=== PATIENT | male | born 1980 | race Two or more races ===

== ENCOUNTER 2024-03-30 06:08 | Inpatient (IN) | payer SELFPAY ==
[2024-03-30] VITALS (29 sets, daily range): BP systolic 118–182; BP diastolic 60–89; PULSE 63–88; TEMP 36.6–37; O2SAT 91–100; BMI 30.7; BMI 31.6
--- NOTE | 2024-03-30 06:39 | ED.GENADUL1 ---
HPI HPI - General Adult General Chief complaint: Dizziness Stated complaint: DIZZINESS Time Seen by Provider: 03/30/24 06:32 Source: patient Mode of arrival: ambulance Limitations: no limitations History of Present Illness HPI narrative: patient states he was [place] on [address] to [place] to visit his son. He became dizzy and describes spinning. States he pulled over at a [place]. Developed chest pressure and dyspnea . He was advised to call 911. States pressure lasted about 30 minutes. Now only has mild pain . Brought to ED by [facility]. No past history of heart disease. States he was diagnosed with cancer 6-8 years ago. No follow up Related Data Home Medications ?Medication ?Instructions ?Recorded ?Confirmed No Known Home Medications 03/30/24 03/30/24 Allergies Allergy/AdvReac Type Severity Reaction Status Date / Time No Known Drug Allergies Allergy Verified 03/30/24 06:17 Opioid HPI Opioid Management Most Recent Opioid Data: No Data to Display Review of Systems ROS Status of ROS 10 or more systems reviewed and unremarkable except as noted in history and below Exam Constitutional Vital Signs, click to edit/add: Last Vital Signs Temp 98.6 F 03/30/24 06:10 Pulse 81 03/30/24 06:10 Resp 18 03/30/24 06:35 BP 172/78 H 03/30/24 06:10 Pulse Ox 100 03/30/24 06:10 O2 Del Method Room Air 03/30/24 06:10 Common normals: no apparent distress, average body habitus, oriented x3, no limitations, healthy appearing, alert and well nourished [facility] Common normals: normocephalic and head/scalp atraumatic Eye Common normals: PERRL and EOMs intact bilaterally Respiratory Common normals: normal respiratory effort, no retractions, no use of accessory muscles and clear to auscultation bilaterally Cardio Common normals: regular rate, regular rhythm, S1 normal heart sound and S2 normal heart sound GI Common normals: Normal to inspection, nondistended, normoactive bowel sounds present, soft to palpation and non-tender Extremity Common normals: normal to inspection and full ROM Neuro Common normals: oriented x3, CN's II-XII intact bilaterally, moves all extremities and no focal motor deficits Psych Appearance: grossly normal Course Vital Signs Vital signs: Vital Signs Temperature 98.6 F 03/30/24 06:10 Pulse Rate 81 03/30/24 06:10 Respiratory Rate 18 03/30/24 06:10 Blood Pressure 172/78 H 03/30/24 06:10 Pulse Oximetry 100 03/30/24 06:10 Oxygen Delivery Method Room Air 03/30/24 06:10 Temperature 98.6 F 03/30/24 06:10 Pulse Rate 81 03/30/24 06:10 Respiratory Rate 18 03/30/24 06:35 Blood Pressure 172/78 H 03/30/24 06:10 Pulse Oximetry 100 03/30/24 06:10 Oxygen Delivery Method Room Air 03/30/24 06:10 Medical Decision Making MDM Narrative Medical decision making narrative: patient presents with chest pain and dizziness. No past history of the same. care transferred at change of shift to oncoming physician Discharge Plan Discharge Patient Disposition: Still a Patient
--- NOTE | 2024-03-30 06:45 | ECG_ITS ---
The [facility] [place] Test Date: 2024-03-30 Pat Name: KIANNA ESCOBEDO Department: Room: - Gender: Male [employer] Rol[employer] Operator: : 1980 Requested By: [id number] Order Number: [id number] Reading MD: JESSICA FRASER Measurements Intervals [place] Rate: 78 P: 43 MN: 182 QRS: 41 QRSD: 88 T: 19 QT: 378 QTc: 411 Interpretive Statements 1100 Sinus rhythm 9110 normal ECG No previous ECG available for comparison Electronically Signed On 03-30-2024 11:03:41 EDT by JESSICA FRASER
--- NOTE | 2024-03-30 06:45 | XR_ITS ---
The [address] [address] Patient Name: KIANNA ESCOBEDO MRN: [id number] date: 1980 Sex: M Assigned Patient Location: ER Current Patient Location: ED.MAIN Accession/Order Number: [id number] Exam Date: 03/30/2024 05:49 Report Date: 03/30/2024 07:21 At the request of: JAIDA HAHN Procedure: XR chest 1V EXAM: XR chest 1V, 03/30/2024 HISTORY: chest pain COMPARISON: None. TECHNIQUE: Portable AP view upright x-ray of the chest. FINDINGS: Borderline prominent cardiac silhouette. No hilar or mediastinal enlargement. The lungs and costophrenic clear. No acute osseous findings. XR/XR chest 1V IMPRESSION: No acute cardiopulmonary findings. Electronically authenticated by: REGLA CONSTANTINO Date: 03/30/2024 07:21
[2024-03-30 07:14] LABS: Mean Corpuscular HGB Conc 29.1 g/dL (29.9-35.2); Mean Corpuscular Hemoglobin 21.4 pg (25.9-34.0); Mean Corpuscular Volume 73.6 fL (80.0-94.0); Mean Platelet Volume 11.5 fL (9.5-13.5); Platelet Count 174 10^3/uL (150-450); Red Blood Count 3.22 10^6/uL (4.70-6.10); Red Cell Distribution Width 17.4 % (11.0-15.0); White Blood Count 3.4 10^3/uL (4.0-11.0)
[2024-03-30 07:22] LABS: Hematocrit 23.7 % (42.0-54.0); Hemoglobin 6.9 g/dL (14.0-18.0)
[2024-03-30 07:30] LABS: Anion Gap 14.9; BUN Creatinine Ratio 15.2; Calcium 8.9 mg/dL (8.5-10.1); Carbon Dioxide 25.6 mmol/L (21.0-32.0); Chloride 101 mmol/L (98-107); Estimated GFR (African America >60 (>=60); Estimated GFR (Non-African Ame >60 (>=60); Glucose 179 mg/dL (74-106); Potassium 3.5 mmol/L (3.5-5.1); Sodium 138 mmol/L (136-145); Troponin I High Sensitivity 36.4 pg/mL (4.0-76.1)
[2024-03-30 07:41] LABS: D Dimer 0.51 mg/L FEU (<=0.59)
[2024-03-30 07:45] LABS: Anisocytosis 1+; Eosinophils Absolute Manual 0.17 10^3/uL (0.00-0.70); Hypochromasia 1+; Lymphocytes Absolute Manual 0.54 10^3/uL (1.20-3.80); Microcytosis 1+; Ovalocytes 1+; Poikilocytosis 1+; Segmented Neut Absolute Manual 2.48 10^3/uL (1.4-6.5)
[2024-03-30 07:53] LABS: Occult Blood Positive
[2024-03-30] MEDS: PANTOPRAZOLE SODIUM 40 MG VIAL IV ×2 (08:08→22:02)
--- NOTE | 2024-03-30 08:09 | ED_ITS ---
HPI HPI - General Adult General Chief complaint: Dizziness Stated complaint: DIZZINESS Time Seen by Provider: 03/30/24 06:32 Source: patient Mode of arrival: ambulance Limitations: no limitations History of Present Illness HPI narrative: The patient was initially seen by Dr. Yeager and signed out to me after discussing the case with him thoroughly. Please see his full history and physical exam. Related Data Home Medications ?Medication ?Instructions ?Recorded ?Confirmed No Known Home Medications 03/30/24 03/30/24 Allergies Allergy/AdvReac Type Severity Reaction Status Date / Time No Known Drug Allergies Allergy Verified 03/30/24 06:17 Opioid HPI Opioid Management Most Recent Opioid Data: No Data to Display Exam Constitutional Vital Signs, click to edit/add: Last Vital Signs Temp 98.6 F 03/30/24 06:10 Pulse 71 03/30/24 08:00 Resp 24 H 03/30/24 08:00 BP 160/82 H 03/30/24 07:30 Pulse Ox 100 03/30/24 08:00 O2 Del Method Room Air 03/30/24 06:10 Course Vital Signs Vital signs: Vital Signs Temperature 98.6 F 03/30/24 06:10 Pulse Rate 81 03/30/24 06:10 Respiratory Rate 18 03/30/24 06:10 Blood Pressure 172/78 H 03/30/24 06:10 Pulse Oximetry 100 03/30/24 06:10 Oxygen Delivery Method Room Air 03/30/24 06:10 Temperature 98.6 F 03/30/24 06:10 Pulse Rate 71 03/30/24 08:00 Respiratory Rate 24 H 03/30/24 08:00 Blood Pressure 160/82 H 03/30/24 07:30 Pulse Oximetry 100 03/30/24 08:00 Oxygen Delivery Method Room Air 03/30/24 06:10 Medical Decision Making [facility] Narrative Medical decision making narrative: The patient is found to be anemic with a hemoglobin of 6.9 and heme positive stools. He is hemodynamically stable. Blood is ordered and the patient is being admitted. Findings were discussed with the patient. Differential Diagnosis Differential Diagnosis: Upper GI bleed, lower GI bleed, acute kidney injury, dysrhythmia Lab Data Lab results reviewed: Yes I reviewed the patient's lab results Labs: Lab Results 03/30/24 03/30/24 Range/Units 06:00 07:32 WBC 3.4 L (4.0-11.0) 10^3/uL RBC 3.22 L (4.70-6.10) 10^6/uL Hgb 6.9 L* (14.0-18.0) g/dL Hct 23.7 L* (42.0-54.0) % MCV 73.6 L (80.0-94.0) fL MCH 21.4 L (25.9-34.0) pg MCHC 29.1 L (29.9-35.2) g/dL RDW 17.4 H (11.0-15.0) % Plt Count 174 (150-450) 10^3/uL MPV 11.5 (9.5-13.5) fL Seg Neuts % (Manual) 73.0 Lymphocytes % (Manual) 16.0 L (20.5-60.0) % Atypical Lymphs % (Man) 0.0 % Monocytes % (Manual) 6.0 (1.7-12.0) % Eosinophils % (Manual) 5.0 (0.9-7.0) % Basophils % (Manual) 0.0 L (0.2-2.0) % Neutrophils # (Manual) 2.48 (1.4-6.5) 10^3/uL Lymphocytes # (Manual) 0.54 L (1.20-3.80) 10^3/uL Abs Atypical Lymphs Man 0.00 Monocytes # (Manual) 0.20 L (0.30-0.80) 10^3/uL Eosinophils # (Manual) 0.17 (0.00-0.70) 10^3/uL Basophils # (Manual) 0.00 (0.00-0.10) 10^3/uL Hypochromasia 1+ Poikilocytosis 1+ Anisocytosis 1+ Microcytosis 1+ Ovalocytes 1+ D-Dimer 0.51 (<=0.59) mg/L FEU Sodium 138 (136-145) mmol/L Potassium 3.5 (3.5-5.1) mmol/L Chloride 101 (98-107) mmol/L Carbon Dioxide 25.6 (21.0-32.0) mmol/L Anion Gap 14.9 BUN 12.0 (7.0-18.0) mg/dL Creatinine 0.79 (0.70-1.30) mg/dL Est GFR ( Amer) >60 (>=60) Est GFR (Non-Af Amer) >60 (>=60) BUN/Creatinine Ratio 15.2 Glucose 179 H (74-106) mg/dL Calcium 8.9 (8.5-10.1) mg/dL Troponin I High Sens 36.4 (4.0-76.1) pg/mL Stool Occult Blood Positive A Imaging Data Chest x-ray: Radiologist's impression: ITS Impressions Chest X-Ray 03/30/24 06:45 IMPRESSION: No acute cardiopulmonary findings. Electronically authenticated by: REGLA CONSTANTINO Date: 03/30/2024 07:21 ECG Data Attestation: I personally reviewed and interpreted this ECG as follows: (EKG on my interpretation shows sinus rhythm with a rate of 78 and no acute findings.) Discharge Plan Discharge Chief Complaint: Dizziness Clinical Impression: GI bleed, Anemia Patient Disposition: Admitted as Observation Time of Disposition Decision: 08:08 Condition: Good
[2024-03-30 08:53] LABS: Percent Iron Saturation 1.9 %
[2024-03-30] MEDS: AMLODIPINE BESYLATE 5 MG TABLET 10 MG PO (10:41)
--- NOTE | 2024-03-30 12:44 | PM.HP ---
HPI H&P: HPI History of Present Illness Chief complaint: CHEST PAIN, ANEMIA GI BLEED Narrative: 43-year-old male was traveling from [place] to [place] when he started to experience lightheadedness, shortness of breath so he pulled over and called EMS who brought the patient over to Emergency Room for further evaluation. EGD revealed patient to have severe anemia, poorly controlled blood pressure. The stool was positive for occult blood. Patient was admitted for symptomatic anemia and is now receiving one unit of packed red blood cell. Patient denies history of melanotic stool or bright red blood per rectum. He denies alcohol use or chronic NSAID use. Is no prior history of gastrointestinal bleed. Patient reports that a few days ago, he injured himself sustained a laceration on his right leg with significant bleeding. The bleeding was severe enough that he passed out after calling 911 and was brought over to [facility] in [place]. He was admitted for overnight observation.He was told that he has low blood count but did not require blood transfusion. Patient isn't sure of what his blood count was up on discharge. He is not on any prescription medications. He is a poor historian and has poor insight into his medical condition. Opioid HPI Opioid Management Most Recent Opioid Data: Last Pain Assessment 03/30/24 12:00 Last ORT Total Score 1 03/30/24 10:20 Last ORT Risk Category Low Risk 03/30/24 10:20 Review of Systems ROS Status of ROS 10 or more systems reviewed and unremarkable except as noted in history and below [facility] Medical History (Updated 03/30/24 @ 12:54 by Shaikh Sumeet MD) GI bleed ?K92.2 - Gastrointestinal hemorrhage, unspecified (ICD-10) Anemia ?D64.9 - Anemia, unspecified (ICD-10) Social History (Updated 03/30/24 @ 12:49 by Shaikh Sumeet MD) Within the past year, how often did you have a drink containing alcohol: never Score interpretation: A score less than 4 is consistent with normal alcohol consumption. Smoking status: Never smoker Non-prescribed substance use: denies use Highest level of school completed/degree received: 6th grade Do you think of yourself as: straight/heterosexual Gender Identity: male Meds Home Medications and Allergies Home Medications ?Medication ?Instructions ?Recorded ?Confirmed ?Type No Known Home Medications 03/30/24 03/30/24 History Allergies Allergy/AdvReac Type Severity Reaction Status Date / Time No Known Drug Allergies Allergy Verified 03/30/24 06:17 Exam Constitutional Vital Signs, click to edit/add: Last Vital Signs Temp 98.2 F 03/30/24 12:30 Pulse 68 03/30/24 12:30 Resp 18 03/30/24 12:30 BP 163/81 H 03/30/24 12:30 Pulse Ox 95 03/30/24 12:30 O2 Del Method Room Air 03/30/24 12:30 Documenting provider has reviewed patient's vital signs: yes Common normals: no apparent distress and oriented x3 General appearance: cooperative HENMT Common normals: normocephalic and head/scalp atraumatic Head and scalp: normocephalic and atraumatic Eye Common normals: conjunctivae normal and no scleral icterus Conjunctiva: conjunctiva(e) normal Respiratory Common normals: normal respiratory effort and clear to auscultation bilaterally Effort & inspection: able to speak in complete sentences Auscultation: clear to auscultation bilaterally Cardio Common normals: regular rate, S1 normal heart sound and S2 normal heart sound Rate: regular rate Heart sounds: S1 normal and S2 normal GI Common normals: Normal to inspection, nondistended, normoactive bowel sounds present, soft to palpation, non-tender and no hepatosplenomegaly Palpation: soft and no hepatosplenomegaly Extremity Common normals: no clubbing, cyanosis or edema Other: Left leg has stitches placed over a laceration. Wound appears to be new with no signs of infection Neuro Common normals: oriented x3, moves all extremities and no focal motor deficits Psych Common normals: mental status grossly normal, denies hallucinations, denies homicidal ideation and denies suicidal ideation Results Labs Labs: Short CBC 03/30/24 Range/Units 06:00 WBC 3.4 L (4.0-11.0) 10^3/uL Hgb 6.9 L* (14.0-18.0) g/dL Hct 23.7 L* (42.0-54.0) % Plt Count 174 (150-450) 10^3/uL BMP 03/30/24 06:00 Sodium 138 Potassium 3.5 Chloride 101 Carbon Dioxide 25.6 BUN 12.0 Creatinine 0.79 Glucose 179 H Calcium 8.9 Assessment and Plan Assessment and Plan (1) Symptomatic anemia: Assessment and Plan: Presented with hemoglobin of 6.9. He was experiencing shortness of breath, lightheadedness. Patient admitted for symptomatic anemia And is now receiving transfusion. Will check hemoglobin after transfusion. Patient will require close monitoring of his hemoglobin. Her initial clinical impression was that patient has anemia from upper gastrointestinal bleed but upon further inquiry it seems like he significant amount of blood recently from an injury at home for which she was also admitted and required overnight observation. Patient has poor insight and not give us more information and we are awaiting medical records from [facility] where he was admitted (2) Occult blood in stools: Assessment and Plan: Denies bright red blood per rectum or melanotic stools. His stool was positive for blood but it seems very unlikely that his anemia is from gastrointestinal bleed. He is on IV Protonix forty twice a day empirically and we will continue that for now until we have more information from his recent hospital admission at [facility] (3) Anemia due to acute blood loss: Assessment and Plan: Likely from laceration he sustained a few days ago. Awaiting medical records from outside hospital. He received one unit of packed red blood cell. Posttransfusion H and H is pending. Monitor and trend H and H closely. (4) Hypertension: Assessment and Plan: Elevated blood pressure. Likely undiagnosed and chronic. Started patient on amlodipine 10 mg once daily. He will need outpatient follow-up with PCP Qualifiers: Hypertension type: primary hypertension Qualified Code(s): I10 - Essential (primary) hypertension (5) Laceration of right leg excluding thigh: Assessment and Plan: right leg laceration sustained at home a few days that resulted in large amount of bleeding. Bleeding was significant enough that he passed out from it and was observed overnight at [facility]. there is no evidence of active bleeding Currently. Sutures are in place with no evidence of infection. We'll review her records from outside hospital once available. Qualifiers: Encounter type: subsequent encounter Qualified Code(s): S81.811D - Laceration without foreign body, right lower leg, subsequent encounter Plan Patient will require inpatient management of his symptomatic anemia to closely monitor his hemoglobin.
[2024-03-30] MEDS: LACTATED RINGER'S SOLUTION 1,000 ML 100 ML IV (12:50)
[2024-03-30 13:08] LABS: Hematocrit 27.8 % (42.0-54.0); Hemoglobin 8.3 g/dL (14.0-18.0)
--- OUTSIDE RECORDS SUMMARY | 2024-03-30 15:48 | XMS_ITS | CCD ---
Author Organization [facility] Care Team Providers Care Picker And Packer Name Role Phone AXEL ALEXANDER Referring Unavailabl e ANGERMEIER, AXEL Mathews Referring Unavailabl e ANGERMEIER, AXEL Mathews Referring Unavailabl e ANGERMEIER, AXEL Mathews Attending Unavailabl e ANGERMEIER, AXEL Mathews Referring Unavailabl e ANGERMEIER, AXEL Mathews Attending Unavailabl e ANGERMEIER, AXEL Mathews Referring Unavailabl e ANGERMEIER, AXEL Mathews Attending Unavailabl e ANGERMEIER, AXEL Mathews Referring Unavailabl e ANGERMEIER, AXEL Mathews Referring Unavailabl e ANGERMEIER, AXEL Mathews Referring Unavailabl e ANGERMEIER, AXEL Mathews Attending Unavailabl e ANGERMEIER, AXEL Mathews Referring Unavailabl e Unavailable Primary Care Provider Unavailabl e PROVIDER, UNKNOWN Admitting Unavailable PROVIDER, UNKNOWN Attending Unavailable PROVIDER, UNKNOWN Admitting Unavailable COLEEN BUSH Attending Unavailable PROVIDER, UNKNOWN Admitting Unavailable DAGO SIMON Attending Unavailable PROVIDER, UNKNOWN Admitting Unavailable PROVIDER, UNKNOWN Attending Unavailable Medications Current Medications Medication Drug Class(es) Dates Sig (Normalized) Sig (Original) acetaminophen 500 mg oral tablet (2 sources) Start: 03-26-2024 End: 04-25-2024 take 1 tablet by mouth every six hours as needed for pain acetaminophen (TYLENOL) 500 MG tablet Take 1 Tablet by mouth every 6 hours as needed for Pain or Fever. 30 Tablet 0 03/26/2024 04/25/2024 Active amLODIPine 10 mg oral tablet (3 sources) Dihydropyridine Calcium Channel Cain Start: 11-29-2020 take 1 tablet by mouth once daily amLODIPine (NORVASC) 10 MG tablet Indications: Essential hypertension TAKE 1 TABLET BY MOUTH DAILY. 90 Tablet 3 11/29/2020 Active amoxicillin 500 mg oral capsule (3 sources) Penicillin-class Antibacterial take 1 capsule by mouth three times daily amoxicillin (AMOXIL) 500 MG capsule Take 500 mg by mouth 3 times daily. 0 Active ferrous sulfate 325 mg oral tablet (2 sources) Start: 03-26-2024 End: 06-24-2024 take 1 tablet by mouth once daily ferrous sulfate 325 (65 Fe) MG tablet Take 1 Tablet by mouth daily. 30 Tablet 2 03/26/2024 06/24/2024 Active ibuprofen 600 mg oral tablet (2 sources) Nonsteroidal Anti-inflammatory Drug Start: 03-26-2024 End: 04-25-2024 take 1 tablet by mouth every six hours as needed for pain ibuprofen (MOTRIN) 600 MG tablet Take 1 Tablet by mouth every 6 hours as needed for Pain. 30 Tablet 0 03/26/2024 04/25/2024 Active 24 hr metFORMIN hydrochloride 500 mg extended release oral tablet (3 sources) Biguanide Start: 12-10-2020 take 1 tablet by mouth once daily at dinner metformin (GLUCOPHAGE-XR) 500 MG XR tablet TAKE 1 TABLET BY MOUTH DAILY (WITH DINNER). 90 Tablet 3 12/10/2020 Active piperacillin 4000 mg / tazobactam 500 mg injection (1 source) Penicillin-class Antibacterial, beta Lactamase Inhibitor Start: 03-26-2024 Piperacillin-Tazob actam in D5W (ZOSYN) 4-0.5 GM/100ML ivpb 4,500 mg 100 mL Completed/Discontinued Medications Medication Drug Class(es) Dates Sig (Normalized) Sig (Original) ceFAZolin 1000 mg injection (1 source) Cephalosporin Antibacterial Start: 03-26-2024 End: 03-26-2024 CeFAZolin (ANCEF) 1-4 GM-%(50ML) in dextrose 50 mL ivpb iohexol (OMNIPAQUE) 350 MG/ML injection (1 source) Start: 03-26-2024 End: 03-26-2024 iohexol (OMNIPAQUE) 350 MG/ML injection 1 ml morphine sulfate 4 mg/ml cartridge (1 source) Opioid Agonist Start: 03-26-2024 End: 03-26-2024 morphine sulfate 4 MG/ML injection Start: 03-26-2024 End: 03-26-2024 morphine sulfate 4 MG/ML inj ection Problems Active Problems Problem Classification Problem Date Documented Da te Episodic/Chronic Deficiency and other anemia (1 source) Anemia due to blood loss; Translations: [Iron deficiency anemia secondary to blood loss (chronic)] 03-27-2024 Chronic Deficiency and other anemia (1 source) Iron deficiency anemia; Translations: [Iron deficiency anemia, unspecified] 03-26-2024 Episodic Deficiency and other anemia (1 source) Iron deficiency anemia, unspecified; Translations: [Iron deficiency anemia, unspecified] Onset: 03-26-2024 Episodic Essential hypertension (3 sources) Essential hypertension; Translations: [Essential (primary) hypertension] Onset: 11-29-2020 11-29-2020 Chronic Headache; including migraine (1 source) Tension-type headache, unspecified, not intractable; Translations: [Tension headache] Onset: 12-11-2022 Chronic Influenza (1 source) Influenza due to other identified influenza virus with other respiratory manifestations; Translations: [Influenza A H1N1 infection] Onset: 11-05-2022 Episodic Open wounds of extremities (1 source) Stab wound of lower limb; Translations: [Laceration without foreign body, left lower leg, initial encounter] 03-26-2024 Episodic Open wounds of extremities (1 source) Laceration without foreign body, right lower leg, initial encounter; Translations: [Laceration without foreign body, right lower leg, initial encounter] Onset: 03-26-2024 Episodic Other connective tissue disease (1 source) Other muscle spasm; Translations: [Trapezius muscle spasm] Onset: 12-11-2022 Episodic Other connective tissue disease (1 source) Myalgia, unspecified site; Translations: [Myalgia] Onset: 12-11-2022 Episodic Other male genital disorders (1 source) Disorder of penis, unspecified; Translations: [Disorder of penis, unspecified] Onset: 09-04-2018 Chronic Other nutritional; endocrine; and metabolic disorders (1 source) Obesity, unspecified; Translations: [Obesity, unspecified] Onset: 09-04-2018 Chronic Other nutritional; endocrine; and metabolic disorders (3 sources) Obese class I; Translations: [Obesity, unspecified] Onset: 01-29-2017 11-27-2020 Chronic Residual codes; unclassified (2 sources) Transient alteration of awareness; Translations: [Transient alteration of awareness] Onset: 03-26-2024 03-26-2024 Episodic Superficial injury; contusion (1 source) Superficial foreign body, left lower leg, initial encounter; Translations: [Superficial foreign body (splinter) of hip, thigh, leg, and ankle, without major open wound and without mention of infection] 03-26-2024 Episodic Syncope (1 source) Syncope; Translations: [Syncope and collapse] 03-27-2024 Episodic Unclassified (1 source) Penile Cancer Onset: 01-30-2018 Unclassified (1 source) Acute cough; Translations: [Acute cough] Onset: 11-05-2022 Past or Other Problems Problem Classification Problem Date Documented Da te Episodic/Chronic Cancer of other male genital organs (4 sources) Personal history of malignant neoplasm of other male genital organs; Translations: [History of malignant neoplasm of penis] Onset: 10-29-2017 11-27-2020 Episodic Deficiency and other anemia (3 sources) Microcytic hypochromic anemia; Translations: [Iron deficiency anemia, unspecified] Onset: 01-29-2017 11-27-2020 Episodic Headache; including migraine (3 sources) Headache; Translations: [Headache] Onset: 01-02-2007 03-04-2019 Episodic Other screening for suspected conditions (not mental disorders or infectious disease) (1 source) Encounter for screening for other disorder; Translations: [Encounter for screening for other disorder] Onset: 10-29-2017 Episodic Results Test Name Value Interpretation Reference Range Facil ity BASIC METABOLIC PANELon 05-0 Anion gap [Moles/Vol] 15 mmol/L Normal 10-20 [facility] Comment on above: Performed By: #### C H8 #### [facility] [address] [place] [address], Calcium [Mass/Vol] 7.9 mg/dL Low 8.6-10.3 [facility] Comment on above: Performed By: #### C H8 #### [facility] [address] [place] [address], Chloride [Moles/Vol] 105 mmol/L Normal 98-107 [facility] Comment on above: Performed By: #### C H8 #### [facility] [address] [place] [address], CO2 [Moles/Vol] 19 mmol/L Low 21-31 [facility] Comment on above: Performed By: #### C H8 #### [facility] [address] [place] [address], Creatinine [Mass/Vol] 0.80 mg/dL Normal 0.70-1.30 [facility] Comment on above: Performed By: #### C H8 #### [facility] [address] [place] [address], ESTIMATED GFR (CKD-EPI) 112 mL/min/1.73sqm Normal >=60 [facility] Comment on above: Result Comment: 2020 CKD EPI Equation using Creatinine without Race Comment: Estimated glomerular filtration rate (eGFR) is calculated without a race coefficient. Values should be interpreted in the context of the patient's full clinical presentation. Reference: 1. Rodolfo C, Jaky M, Aldair HERNANDEZ, et al.. A Unifying Approach for GFR Estimation: Recommendations of the NKF-ASN Task Force on Reassessing the Inclusion of Race in Diagnosing Kidney Disease. Dutch Journal of Kidney Diseases 2021;79(2):268-88.e1. 2. N Engl J Med 1 Vol. 385 Issue 19 Pages [id number] Performed By: #### C H8 #### [facility] [address] [place] [address], Glucose [Mass/Vol] 235 mg/dL High 74-109 [facility] Comment on above: Performed By: #### C H8 #### [facility] [address] [place] [address], Potassium [Moles/Vol] 3.9 mmol/L Normal 3.5-5.0 [facility] Comment on above: Performed By: #### C H8 #### [facility] [address] [place] [address], Sodium [Moles/Vol] 135 mmol/L Low 136-145 [facility] Comment on above: Performed By: #### C H8 #### [facility] [address] [place] [address], Urea nitrogen [Mass/Vol] 15 mg/dL Normal 7-25 [facility] Comment on above: Performed By: #### C H8 #### [facility] [address] [place] [address], Basic metabolic 2000 panelon 03-27-2024 Anion gap [Moles/Vol] 15 mmol/L 10 - 20 [facility] Calcium [Mass/Vol] 7.9 mg/dL Low 8.6 - 10. 3 mg/dL [facility] Chloride [Moles/Vol] 105 mmol/L 98 - 107 mmol/L [facility] CO2 [Moles/Vol] 19 mmol/L Low 21 - 31 mmol/L [facility] Creatinine [Mass/Vol] 0.80 mg/dL 0.70 - 1.30 mg/dL [facility] GFR/1.73 sq M.predicted CKD-EPI (S/P/Bld) [Vol rate/Area] 112 - PINF [facility] Comment on above: 2020 CKD EPI Equatio n using Creatinine without Race Comment: Estimated glomerular filtration rate (eGFR) is calculated without a race coefficient. Values should be interpreted in the context of the patient's full clinical presentation. Reference: 1. Rodolfo C, Jaky M, Aldair DC, et al.. A Unifying Approach for GFR Estimation: Recommendations of the NKF-ASN Task Force on Reassessing the Inclusion of Race in Diagnosing Kidney Disease. Dutch Journal of Kidney Diseases 202;79(2):268-88.e1. 2. N Engl J Med 1 Vol. 385 Issue 19 Pages [id number] Glucose [Mass/Vol] 235 mg/dL High 74 - 109 mg/dL [facility] Interpretation and review of laboratory results Abnormal [facility] Potassium [Moles/Vol] 3.9 mmol/L 3.5 - 5.0 mmol/L [facility] Sodium [Moles/Vol] 135 mmol/L Low 136 - 145 mmol/L [facility] Urea nitrogen [Mass/Vol] 15 mg/dL 7 - 25 mg/dL [facility] CBC WITH DIFFERENTIALon Basophils (Bld) [#/Vol] 0.06 10*3/uL Normal 0.00-0.20 [facility] Comment on above: Performed By: #### h iv1 hiv2 agab scrn #### [facility] [address] [facility] [address] [facility] [address] [place], [place], Basophils/100 WBC (Bld) 1.0 % Normal <=1.9 [facility] Comment on above: Performed By: #### h iv1 hiv2 agab scrn #### [facility] [address] [place] [address], Eosinophils (Bld) [#/Vol] 0.11 10*3/uL Normal 0.00-0.70 [facility] Comment on above: Performed By: #### h iv1 hiv2 agab scrn #### [facility] [address] [place] [address], Eosinophils/100 WBC (Bld) 2.1 % Normal 0.1-4.0 [facility] Comment on above: Performed By: #### h iv1 hiv2 agab scrn #### [facility] [address] [place] [address], Erythrocyte distribution width (RBC) [Ratio] 18.9 % High 11.5-14.5 [facility] Comment on above: Performed By: #### h iv1 hiv2 agab scrn #### [facility] [address] [place] [address], Hematocrit (Bld) [Volume fraction] 25.3 % Low 41.0-53.0 [facility] Comment on above: Performed By: #### h iv1 hiv2 agab scrn #### [facility] [address] [place] [address], Hemoglobin (Bld) [Mass/Vol] 7.4 g/dL Low 13.9-16.3 [facility] Comment on above: Performed By: #### h iv1 hiv2 agab scrn #### [facility] [address] [place] [address], Lymphocytes (Bld) [#/Vol] 0.90 10*3/uL Low 1.00-4.80 [facility] Comment on above: Performed By: #### h iv1 hiv2 agab scrn #### [facility] [address] [place] [address], Lymphocytes/100 WBC (Bld) 16.6 % Low 24.0-44.0 [facility] Comment on above: Performed By: #### h iv1 hiv2 agab scrn #### [facility] [address] [place] [address], MCH (RBC) [Entitic mass] 20.6 pg Low 26.0-34.0 [facility] Comment on above: Performed By: #### h iv1 hiv2 agab scrn #### [facility] [address] [place] [address], MCHC (RBC) [Mass/Vol] 29.1 g/dL Low 32.0-35.9 [facility] Comment on above: Performed By: #### h iv1 hiv2 agab scrn #### [facility] [address] [place] [address], MCV (RBC) [Entitic vol] 71 fL Low 80-100 [facility] Comment on above: Performed By: #### h iv1 hiv2 agab scrn #### [facility] [address] [place] [address], MONOCYTE DISTRIBUTION WIDTH 16 Normal <=20 [facility] Comment on above: Performed By: #### h iv1 hiv2 agab scrn #### [facility] [address] [place] [address], Monocytes (Bld) [#/Vol] 0.44 10*3/uL Normal 0.20-1.00 [facility] Comment on above: Performed By: #### h iv1 hiv2 agab scrn #### [facility] [address] [place] [address], Monocytes/100 WBC (Bld) 8.1 % Normal 2.0-11.0 [facility] Comment on above: Performed By: #### h iv1 hiv2 agab scrn #### [facility] [address] [place] [address], Neutrophils (Bld) [#/Vol] 3.92 10*3/uL Normal 1.50-8.00 [facility] Comment on above: Performed By: #### h iv1 hiv2 agab scrn #### [facility] [address] [place] [address], Neutrophils/100 WBC (Bld) 72.2 % Normal 31.0-76.0 [facility] Comment on above: Performed By: #### tressa iv1 hiv2 agab scrn #### [facility] [address] [place] [address], Platelet mean volume (Bld) [Entitic vol] 8.9 fL Normal 7.5-11.2 [facility] Comment on above: Performed By: #### h iv1 hiv2 agab scrn #### [facility] [address] [place] [address], Platelets (Bld) [#/Vol] 129 10*3/uL Low 150-400 [facility] Comment on above: Performed By: #### h iv1 hiv2 agab scrn #### [facility] [address] [place] [address], RBC (Bld) [#/Vol] 3.57 10*6/uL Low 4.50-5.90 [facility] Comment on above: Performed By: #### h iv1 hiv2 agab scrn #### [facility] [address] [place] [address], WBC (Bld) [#/Vol] 5.4 10*3/uL Normal 4.5-11.5 [facility] Comment on above: Performed By: #### tressa iv1 hiv2 agab scrn #### [facility] [address] [place] [address], Basophils (Bld) [#/Vol] 0.06 10*3/uL 0.00 - 0.20 K/uL [facility] Basophils/100 WBC (Bld) 1.0 % NINF - 1.9 % [facility] Eosinophils (Bld) [#/Vol] 0.11 10*3/uL 0.00 - 0.70 K/uL [facility] Eosinophils/100 WBC (Bld) 2.1 % 0.1 - 4.0 % [facility] Erythrocyte distribution width (RBC) [Ratio] 18.9 % High 11.5 - 14.5 % [facility] Hematocrit (Bld) [Volume fraction] 25.3 % Low 41.0 - 53.0 % [facility] Hemoglobin (Bld) [Mass/Vol] 7.4 g/dL Low 13.9 - 16.3 g/dL [facility] Interpretation and review of laboratory results Abnormal [facility] Lymphocytes (Bld) [#/Vol] 0.90 10*3/uL Low 1.00 - 4.80 K/uL [facility] Lymphocytes/100 WBC (Bld) 16.6 % Low 24.0 - 44.0 % [facility] MCH (RBC) [Entitic mass] 20.6 pg Low 26.0 - 34.0 pg [facility] MCHC (RBC) [Mass/Vol] 29.1 g/dL Low 32.0 - 35.9 g/dL [facility] MCV (RBC) [Entitic vol] 71 fL Low 80 - 100 fL [facility] Monocyte distribution width Auto (Bld) [Entitic vol] 16 NINF - 20 [facility] Monocytes (Bld) [#/Vol] 0.44 10*3/uL 0.20 - 1.00 K/uL [facility] Monocytes/100 WBC (Bld) 8.1 % 2.0 - 11.0 % [facility] Neutrophils (Bld) [#/Vol] 3.92 10*3/uL 1.50 - 8.00 K/uL [facility] Neutrophils/100 WBC (Bld) 72.2 % 31.0 - 76.0 % [facility] Platelet mean volume (Bld) [Entitic vol] 8.9 fL 7.5 - 11.2 fL [facility] Platelets (Bld) [#/Vol] 129 10*3/uL Low 150 - 400 K/uL [facility] RBC (Bld) [#/Vol] 3.57 10*6/uL Low [facility] WBC (Bld) [#/Vol] 5.4 10*3/uL 4.5 - 11.5 K/uL [facility] CTA LOWER EXTREM RIGHT W/on 03-27-2024 CTA LOWER EXTREM RIGHT W/ EXAMINATION: CTA LOWER EXTREM RIGHT W/ 03/26/2024 06:25 PM CLINICAL HISTORY: RLE puncture wound ASSOCIATED DIAGNOSIS: RLE puncture wound ORDERING PROVIDER: BR[employer]KE [employer] NOTE: COMPARISON: XR FEMUR RIGHT MINIMUM 2 VIEWS 03/26/2024, 6:45 PM TECHNIQUE: CT Angiogram of the right lower extremity with intravenous contrast. Contiguous axial collimated imaging was performed of the right lower extremity following bolus administration of intravenous contrast. Coronal and sagittal multiplanar reconstructions and sagittal and coronal 3D maximum intensity projections were reconstructed from the axial data. Before infusion of intravenous contrast, radiology personnel investigated the possibility of an allergic history and of any history of reaction to iodinated contrast material. Contrast Protocol: Omnipaque 350 [>or =100lb] 100 ml [<100 lb] 1 ml per 1 lb. INTRA-PROCEDURE MEDS: iohexol (OMNIPAQUE) 350 MG/ML injection 100 mL Route: Intravenous Push FINDINGS: CTA PELVIC VESSELS L. Common iliac artery: No significant stenosis. R. Common iliac artery: No significant stenosis. R. External iliac artery: No significant stenosis. R. Internal iliac artery: No significant stenosis. CTA RIGHT LOWER EXTREMITY R. Common femoral artery: No significant stenosis. R. Profunda femoris artery: No significant stenosis. R. SFA: No significant stenosis. R. Popliteal artery: No significant stenosis. R. Anterior tibial artery: No significant stenosis. R. Tibioperoneal trunk: No significant stenosis. R. Posterior tibial artery: No significant stenosis. R. Peroneal artery: No significant stenosis. R. Dorsalis pedis artery: No significant stenosis. R. Plantar artery: No significant stenosis. L. Common femoral artery: No significant stenosis. L. Profunda femoris artery: No significant stenosis. L. SFA: No significant stenosis. L. Popliteal artery: No significant stenosis. L. Anterior tibial artery: Not included in the image L. Tibioperoneal trunk: Not included in the image L. Posterior tibial artery: No significant stenosis. L. Peroneal artery: Not included in the image L. Dorsalis pedis artery: Not included in the image L. Plantar artery: Not included in the image NON-VASCULAR FINDINGS Visible Urinary bladder: No calculi Visible GI tract: No evidence of obstruction. Peritoneum and retroperitoneum: No free fluid or free air is noted. Lymph Nodes: No pelvic lymphadenopathy is evident Prostate and seminal vesicles: Unremarkable Visualized musculoskeletal structures: No acute fracture or destructive osseous lesion is identified IMPRESSION: 1. No acute arterial injury of the right lower extremity. MACRO: None Normal [facility] [employer] ED Provider Noteson 03-27-20 Talent [employer]visor Authentication Interface Message Text EMERGENCY DEPARTMENT - VISIT NOTE HISTORY OF PRESENT ILLNESS ------- Delvin Dubon is a 43 year old male with a history of htn on chart review presenting to the ED for syncope. He reports: Patient recently in the hospital for laceration to his leg with significant blood loss. Was discharged home. Upon arriving home felt lightheaded, vision changes and had a syncopal event. He was out for approximately 5 seconds. Re-presented here to the ED. Denies any chest pain shortness of breath abdominal pain. Denies fever chills. Denies more blood loss after discharge home however does endorse significant pain to his leg. Denies difficulty walking Review of external notes and records: 1 CTA from earlier today shows no active vascular injury Hgb 7.7 PHYSICAL EXAM ----- Patient Vitals for the past 24 hrs: BP Temp Temp src Pulse Resp SpO2 03/27/24 0439 -- -- -- 68 18 100 % 03/27/24 0430 117/56 -- -- 67 19 99 % 03/27/24 0400 119/72 -- -- 73 20 100 % 03/27/24 0217 143/77 98.4 ???F (36.9 ???C) Oral 74 18 98 % Exam: Constitutional: Nursing triage notes reviewed, Vital signs reviewed, Alert, Awake, No acute distress HENT: Normocephalic. Atraumatic. Lungs: Clear to auscultation, No respiratory distress Heart: Regular rate, regular rhythm 2+ radial pulses, well perfused Abdomen: Soft, Nondistended, Nontender, no peritoneal signs Extremities: no deformities, Moves all 4 extremities with appropriate strength. Laceration to right leg hemostatic, wound well-appearing, compartments soft Neuro: Alert. Normal speech. PERRL, moves all 4 extremities. Skin: Warm and Dry MEDICAL DECISION MAKING and ED COURSE -- Evaluated by EM attending Matt Simon Nursing triage and assessment notes reviewed and incorporated. Chart Review: See HPI Course: ED Course as of 03/27/24 0556 Senait March 27, 2024 0301 BP: 143/77 [MS] 0301 Temperature: 98.4 ???F (36.9 ???C) [MS] 0301 Heart Rate: 74 [MS] 0301 Respiratory Rate: 18 [MS] 0301 SpO2: 98 % [MS] 0301 Vitals: Normotensive, afebrile, not tachycardic, not hypoxic on RA Tele reviewed: Sinus rhythm [MS] 0301 BMP without [place] or clinically significant electrolyte abnormalities contributing to patient's presentation [MS] 0301 CBC without leukocytosis, no significant anemia from prior today, normal platelets [MS] 0302 HS Troponin I(!): 19 Mildly elevated will delta [MS] 0441 HS Troponin I(!): 19 stable [MS] ED Course User Index [MS] Thang Garland MD Medical Decision Making: Please see full HPI, Physical exam, and ED course above. Chart reviewed and summary of external notes/encounters in HPI Labs independently interpreted in ED course Imaging interpreted in ED course Telemetry/Vitals interpreted in ED course This is a 43 year old male with pmh per above who presents to the ed for syncope. On arrival in no acute distress he is well-appearing exam grossly unremarkable. Labs obtained interpreted ED course above shows stable hemoglobin. Troponin stable x2 Patient felt improved after observation. In the ED. He was ambulatory around the emergency department without recurrence of presyncopal like symptoms or worsening leg pain. He was appropriate for discharge home IMPRESSION AND DISPOSITION --------- Clinical Impression Diagnosis Comment Syncope, unspecified syncope type [R55] Blood loss anemia [D50.0] Disposition: Home The patient has received a medical screening examination and within reasonable clinical confidence an emergency medical condition has not been identified. Counseling: Spoke with the patient and discussed today's findings, in addition to providing specific details for the plan of care and expected course. They were given the opportunity to ask questions. Discussed return precautions and importance of follow-up. Advised to follow-up with pcp. Advised to return to the ED for changing or worsening symptoms, new symptoms, complaint specific precautions, and precautions listed on the discharge paperwork. Thang Garland MD PGY-3 Emergency Medicine ATTENDING NOTE I saw and evaluated the patient. I personally obtained the anton and critical portions of the history and physical exam. I reviewed the resident's documentation and discussed the patient with the resident. I agree with the resident's medical decision making as documented in the resident's note. Dago Simon MD Normal [employer] Authentication Interface Message Text SHIREEN 43M h/o penile CA, constipation, GIBs, JAQUAN. CAT2 trauma stab to leg. Diaphoretic and pale initially. CTA negative. XR negative. [ ] trauma lac repair [ ] tertiary [ ] dispo ED COURSE: ED Course as of 03/27/24 0036 SunMarch 26, 2024 1850 VSS on presentation in the setting of CAT 2 trauma penetrating wound to distal LLE with ?significant blood loss [BC] 1906 LACTATE, SERUM(!!): Lactate 3.5(!!) Moderately elevated in the setting of trauma and penetrating wound to distal LLE ?significant blood loss c/b syncope, pallor, diaphoretic [BC] 1907 BASIC METABOLIC PANEL(aka BMP) [CH8](!): Glucose 193(!) Sodium 139 Potassium 3.6 Carbon Dioxide 20(!) Chloride 108(!) BUN 18 Creatinine 1.03 Calcium 7.9(!) Anion Gap 15 Estimated GFR 92 Hyperglycemia without significant evidence of AGMA c/w DKA, mild electrolyte derangement in the setting of trauma and unlikely to be contributory to patient condition/symptoms [BC] 1908 PARTIAL THROMBOPLASTIN TIME(!): aPTT <21(!) No coagulopathy in the setting of trauma. [BC] 190 PROTHROMBIN TIME AND INR(!): Protime 12.4 INR 1.11(!) No coagulopathy in the setting of trauma. [BC] 190 ETHANOL, SERUM: Ethanol <10 Undetectable in the setting of trauma [BC] 191 COMPLETE BLOOD COUNT W/DIFF (RAPID RESPONSE LABS)(!): WBC 4.9 RBC 3.63(!) Hemoglobin 7.7(!) Hematocrit 26.0(!) MCV 72(!) MCH 21.1(!) MCHC 29.4(!) Platelet 142(!) RDW-CV% 19.1(!) MPV 8.5 Neutrophils 52.7 Neutrophil # 2.56 Lymphocytes 31.4 Lymph Absolute 1.52 Monocytes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 stable. No Raccoon eyes. No Carrasco's sign. Eyes: PERRL. Pupils are 4 mm to 3 mm bilaterally. EOMI. No conjunctival injection. Ears: No hemotympanum. Nose: No nasal deformity. No septal hematoma. Mouth/Throat: Airway intact. No malocclusion. No dental injury. Neck: Trachea midline. No cervical midline bony tenderness, deformities, or step-offs. Cardiovascular: Normal rate. Regular rhythm. Heart sounds normal. Peripheral pulses are 2+ in all extremities. Pulmonary/Chest: Lungs are clear bilaterally. No decreased breath sounds. No external evidence of trauma to the chest. Chest wall is stable and non-tender. No crepitus. No flail segment. No asymmetric rise. Abdominal: No distension. Soft. No tenderness to palpation. No external evidence of abdominal trauma. Genitourinary: No evidence of genital injury. Back: No midline bony tenderness, deformities, or step-offs of the thoracic or lumbar spine. No abrasions or ecchymosis Rectal: No gross blood. Extremities: Pelvis stable to compression and non tender. RUE: No deformities. Full ROM. There is no bony tenderness. LUE: No deformities. Full ROM. There is no bony tenderness. RLE: No deformities. Full ROM. There is no bony tenderness. 2.5 centimeter laceration to the medial calf. LLE: No deformities. Full ROM. There is no bony tenderness. Neurological: GCS score is 11. Strength is 5/5 in upper and lower extremities bilaterally. Distal sensation grossly intact . Alert normally oriented Psychiatric: Normal affect. ED COURSE IN [place] 6:04 PM: BP 145/91, HR 78, SpO2 100, RR 18 Consultations: Trauma is at bedside and assisted with evaluation and formulation of plan. SCRIBE ATTESTATION 03/27/2024, 1:25 AM. This note is prepared by Jessica Breen, acting as Scribe for Ariel Mccracken. The scribe's above documentation has been prepared under my direction and personally reviewed by me in its entirety. I confirm that the note above accurately reflects al (more content not included)... Normal [facility] ED Triage Noteson 03-26-2024 Talent Advisor Authentication Interface Message Text See EMS runsheet Normal [facility] ETHANOL, SERUMon 03-26-2024 Ethanol [Mass/Vol] mg/dL Normal None Detected [facility] Comment on above: Performed By: #### C H8, ETOH #### [facility] [address] [place] [address], [id number] Ethanol [Mass/Vol] mg/dL None Dete cted mg/dL [facility] Interpretation and review of laboratory results Normal [facility] H AND [place] 03-26-2024 Talent Advisor Authentication Interface Message Text ---- Attestation signed by Narciso Smith MD at 03/27/2024 6:50 PM Teaching Physician Note: I saw and evaluated the patient. I personally obtained the anton and critical portions of the history and physical exam. I reviewed the resident's/CHAPIN's documentation and discussed the patient with the resident/CHAPIN. I agree with the medical decision making as documented in the resident's/CHAPIN's note, with the following addenda/exceptions: LLE puncture wound from metal pole at work Primary intact, pulses equal throughout Secondary w/ proximal/medial L calf 3cm laceration CTH neg CTA RLE neg XR RLE no fx/foreign bodies Wound washout/lac repair Dispo per ED Narciso Smith MD Division of Trauma, Critical Care, Bae, and Emergency General Surgery Department of Surgery [facility] [phone] ---- [facility] Department of Surgery Division of Trauma Surgery, Acute Care Surgery, Critical Care, and Bae TRAUMA SURGERY HISTORY AND PHYSICAL Delvin Dubon [id number] BASIC INJURY INFORMATION: Level of activation: Category 2 Trauma Mode of transport: Ambulance: EMS Mechanism of injury: Metal pole from leg Complicating features: Greenlandic speaking, AMS Protective measures: Not applicable Date of Injury: 03/26/2024 Time of Injury: ~1600 Patient origin: Scene HISTORY OF PRESENT INJURY: Delvin Dubon is a 43 year old male brought in by EMS following a metal pole through his right lower leg on 03/26/2024. Patient was at work when a metal pole went through his right lower leg. Patient went home, took a shower and suddenly dizzy, faint, and diaphoretic. Patient's family member wrapped the wound prior to EMS arrival. EMS found patient on his patio. Loss of consciousness: Unknown Initial interventions: None Hemodynamic status in ED: HDS PRIMARY SURVEY: Airway: Intact Breathing: Normal Breath Sounds: Breath sounds equal bilaterally. Circulation: Pulses: Normal Skin: Pale, Cool, Dry , and Diaphoretic Disability: Pupils: PERRL GCS: Best Eyes: 4 Best Verbal: 5 Best Motor: 6 Total: 15 SECONDARY SURVEY: BP 145/91 Pulse 78 Temp 98.2 ???F (36.8 ???C) Resp 18 SpO2 100% Neurologic: Alert. Movements groggy. HEENT: Head: No lacerations, bone step-offs, or abrasions; midface stable to palpation Eyes: PERRLA, conjunctiva/corneas without lesions. Ears: No hemotympanum Nose: Septum midline, no crepitus with motion. Throat: Oral cavity without trauma. Neck: No midline tenderness, lacerations, or wounds Chest: No crepitus or pain with palpation; no abrasions or contusions; no gross deformities Pulmonary: Breath sounds clear, symmetrical; no wheezes, rales, or consolidation Cardiovascular: Pulses: Bilateral radial, femoral, DP and PT pulses are normal. Abdomen: Non-distended; non-tender to palpation; no scars, lacerations, or contusions Rectal: No gross blood noted. Pelvis/Perineum: Pelvis is stable to palpation Musculoskeletal: Back/Spine: Thoracolumbar spinal column non-tender Extremities: 2.5cm laceration to the anteromedial aspect of the lower RLE. Moves all extremities spontaneously, but movements are slowed and groggy. Additional exam findings: Altered mental status PAST MEDICAL HISTORY: HTN, anemia, Hx of penile ca PAST SURGICAL HISTORY: No past surgical history on file. PRE-ADMISSION MEDICATIONS: (Not in a hospital admission) Anti-platelet use: None per chart review Anti-coagulant use: None per chart review ALLERGIES: No Known Allergies SOCIAL HISTORY: Social History Socioeconomic History Marital status: Single Tobacco Use Smoking status: Former Smokeless tobacco: Never Tobacco comments: rarely Substance and Sexual Activity Alcohol use: Not Currently Comment: rarely Drug use: No Living status: Home Primary language: Greenlandic Functional status: Independent Impairments: Unknown Assistive Devices Used: Unknown FAMILY HISTORY: Family History Problem Relation Age of Onset Coronary Artery Disease Father Hypertension Father REVIEW OF SYSTEMS: Constitutional: +dizzy, fatigued, diaphoretic Eyes: Negative Ears/Nose/Mouth/Thr oat: Negative Respiratory: Negative Cardiovascular: Negative Gastrointestinal: Negative Genitourinary: Negative Musculoskeletal: +R leg puncture wound Neurologic: Negative Psychiatric: Negative Skin/Breast: Negative Endocrine: Negative Rheumatologic: Negative Allergic/Immunologi c: Negative Significant positives: General and MSK BASIC LABS Results for orders placed or performed during the hospital encounter of 06/25/21 COVID/INFLUENZA Result Value Ref Range Influenza A Not Detected Not Detected Influenza B Not Detected Not Detected SARS-CoV-2 Detected (A) Not Detected RADIOLOG (more content not included)... Normal [facility] HIV 1 and 2 Ab and HIV 1 p24 Ag panel IAon 03-26-2024 HIV 1+2 Ab+HIV1 p24 Ag IA Ql Non-Reactive Non-Reactive [facility] Comment on above: No laboratory eviden ce for HIV Infection. Negative result does not rule out acute HIV infection. If acute HIV infection is suspected, recommend ordering an HIV-1 RNA quanitification test. Interpretation and review of laboratory results Normal [facility] HIV Information: [place] Rev. code 3701.243(E): This information has been disclosed to you from confidential records protected from disclosure by state law. You shall make no further disclosure of this information without the specific, written, and informed release of the individual to whom it pertains, or as otherwise permitted by state law. A general authorization for the release of medical or other information is not sufficient for the purpose of the release of HIV test results or diagnoses. [facility] HIV1 HIV2 AGAB SCRNon 2023 HIV AG-AB SCREEN Non-Reactive Normal Non-Reactive [facility] Comment on above: Order Comment: HIV Information: ???[place] Rev. code 3701.243(E): This information has been disclosed to you from confidential records protected from disclosure by state law. ???You shall make no further disclosure of this information without the specific, written, and informed release of the individual to whom it pertains, or as otherwise permitted by state law. ???A general authorization for the release of medical or other information is not sufficient for the purpose of the release of HIV test results or diagnoses. Result Comment: No l aboratory evidence for HIV Infection. Negative result does not rule out acute HIV infection. If acute HIV infection is suspected, recommend ordering an HIV-1 RNA quanitification test. Performed By: #### h iv1 hiv2 agab scrn #### [facility] [address] [place] [address], LACTIC ACIDon 03-26-2024 CR LACT 3.5 mmol/L Critically high 0.5-1.6 [facility] Comment on above: Performed By: #### L ACT #### [facility] [address] [place] [address], LACTIC ACIDOrdered By: Mg Hooper on 03-26-2024 Interpretation and review of laboratory results Abnormal [facility] Lactate [Moles/Vol] 3.5 mmol/L Critically high 0.5 - 1.6 mmol/L [facility] - Blood bankon ABO and Rh group Nom (Bld) Blood group O Rh(D) positive [facility] MANUAL DIFF AND MORPHon CELLS COUNTED TOTAL # IN BLOOD Normal [facility] Comment on above: Performed By: #### C H8, ETOH #### S [facility] [address] [place] [address], HYPOCHROMASIA Marked Normal [facility] Comment on above: Performed By: #### C H8, ETOH #### [facility] [address] [place] [address], MICROCYTOSIS Slight Normal [facility] Comment on above: Performed By: #### C H8, ETOH #### [facility] [address] [place] [address], OVALOCYTES Few Normal [facility] Comment on above: Performed By: #### C H8, ETOH #### [facility] [address] [place] [address], Cells Counted Total (Bld) [#] [facility] Microcytes Ql (Bld) Slight [facility] Ovalocytes LM Ql (Bld) Few [facility] RBC.hypochromic/100 RBC Auto (Bld) Marked [facility] No Panel Informationon 03-26 [facility] Radiology Study observation (narrative) [facility] No Panel InformationOrdered By: Margareth Linder on 03-26-2024 [facility] PARTIAL THROMBOPLASTIN TIMEo n 03-26-2024 aPTT Coag (Bld) [Time] s Low 25-37 Th e [facility] Comment on above: Performed By: #### P T, APTT #### S [facility] [address] [place], [place], aPTT Coag (Bld) [Time] Low [facility] Interpretation and review of laboratory results Abnormal [facility] PROTHROMBIN TIME AND INRon 0 03-26-2024 INR Coag (PPP) [Relative time] 1.11 {INR} High 0.90-1.10 [facility] Comment on above: Performed By: #### P T, APTT #### [facility] [address] [place], [place], PT Coag (PPP) [Time] 12.4 s Normal 9.7-12.9 [facility] Comment on above: Performed By: #### P T, APTT #### [facility] [address] [place], [place], INR Coag (PPP) [Relative time] 1.11 {INR} High 0.90 - 1.10 [facility] Interpretation and review of laboratory results Abnormal [facility] PT Coag (PPP) [Time] 12.4 s [facility] Progress Noteson 03-26-2024 Talent Advisor Authentication Interface Message Text CAT 3 was upgraded to CAT 2, [facility] transported 43 year old male S/P metal pole through leg below the knee. EMS reports Pt was at work when a piece of metal went through his leg. EMS reports that the incident happened around 1pm and Pt called 911 after Pt took a shower several hours later. SW spoke with Pt good friend who was called 911. Pt friend Ene Castro [phone] says that Pt called her to let her known that he had an accident at work and she hurried up over to Pt house to check on him. Pt friend says that when she saw Pt he did not look well and was unable to speak and was complain of a headache. Pt friend says that Pt told her that he was at work when a metal piece his his leg. Pt friends does not know if employer is aware of incident. SW provided support. Plan: D/C unknown at this time Briseida Platt, MATERIAL CONTROL SUPERVISOR, CONTRACT PROCESSOR ED Social Work Normal [facility] TYPE AND SCREENon 03-26-2024 ABO and Rh group Nom (Bld) Blood group O Rh(D) positive [facility] ABO and Rh group Nom (Bld) No Previous Results [facility] Blood group antibody screen Ql Positive [facility] ABO and Rh group Nom (Bld) Blood group O Rh(D) positive Normal [facility] Comment on above: Performed By: #### A JANELLE JASSO AG PAT #### [facility] [address] [place] [address], ABO and Rh group Nom (Bld) No Previous Results Normal [facility] Comment on above: Performed By: #### A JANELLE JASSO AG PAT #### [facility] [address] [place] [address], ABSC INT Positive Normal [facility] Comment on above: Performed By: #### A JANELLE JASSO AG PAT #### [facility] [address] [place] [address], XR ANKLE RIGHT 3 VIEWSon XR ANKLE RIGHT 3 VIEWS EXAMINATION: XR ANKLE RIGHT 3 VIEWSPRO/RT 03/26/2024 06:44 PM CLINICAL HISTORY: fx ASSOCIATED DIAGNOSIS: ORDERING PROVIDER: CARMINA HENDERSON TECHNOLOGISTS NOTE: COMPARISON: None IMPRESSION: Please also refer to separate same day CT. 1. No radiographically apparent acute right ankle fracture/dislocatio n. 2. Ankle mortise/joint spaces relatively well-maintained. 3. No radiopaque foreign body. Right ankle MACRO: None Normal [facility] XR Ankle - right 3 Viewson 0 03-26-2024 EXAMINATION: XR ANKLE RIGHT 3 VIEWSPRO/RT 03/26/2024 06:44 PM CLINICAL HISTORY: fx ASSOCIATED DIAGNOSIS: ORDERING PROVIDER: DAVID NETTLESRA TECHNOLOGISTS NOTE: COMPARISON: None IMPRESSION: Please also refer to separate same day CT. 1. No radiographically apparent acute right ankle fracture/dislocatio n. 2. Ankle mortise/joint spaces relatively well-maintained. 3. No radiopaque foreign body. Right ankle MACRO: None RADIOLOGY Julio Cesar Simpson MD - 03/26/2024 EXAMINATION: XR ANKLE RIGHT 3 VIEWSPRO/RT 03/26/2024 06:44 PM CLINICAL HISTORY: fx ASSOCIATED DIAGNOSIS: ORDERING PROVIDER: DAVID HENDERSON TECHNLAUREN NOTE: COMPARISON: None IMPRESSION: Please also refer to separate same day CT. 1. No radiographically apparent acute right ankle fracture/dislocatio n. 2. Ankle mortise/joint spaces relatively well-maintained. 3. No radiopaque foreign body. Right ankle MACRO: None [facility] XR FEMUR RIGHT MINIMUM 2 VIE WSon 03-26-2024 XR FEMUR RIGHT MINIMUM 2 VIEWS EXAMINATION: XR FEMUR RIGHT MINIMUM 2 VIEWSPRO/RT 03/26/2024 06:44 PM CLINICAL HISTORY: fx ASSOCIATED DIAGNOSIS: ORDERING PROVIDER: CARMINA HENDERSON TECHNLAUREN NOTE: COMPARISON: None IMPRESSION: 1. No radiographically apparent acute right femur fracture/dislocatio n. 2. No abnormal radiopaque foreign body. Please also refer to same day CT Right femur MACRO: None Normal [facility] XR Femur - right 2 Viewson 0 03-26-2024 EXAMINATION: XR FEMUR RIGHT MINIMUM 2 VIEWSPRO/RT 03/26/2024 06:44 PM CLINICAL HISTORY: fx ASSOCIATED DIAGNOSIS: ORDERING PROVIDER: CARMINA HENDERSON TECHNLAUREN NOTE: COMPARISON: None IMPRESSION: 1. No radiographically apparent acute right femur fracture/dislocatio n. 2. No abnormal radiopaque foreign body. Please also refer to same day CT Right femur MACRO: None RADIOLOGY Julio Cesar Simpson MD - 03/26/2024 EXAMINATION: XR FEMUR RIGHT MINIMUM 2 VIEWSPRO/RT 03/26/2024 06:44 PM CLINICAL HISTORY: fx ASSOCIATED DIAGNOSIS: ORDERING PROVIDER: CARMINA HENDERSON TECHNLAUREN NOTE: COMPARISON: None IMPRESSION: 1. No radiographically apparent acute right femur fracture/dislocatio n. 2. No abnormal radiopaque foreign body. Please also refer to same day CT Right femur MACRO: None [facility] XR KNEE RT ANY 4 OR MORE VIE WSon 03-26-2024 XR KNEE RT ANY 4 OR MORE VIEWS EXAMINATION: XR KNEE RT ANY 4 OR MORE VIEWSPRO/RT 03/26/2024 06:44 PM CLINICAL HISTORY: fx ASSOCIATED DIAGNOSIS: ORDERING PROVIDER: CARMINA RIOS NOTE: COMPARISON: None FINDINGS: No acute fracture or dislocation is identified. No joint effusion is seen. The joint spaces are maintained. There is no abnormal radiopaque foreign body. IMPRESSION: No radiographically apparent acute right knee fracture or dislocation. Right knee MACRO: None Normal [facility] XR Knee - right Viewson EXAMINATION: XR KNEE RT ANY 4 OR MORE VIEWSPRO/RT 03/26/2024 06:44 PM CLINICAL HISTORY: fx ASSOCIATED DIAGNOSIS: ORDERING PROVIDER: CARMINA HENDERSON TECHNLAUREN NOTE: COMPARISON: None FINDINGS: No acute fracture or dislocation is identified. No joint effusion is seen. The joint spaces are maintained. There is no abnormal radiopaque foreign body. IMPRESSION: No radiographically apparent acute right knee fracture or dislocation. Right knee MACRO: None RADIOLOGY Julio Cesar Simpson MD - 03/26/2024 EXAMINATION: XR KNEE RT ANY 4 OR MORE VIEWSPRO/RT 03/26/2024 06:44 PM CLINICAL HISTORY: fx ASSOCIATED DIAGNOSIS: ORDERING PROVIDER: CARMINA HENDERSON TECHNLAUREN NOTE: COMPARISON: None FINDINGS: No acute fracture or dislocation is identified. No joint effusion is seen. The joint spaces are maintained. There is no abnormal radiopaque foreign body. IMPRESSION: No radiographically apparent acute right knee fracture or dislocation. Right knee MACRO: None [facility] XR TIBIA RIGHT 2 VIEWSon XR TIBIA RIGHT 2 VIEWS EXAMINATION: XR TIBIA RIGHT 2 VIEWSPRO/RT 03/26/2024 06:44 PM CLINICAL HISTORY: fx ASSOCIATED DIAGNOSIS: ORDERING PROVIDER: CARMINA HENDERSON TECHNLAUREN NOTE: COMPARISON: None IMPRESSION: 1. No radiographically apparent acute right tibia or fibula fracture/dislocatio n. 2. No radiopaque foreign bodies. Please also refer to same day CT Right tibia and fibula MACRO: None Normal [facility] XR Tibia and Fibula - right Viewson 03-26-2024 EXAMINATION: XR TIBIA RIGHT 2 VIEWSPRO/RT 03/26/2024 06:44 PM CLINICAL HISTORY: fx ASSOCIATED DIAGNOSIS: ORDERING PROVIDER: CARMINA RIOS NOTE: COMPARISON: None IMPRESSION: 1. No radiographically apparent acute right tibia or fibula fracture/dislocatio n. 2. No radiopaque foreign bodies. Please also refer to same day CT Right tibia and fibula MACRO: None RADIOLOGY Julio Cesar Simpson MD - 03/26/2024 EXAMINATION: XR TIBIA RIGHT 2 VIEWSPRO/RT 03/26/2024 06:44 PM CLINICAL HISTORY: fx ASSOCIATED DIAGNOSIS: ORDERING PROVIDER: CARMINA RIOS NOTE: COMPARISON: None IMPRESSION: 1. No radiographically apparent acute right tibia or fibula fracture/dislocatio n. 2. No radiopaque foreign bodies. Please also refer to same day CT Right tibia and fibula MACRO: None [employer] XR Tibia and Fibula - right ViewsOrdered By: Julio Cesar Simpson on 03-26-2024 [facility] Work Phone: CBC W Auto Differential pane l (Bld)on 12-11-2022 Basophils (Bld) [#/Vol] 0.06 10*3/uL Normal <0.11 [facility] Comment on above: Order Comment: Speci men Type: BLOOD SPECIMEN Ordering Facility: [facility] Address: [address] [place] [address] Performed By: #### 5 7021-8 #### [facility] CLIA [id number] [address] [place] [address] [place] Basophils/100 WBC (Bld) 1.3 % Normal [facility] Comment on above: Order Comment: Speci men Type: BLOOD SPECIMEN Ordering Facility: [facility] Address: [address] [place] [address] Performed By: #### 5 7021-8 #### [facility] CLIA [id number] [address] [place] [address] [place] Differential cell count method Nom (Bld) Auto Normal [facility] Comment on above: Order Comment: Speci men Type: BLOOD SPECIMEN Ordering Facility: [facility] Address: [address] [address] Performed By: #### 5 7021-8 #### [facility] CLIA [id number] [facility] [place] [address] [place] Eosinophils (Bld) [#/Vol] 0.21 10*3/uL Normal <0.46 [facility] Comment on above: Order Comment: Speci men Type: BLOOD SPECIMEN Ordering Facility: [facility] Address: [address] [address] Performed By: #### 5 7021-8 #### [facility] CLIA [id number] [address] [place] [address] [place] Eosinophils/100 WBC (Bld) 4.5 % Normal [facility] Comment on above: Order Comment: Speci men Type: BLOOD SPECIMEN Ordering Facility: [facility] Address: [address] [address] Performed By: #### 5 7021-8 #### [facility] [place] [id number] [address] [place] [address] [place] Erythrocyte distribution width (RBC) [Ratio] 18.9 % High 11.5-15.0 [facility] Comment on above: Order Comment: Speci men Type: BLOOD SPECIMEN Ordering Facility: [facility] Address: [address] Performed By: #### 5 7021-8 #### [facility] CLIA [id number] [address] [place] [address] [place] Hematocrit (Bld) [Volume fraction] 39.1 % Normal 39.0-51.0 [facility] Comment on above: Order Comment: Speci men Type: BLOOD SPECIMEN Ordering Facility: [facility] Address: [address] Performed By: #### 5 7021-8 #### [facility] CLIA [id number] [address] [place], [place] [address] [place] Hemoglobin (Bld) [Mass/Vol] 11.6 g/dL Low 13.0-17.0 [facility] Comment on above: Order Comment: Speci men Type: BLOOD SPECIMEN Ordering Facility: [facility] Address: [address] [place] [address] Performed By: #### 5 7021-8 #### [facility] CLIA [id number] [address] [place], [place] [address] [place] Immature granulocytes (Bld) [#/Vol] 10*3/uL Normal <0.10 [facility] Comment on above: Order Comment: Speci men Type: BLOOD SPECIMEN Ordering Facility: [facility] Address: [address] [place] [address] Performed By: #### 5 7021-8 #### [facility] IA [id number] [address] [place] [address] [place] Immature granulocytes/100 WBC (Bld) 0.2 % Normal [facility] Comment on above: Order Comment: Speci men Type: BLOOD SPECIMEN Ordering Facility: [facility] Address: [address] [place] [address] Performed By: #### 5 7021-8 #### [facility] IA [id number] [address] [place], [place] [address] [place] Lymphocytes (Bld) [#/Vol] 1.24 10*3/uL Normal 1.00-4.00 [facility] Comment on above: Order Comment: Speci men Type: BLOOD SPECIMEN Ordering Facility: [facility] Address: [address] [place], [place] [address] Performed By: #### 5 7021-8 #### [facility] CLIA [id number] [address] [place], [place] [address] [place] Lymphocytes/100 WBC (Bld) 26.7 % Normal [facility] Comment on above: Order Comment: Speci men Type: BLOOD SPECIMEN Ordering Facility: [facility] Address: [address] [address] Performed By: #### 5 7021-8 #### [facility] CLIA [id number] [address] [place] [address] [place] MCH (RBC) [Entitic mass] 22.3 pg Low 26.0-34.0 [facility] Comment on above: Order Comment: Speci men Type: BLOOD SPECIMEN Ordering Facility: [facility] Address: [address] Performed By: #### 5 7021-8 #### [facility] CLIA [id number] [address] [place] [address] [place] MCHC (RBC) [Mass/Vol] 29.7 g/dL Low 30.5-36.0 [facility] Comment on above: Order Comment: Speci men Type: BLOOD SPECIMEN Ordering Facility: [facility] Address: [address] [address] Performed By: #### 5 7021-8 #### [facility] IA [id number] [address] [place] [address] [place] MCV (RBC) [Entitic vol] 75.0 fL Low 80.0-100.0 [facility] Comment on above: Order Comment: Speci men Type: BLOOD SPECIMEN Ordering Facility: [facility] Address: [address] Performed By: #### 5 7021-8 #### [facility] CLIA [id number] [address] [place] [address] [place] Monocytes (Bld) [#/Vol] 0.47 10*3/uL Normal <0.87 [facility] Comment on above: Order Comment: Speci men Type: BLOOD SPECIMEN Ordering Facility: [facility] Address: [address] [place], [place] [address] Performed By: #### 5 7021-8 #### [facility] CLIA [id number] [address] [place] [address] [place] Monocytes/100 WBC (Bld) 10.1 % Normal [facility] Comment on above: Order Comment: Speci men Type: BLOOD SPECIMEN Ordering Facility: [facility] Address: [address] [place] [address] Performed By: #### 5 7021-8 #### [facility] CLIA [id number] [facility] [place] [address] [place] Neutrophils (Bld) [#/Vol] 2.65 10*3/uL Normal 1.45-7.50 [facility] Comment on above: Order Comment: Speci men Type: BLOOD SPECIMEN Ordering Facility: [facility] Address: [address] [place] [address] Performed By: #### 5 7021-8 #### [facility] IA [id number] [address] [place] [address] [place] Neutrophils/100 WBC (Bld) 57.2 % Normal [facility] Comment on above: Order Comment: Speci men Type: BLOOD SPECIMEN Ordering Facility: [facility] Address: [address] [place], [place] [address] Performed By: #### 5 7021-8 #### [facility] IA [id number] [address] [place], [place] [address] [place] Nucleated RBC (Bld) [#/Vol] 10*3/uL Normal <0.01 [facility] Comment on above: Order Comment: Speci men Type: BLOOD SPECIMEN Ordering Facility: [facility] Address: [address] [place], [place] [address] Performed By: #### 5 7021-8 #### [facility] CLIA [id number] [address] [place], [place] [address] [place] Nucleated RBC/100 WBC (Bld) [Ratio] 0.0 /100 WBC Normal [facility] Comment on above: Order Comment: Speci men Type: BLOOD SPECIMEN Ordering Facility: [facility] Address: [address] [place] [address] Performed By: #### 5 7021-8 #### [facility] CLIA [id number] [address] [place] [address] [place] Platelet mean volume (Bld) [Entitic vol] 10.7 fL Normal 9.0-12.7 [facility] Comment on above: Order Comment: Speci men Type: BLOOD SPECIMEN Ordering Facility: [facility] Address: [address] [place] [address] Performed By: #### 5 7021-8 #### [facility] CLIA [id number] [address] [place] [address] [place] Platelets (Bld) [#/Vol] 135 10*3/uL Low 150-400 [facility] Comment on above: Order Comment: Speci men Type: BLOOD SPECIMEN Ordering Facility: [facility] Address: [address] [place] [address] Result Comment: No c lot detected. Performed By: #### 5 7021-8 #### [facility] CLIA [id number] [address] [place] [address] [place] RBC (Bld) [#/Vol] 5.21 10*6/uL Normal 4.20-6.00 [facility] Comment on above: Order Comment: Speci men Type: BLOOD SPECIMEN Ordering Facility: [facility] Address: [address] [place] [address] Performed By: #### 5 7021-8 #### [facility] CLIA [id number] [address] [place] [address] [place] WBC (Bld) [#/Vol] 4.64 10*3/uL Normal 3.70-11.00 [facility] Comment on above: Order Comment: Speci men Type: BLOOD SPECIMEN Ordering Facility: [facility] Address: [address] [place] [address] Performed By: #### 5 7021-8 #### [facility] CLIA [id number] [address] [place] [address] Comprehensive metabolic 2000 panelon 12-11-2022 Albumin [Mass/Vol] 4.7 g/dL Normal 3.9-4.9 [facility] Comment on above: Order Comment: Speci men Type: BLOOD SPECIMEN Ordering Facility: [facility] Address: [address] [place] [address] Performed By: #### H STNT, 93807-9, #### [facility] CLIA [id number] [address] [place] [address] ALP [Catalytic activity/Vol] 73 U/L Normal 38-113 [facility] Comment on above: Order Comment: Speci men Type: BLOOD SPECIMEN Ordering Facility: [facility] Address: [address] [place] [address] Performed By: #### H STNT, 28147-7, #### [facility] IA [id number] [address] [place] [address] ALT [Catalytic activity/Vol] 16 U/L Normal 10-54 [facility] Comment on above: Order Comment: Speci men Type: BLOOD SPECIMEN Ordering Facility: [facility] Address: [address] [place], [place] [address] Performed By: #### H STNT, 24633-6, 73280-3 #### [facility] CLIA [id number] [address] [place], [place] [address] [facility] Anion gap [Moles/Vol] 8 mmol/L Low 9-18 [facility] Comment on above: Order Comment: Speci men Type: BLOOD SPECIMEN Ordering Facility: [facility] Address: [address] [place] [address] Performed By: #### H STNT, 42882-6, 62165-9 #### [facility] CLIA [id number] [address] [place] [address] [place] AST [Catalytic activity/Vol] 18 U/L Normal 14-40 [facility] Comment on above: Order Comment: Speci men Type: BLOOD SPECIMEN Ordering Facility: [facility] Address: [address] [place] [address] Performed By: #### H STNT, , #### [facility] CLIA [id number] [facility] [place] [address] [place] Bilirubin [Mass/Vol] 0.3 mg/dL Normal 0.2-1.3 [facility] Comment on above: Order Comment: Speci men Type: BLOOD SPECIMEN Ordering Facility: [facility] Address: [address] [place] [address] Performed By: #### H STNT, , #### [facility] CLIA [id number] [address] [place], [place] [address] [place] Calcium [Mass/Vol] 9.0 mg/dL Normal 8.5-10.2 [facility] Comment on above: Order Comment: Speci men Type: BLOOD SPECIMEN Ordering Facility: [facility] Address: [address] [place] [address] Performed By: #### H STNT, , #### [facility] CLIA [id number] [address] [place], [place] [address] [place] Chloride [Moles/Vol] 104 mmol/L Normal 97-105 [facility] Comment on above: Order Comment: Speci men Type: BLOOD SPECIMEN Ordering Facility: [facility] Address: [address] [place] [address] Performed By: #### H STNT, , #### [facility] CLIA [id number] [facility] [place] [address] [place] CO2 [Moles/Vol] 27 mmol/L Normal 22-30 [facility] Comment on above: Order Comment: Speci deanna Type: BLOOD SPECIMEN Ordering Facility: [facility] Address: [address] [id number] Performed By: #### H STNT, , #### [facility] CLIA [id number] [address] [place] [address] [place] Creatinine [Mass/Vol] 0.70 mg/dL Low 0.73-1.22 [facility] Comment on above: Order Comment: Speci men Type: BLOOD SPECIMEN Ordering Facility: [facility] Address: [address] [address] Performed By: #### H STNT, , #### [facility] CLIA [id number] [address] [place] [address] STATES [facility] ESTIMATED GLOMERULAR FILTRATION RATE 117 mL/min/1.73m??? Normal >=60 [facility] Comment on above: Order Comment: Speci men Type: BLOOD SPECIMEN Ordering Facility: [facility] Address: [address] Result Comment: Belen mated Glomerular Filtration Rate (eGFR) is calculated using the 2020 CKD-EPI creatinine equation. This equation utilizes serum creatinine, sex, and age as parameters. The creatinine assay has traceable calibration to isotope dilution-mass spectrometry. Refer to KDIGO guidelines for clinical interpretation. In patients with unstable renal function, e.g. those with acute kidney injury, the eGFR may not accurately reflect actual GFR. Performed By: #### H STNT, , #### [facility] CLIA [id number] [address] [place], [place] [address] [place] Glucose [Mass/Vol] 120 mg/dL High 74-99 [facility] Comment on above: Order Comment: Speci men Type: BLOOD SPECIMEN Ordering Facility: [facility] Address: [address] [id number] Result Comment: The [place] Diabetes Association (ADA) provides guidance for cutoff values for fasting glucose and random glucose. The ADA defines fasting as no caloric intake for at least 8 hours. Fasting plasma glucose results between 100 to 125 mg/dL indicate increased risk for diabetes (prediabetes). Fasting plasma glucose results greater than or equal to 126 mg/dL meet the criteria for diagnosis of diabetes. In the absence of unequivocal hyperglycemia, results should be confirmed by repeat testing. In a patient with classic symptoms of hyperglycemia or hyperglycemic crisis, random plasma glucose results greater than or equal to 200 mg/dL meet the criteria for diagnosis of diabetes. Reference: Standards of Medical Care in Diabetes 2016, [place] Diabetes Association. Diabetes Care. 2016.39(Suppl 1). Performed By: #### H STNT, , #### [facility] CLIA [id number] [address] [place] [address] [place] Potassium [Moles/Vol] 4.3 mmol/L Normal 3.7-5.1 [facility] Comment on above: Order Comment: Speci men Type: BLOOD SPECIMEN Ordering Facility: [facility] Address: [address] [place] [address] Performed By: #### H STNT, , #### [facility] IA [id number] [address] [place] [address] [place] Protein [Mass/Vol] 7.4 g/dL Normal 6.3-8.0 [facility] Comment on above: Order Comment: Speci men Type: BLOOD SPECIMEN Ordering Facility: [facility] Address: [address] [place] [address] Performed By: #### H STNT, , #### [facility] CLIA [id number] [address] [place], [place] [address] [place] Sodium [Moles/Vol] 139 mmol/L Normal 136-144 [facility] Comment on above: Order Comment: Speci men Type: BLOOD SPECIMEN Ordering Facility: [facility] Address: [address] [place] [address] Performed By: #### H STNT, 98290-6, 04823-3 #### [facility] CLIA [id number] [address] [place], [place] [address] [facility] Urea nitrogen [Mass/Vol] 9 mg/dL Normal 9-24 [facility] Comment on above: Order Comment: Speci men Type: BLOOD SPECIMEN Ordering Facility: [facility] Address: [place] [address] Performed By: #### H STNT, 09398-3, 90042-3 #### [facility] CLIA [id number] [facility] ECG COMPLETEon 12-11-2022 ECG COMPLETE Ventricular Rate : 67 BPM Atrial Rate : 66 BPM P-R Interval : 190 ms QRS Duration : 86 ms Q-T Interval : 390 ms QTC Calculation(Bazett) : 412 ms Calculated P Pawling : 30 degrees Calculated R Pawling : 35 degrees Calculated T Pawling : 34 degrees Sinus rhythm Probable left atrial enlargement ST elev, probable normal early repol pattern Borderline ECG No Stemi BILL @ 1138 Confirmed by MD KHAN ANDREW ([id number]), newspaper copy editor BRENT MEADE ([id number]) on 12/13/2022 10:32:30 AM NAME : DELVIN LLOYD PID : [id number] : 1980 Gender : Male Race : ORD : [id number] Procedure Date : Dec 11 2022 11:23:15 Edit Date : Dec 13 2022 10:32:34 Diagnosis: Sinus rhythm Probable left atrial enlargement ST elev, probable normal early repol pattern Borderline ECG No Stemi BILL @ 1138 Confirmed by MD KHAN ANDREW ([id number]), newspaper copy editor BRENT MEADE ([id number]) on 12/13/2022 10:32:30 AM Test Reason : Chest Pain Location : 502 : LUED IT2 Overread By : MD KHAN ANDREW Edited By : BRENT MEADE Referred By : , Acquired by : Layne FIELD [facility] ED NOTEon 12-11-2022 ED NOTE HNO ID: [id number] Author: Francisco Javier Patel RN Service: ? Author Type: Registered Nurse Type: ED Notes Filed: 12/11/2022 11:26 AM Note Text: Pt reports to the ED with co occipital headache that sometimes radiates to eyes and chest pain for past 2 weeks. Endorses periodical sob. Unsure aggravating factors. Has been taking ASA, APAP with min relief. Denies any recent falls, injuries [facility] ED PROV NOTEon 12-11-2022 ED PROV NOTE HNO ID: [id number] Author: Arcdaio Pabon PA-C Service: Emergency Medicine Author Type: Physician Glove Stitcher Type: ED Provider Notes Filed: 12/11/2022 1:35 PM Note Text: ED Provider Note Patient Name: Delvin Mcmanus : 1980 SERVICE DATE: 12/11/22 History Patient presents with: Head Pain CC: Headache, neck pain, shoulder pain The history is provided by the patient through computer video game designer. This is a 42 year old male who presents for evaluation of headache, neck pain, shoulder pain started about 1 to 2 weeks ago and has been waxing and waning since that time. He is unaware of any precipitant event or exposure. That he has been taking aspirin and Tylenol with some improvement in the pain. Exacerbated by position and movement. Denies any injuries Does endorse some intermittent dizziness, Denies any shortness of breath, fevers, chills, PAST MEDICAL HISTORY Diagnosis Date Iron deficiency anemia 2017 Obesity (BMI 30.0-34.9) 01/29/2017 Penile cancer (HCC) 01/10/2017 PAST SURGICAL HISTORY Procedure Laterality Date OTHER 02/01/2017 Partial penectomy w skin graft PAST SURGICAL HISTORY OF 2017 Circumcision FAMILY HISTORY Problem Relation Age of Onset Diabetes Father Social History Tobacco Use Smoking status: Never Smokeless tobacco: Never Vaping Use Vaping Use: Never used Substance and Sexual Activity Alcohol use: No Drug use: No Sexual activity: Not Currently ALLERGIES No Known Allergies Review of Systems Constitutional: Negative for chills, fatigue and fever. Respiratory: Negative for shortness of breath, wheezing and stridor. Cardiovascular: Positive for chest pain. Negative for palpitations and leg swelling. Gastrointestinal: Negative for abdominal pain, diarrhea, nausea and vomiting. Musculoskeletal: Positive for neck pain. Neurological: Positive for dizziness and headaches. Negative for weakness and light-headedness. All other systems reviewed and are negative. Physical Exam Vitals [12/11/22 1122] BP Pulse Temp Temp src Resp SpO2 Weight Height 148/97 78 36.8 ?C (98.3 ?F) Oral 18 98 % 99.8 kg (220 lb) -- Physical Exam Vitals and nursing note reviewed. Constitutional: General: He is not in acute distress. Appearance: He is well-developed. He is not diaphoretic. HENT: Head: Normocephalic and atraumatic. Right Ear: Tympanic membrane, ear canal and external ear normal. No middle ear effusion. No mastoid tenderness. Tympanic membrane is not erythematous. Left Ear: Tympanic membrane, ear canal and external ear normal. No middle ear effusion. No mastoid tenderness. Tympanic membrane is not erythematous. Nose: No congestion or rhinorrhea. Mouth/Throat: Comments: Normal-appearing tongue, no oral lesions noted. Uvula midline nonswollen. Tongue elevates and protrudes in midline. Eyes: General: Right eye: No discharge. Left eye: No discharge. Extraocular Movements: Extraocular movements intact. Right eye: Normal extraocular motion and no nystagmus. Left eye: Normal extraocular motion and no nystagmus. Conjunctiva/sclera: Conjunctivae normal. Pupils: Pupils are equal, round, and reactive to light. Pupils are equal. Comments: Extraocular meds are intact. Neck: Trachea: Trachea normal. No tracheal deviation. Comments: No midline or bony tenderness of the cervical spine. Does have left-sided trapezius tenderness and muscle spasm. No rash, warmth or erythema. Freely moving neck looking around the room. No nuchal rigidity. Cardiovascular: Rate and Rhythm: Normal rate and regular rhythm. Heart sounds: Normal heart sounds. No murmur heard. Pulmonary: Effort: Pulmonary effort is normal. No respiratory distress. Breath sounds: No stridor. No wheezing. Comments: Lungs are clear and equal bilaterally no diminished lung sounds, no wheezing or rales Chest: Comments: There are some tenderness to palpation of the trapezius to the pectoralis musculature. No rash, warmth, erythema Abdominal: Comments: Abdomen soft nontender no grimacing or guarding during exam. No CVA tenderness Musculoskeletal: General: No tenderness. Comments: No midline or bony tenderness of the cervical, thoracic, lumbar spine. There is left-sided trapezius tenderness to palpation. No warmth, erythema, rash or evidence of infection. Pelvis stable. No tense palpation of the hips. Calves are supple and nontender. Skin: Findings: No rash. Comments: No appreciable rash Neurological: Mental Status: He is alert and oriented to person, place, and time. Psychiatric: Behavior: Behavior normal. Thought Content: Thought content normal. Judgment: Judgment normal. Diagnostic Testing ED Labs Ordered and Reviewed CBC + DIFF - Abnormal; Notable for the following components: Result Value Ref Range Hemoglobin 11.6 (*) 13.0 - 17.0 g/dL MCV 75.0 (*) 80.0 - 100.0 fL MCH 22.3 (*) 26.0 - 34.0 pg (more content not included)... Normal [facility] HIGH SENSITIVITY TROPONIN To n 12-11-2022 HIGH SENSITIVITY TR <6 Normal <12 [facility] Comment on above: Order Comment: Dwayne huerta Type: BLOOD SPECIMEN Ordering Facility: [facility] Address: [address] [id number] Result Comment: When assessing risk for acute coronary syndromes: In patients undergoing blood draw greater than or equal to 2 hours from symptom onset, with history of very low to moderate risk and non-ischemic ECG, an initial hs-Troponin T less than 12 ng/L AND a 1 hour delta hs-Troponin T less than 3 ng/L should be considered very low risk for 30 day MACE. Performed By: #### [facility] #### [facility] CLIA [id number] [address] [place] [address] OF [facility] HIGH SENSITIVITY TR <6 Normal <12 [facility] Comment on above: Order Comment: Dwayne huerta Type: BLOOD SPECIMEN Ordering Facility: [facility] Address: [address] [place] [address] Result Comment: When assessing risk for acute coronary syndromes: In patients undergoing blood draw greater than or equal to 2 hours from symptom onset, with history of very low to moderate risk and non-ischemic ECG, an initial hs-Troponin T less than 12 ng/L AND a 1 hour delta hs-Troponin T less than 3 ng/L should be considered very low risk for 30 day MACE. Performed By: #### H STNT, [id number], #### [facility] CLIA [id number] [facility] [place] [id number] [facility] Magnesium SerPl-mCncon 12-11 Magnesium [Mass/Vol] 1.8 mg/dL Normal 1.7-2.3 [facility] Comment on above: Order Comment: Speci men Type: BLOOD SPECIMEN Ordering Facility: [facility] Address: [address] [place] [id number] Performed By: #### H STNT, [id number], #### [facility] CLIA [id number] [address] [place], [place] [id number] [facility] XR CHEST 2V FRONTAL/LATon XR CHEST 2V FRONTAL/LAT * * *Final Report* * * DATE OF EXAM: Dec 11 2022 11:58AM LUX [id number] - XR CHEST 2V FRONTAL/LAT / PROCEDURE REASON: Chest pain, nonspecific * * * * Physician Interpretation * * * * EXAMINATION: CHEST RADIOGRAPH (2 VIEW FRONTAL and LATERAL) CLINICAL HISTORY: Chest pain, nonspecific MQ: XC2_6 EXAM DATE/TIME: 12/11/2022 11:58 AM COMPARISON: No relevant prior studies available. RESULT: Lines, tubes, and devices: None. Lungs and pleura: No consolidation. No lung mass. No pleural effusion. No pneumothorax. Cardiomediastinal silhouette: Normal cardiomediastinal silhouette. Bones and soft tissues: Unremarkable. IMPRESSION: No acute radiographic abnormality. Preparer: PSCB Transcribe Date/Time: Dec 11 2022 12:21P Dictated by : HESHAM CHOU MD This examination was interpreted and the report reviewed and electronically signed by: HESHAM CHOU MD on Dec 11 2022 12:22PM EST [id number] Normal [facility] ED NOTEon 11-05-2022 ED NOTE HNO ID: [id number] Author: Marissa Aguilar RN Service: ? Author Type: Registered Nurse Type: ED Notes Filed: 11/05/2022 8:20 PM Note Text: Pt received written and verbal discharge instructions. Instructed pt to follow up with PCP or follow-up DR. Instructed to come back to Emergency Room if symptoms worsen. Pt verbalized understanding. [facility] ED NOTE HNO ID: [id number] Author: JESUS MANUEL Corrigan Service: ? Author Type: Clinical Children Counselor Type: ED Notes Filed: 11/05/2022 7:27 PM Note Text: Pt presents to ED for flu like symptoms x4days. Pt states he has had a fever for x2days. Pt states he took ibuprofen yesterday and today for the fever. [facility] ED PROV NOTEon 11-05-2022 ED PROV NOTE HNO ID: [id number] Author: Brie Ward PA-C Service: Emergency Medicine Author Type: Physician Glove Stitcher Type: ED Provider Notes Filed: 11/11/2022 9:45 AM Note Text: ED Provider Note Patient Name: Delvin Mcmanus : 1980 SERVICE DATE: 11/05/22 History Patient presents with: Flu Like Symptoms Nausea AND Vomiting Dizziness Sore Throat This is a 42-year-old male with past medical history of penile cancer (remission); presenting to the ED for acute cough, decreased appetite, nausea, sore throat, myalgias that began 4 days ago. Taking ibuprofen. Denies any sick contacts. Denies chest pain, shortness of breath, abdominal pain, vomiting, diarrhea, constipation, urinary symptoms. PAST MEDICAL HISTORY Diagnosis Date - Iron deficiency anemia 2017 - Obesity (BMI 30.0-34.9) 01/29/2017 - Penile cancer (HCC) 01/10/2017 PAST SURGICAL HISTORY Procedure Laterality Date - OTHER 02/01/2017 Partial penectomy w skin graft - PAST SURGICAL HISTORY OF 2017 Circumcision FAMILY HISTORY Problem Relation Age of Onset - Diabetes Father Social History Tobacco Use - Smoking status: Never - Smokeless tobacco: Never Vaping Use - Vaping Use: Never used Substance and Sexual Activity - Alcohol use: No - Drug use: No - Sexual activity: Not Currently ALLERGIES No Known Allergies Review of Systems Constitutional: Negative for fever. HENT: Positive for congestion and sore throat. Respiratory: Positive for cough. Cardiovascular: Negative for chest pain. Gastrointestinal: Positive for nausea. Negative for abdominal pain and vomiting. Genitourinary: Negative. Musculoskeletal: Negative. Skin: Negative. All other systems reviewed and are negative. Physical Exam Vitals [11/05/222] BP Pulse Temp Temp src Resp SpO2 Weight Height 156/91 85 36.6 ?C (97.9 ?F) Oral 18 98 % 99.8 kg (220 lb) 1.676 m (5' 6 ) Physical Exam Vitals and nursing note reviewed. Constitutional: General: He is not in acute distress. Appearance: Normal appearance. He is well-developed. He is not ill-appearing, toxic-appearing or diaphoretic. HENT: Head: Normocephalic and atraumatic. Right Ear: Tympanic membrane, ear canal and external ear normal. Left Ear: Tympanic membrane, ear canal and external ear normal. Nose: Nose normal. Mouth/Throat: Mouth: Mucous membranes are moist. Pharynx: Uvula midline. No pharyngeal swelling, oropharyngeal exudate, posterior oropharyngeal erythema or uvula swelling. Eyes: General: Right eye: No discharge. Left eye: No discharge. Conjunctiva/sclera: Conjunctivae normal. Pupils: Pupils are equal, round, and reactive to light. Cardiovascular: Rate and Rhythm: Normal rate and regular rhythm. Heart sounds: Normal heart sounds. No murmur heard. No gallop. Pulmonary: Effort: Pulmonary effort is normal. No respiratory distress. Breath sounds: Normal breath sounds. No stridor. No wheezing, rhonchi or rales. Abdominal: General: Bowel sounds are normal. There is no distension. Palpations: Abdomen is soft. There is no mass. Tenderness: There is no abdominal tenderness. There is no right CVA tenderness, left CVA tenderness, guarding or rebound. Musculoskeletal: General: No tenderness. Normal range of motion. Cervical back: Normal range of motion and neck supple. Skin: General: Skin is warm. Capillary Refill: Capillary refill takes less than 2 seconds. Neurological: General: No focal deficit present. Mental Status: He is alert and oriented to person, place, and time. Psychiatric: Mood and Affect: Mood normal. Behavior: Behavior normal. Thought Content: Thought content normal. Judgment: Judgment normal. Diagnostic Testing ED Labs Ordered and Reviewed - No data to display Procedures ED Course / Clinical Impression Clinical Impressions as of 11/11/22 0945 Influenza A H1N1 infection Acute cough COVID-19 test performed per [facility] policy for suspected COVID community exposure. MDM / Disposition / Plan Nursing notes have been reviewed. Medical records have been reviewed. The vital signs upon arrival are reviewed. This is a 42-year-old male with past medical history of penile cancer (remission); presenting to the ED for acute cough, decreased appetite, nausea, sore throat, myalgias that began 4 days ago. The patient and/or family -had the results of all tests and diagnosis explained to them -were given both verbal and written discharge instructions -were instructed of the importance of close follow-up -were told that close follow-up is essential for good health and good outcomes MDM The patient was DISCHARGED: Counseled patient regarding lab results AND suspected diagnosis AND need for follow-up. Discharged home with verbal and written instructions. They were instructed to return as needed for persistent or worsening symptoms or any new concerns. Condition at time o (more content not included)... Normal [facility] GROUP A STREPTOCOCCUS BY PCR on 11-05-2022 S. pyogenes DNA SHAHANA+probe Ql (Throat) Negative Normal Negative for Group A Streptococcus by PCR [facility] Comment on above: Order Comment: Speci men Type: SPECIMEN FROM THROAT Ordering Facility: [facility] Address: [address] [place] [address] Performed By: #### S TAPCR #### [facility] CLIA [id number] [address] [place] [address] [place] #### GASPCR #### [facility] CLIA [id number] [address] [place] RAPID GROUP A STREP RFLX TO PCRon 11-05-2022 S. pyogenes Ag Ql (Throat) Negative Normal Negative Group A Strep Screen [facility] Comment on above: Order Comment: Speci men Type: SPECIMEN FROM THROAT Ordering Facility: [facility] Address: [address] [place] [address] Performed By: #### S TAPCR #### [facility] CLIA [id number] [address] [place] [address] [place] #### GASPCR #### [facility] CLIA [id number] [address] [place] [address] [place] [id number] [facility] [place] CNOVon 01-06-2019 CNOV Office Visit (UROLMN) ---- DELVIN LLOYD ([id number]) 1980 [facility] Date Time Provider Department 01/06/19 9:45 AM AXEL ALEXANDER During your visit today, we recorded the following information about you: Temperature Pulse Blood pressure Weight 98.1 degrees 74/minute 142/84 95.3 kg Height 1.676 m Axel Alexander MD 01/06/2019 11:08 AM Signed HPI: 38 year old male with history of urinary retention 2/2 phimosis and 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 Last seen 09/04/18. He returns to clinic today for follow up and CT pelvis He has been doing well since his last visit. He mentions some slight discomfort in the left groin in the past few months. No new lumps/bumps in the groin. No other pain Voiding without difficulty. PAST MEDICAL HISTORY Diagnosis Date - Iron deficiency anemia 2017 - Obesity (BMI 30.0-34.9) 01/29/2017 - Penile cancer (HCC) 01/10/2017 PAST SURGICAL HISTORY Procedure Laterality Date - OTHER 02/01/2017 Partial penectomy w skin graft - PAST SURGICAL HISTORY OF 2017 Circumcision Social History Marital status: Single Spouse name: Years of education: Number of children: Social History Main Topics Smoking status: Never Smoker Smokeless tobacco: Never Used Alcohol use: No Drug use: No Sexual activity: Not Currently Current Outpatient Prescriptions on File Prior to Visit: naproxen (NAPROSYN) 500 mg tablet Take 1 tablet by mouth twice daily as needed (for pain). gabapentin (NEURONTIN) 300 mg capsule Take 300 mg by mouth three times daily. diphenhydrAMINE (ALLERGY) 25 mg tablet Take 25 mg by mouth every 6 hours as needed. IRON,CARB/VIT C/VIT B12/FOLIC (IRON 100 PLUS ORAL) Take 1 tablet by mouth once daily. ACETAMINOPHEN (TYLENOL EXTRA STRENGTH ORAL) Take 1 tablet by mouth as needed. No current facility-administer ed medications on file prior to visit. ROS: Constitutional: negative Gastrointestinal: negative Ce Valencia RN DATA/OR LABS TO BE REVIEWED: (Simple=1 data point; Complex= 2 or more) No results found for: PSA Creatinine (mg/dL) Date Value 02/03/2017 0.87 02/01/2017 0.66 02/01/2017 0.78 01/29/2017 0.77 12/15/2016 0.82 Creatinine (POCT) (mg/dL) Date Value 03/23/2017 0.8 No results found for: TESTOST PHYSICIAN NOTE OF PERSONAL INVOLVEMENT IN CARE: I have interviewed the patient and have confirmed and edited PFSH and ROS obtained by the RN. I have performed the Physical Examination, Assessment and Plan as noted below. 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 He continues to do well, notes minor discomfort left testicle but no other sx. Voiding without difficulty. PHYSICAL EXAM: BP 142/84 (BP Site: Left Arm, BP Position: Sitting, BP Cuff Size: Large Adult) Pulse 74 Temp 36.7 ?C (98.1 ?F) (Tympanic) Ht 167.6 cm (5' 6 ) Wt 95.3 kg (210 lb) BMI 33.89 kg/m? GENERAL: Wnl nutrition, no deformities, healthy appearing ABDOMEN: Soft, nontender, nondistended, no masses. GENITOURINARY: MALE EXAM: No palpable inguinal adenopathy on either side. No evidence of local recurrence, meatus patent. UA: neg PVR: 0 ASSESSMENT/PLAN: 1. History of penile cancer - ICD9: V10.49, ICD10: Z85.49 (primary diagnosis) Doing well, remains ANICETO, will check CT report when available and arrange follow-up. Questions were answered and patient agrees with plan. 2. Obesity (BMI 30.0-34.9) - ICD9: 278.00, ICD10: E66.9 Patient problem(s) are managed medically and do not require further evaluation at present Signature: Axel Alexander MD Referring Provider: AXEL ALEXANDER [[id number]] Allergies As of Date: 01/06/2019 (No Known Allergies) Date Reviewed: 01/06/2019 Reviewed by: Salvatore Mercedes Ma - Fully Assessed Primary Visit Diagnosis:History of penile cancer [Z85.49] Other Visit Diagnoses:Screening for genitourinary condition [Z13.89] Obesity (BMI 30.0-34.9) [E66.9] Order(s):UA CHEMSTRIP ONLY [SQUA] Order #: [id number] FUTURE UA CHEMSTRIP ONLY [SQUA] Order #: [id number]. #:[id number] Prescriptions as of 01/06/2019 Sig: TYLENOL EXTRA STRENGTH ORAL Take 1 tablet by mouth as nee* NAPROXEN 500 MG TABLET Take 1 tablet by mouth twice * GABAPENTIN 300 MG CAPSULE Take 300 mg by mouth three ti* DIPHENHYDRAMINE 25 MG TABLET Take 25 mg by mouth every 6 h* IRON 100 PLUS ORAL Take 1 tablet by mouth once d* Problem List As Of Date 01/06/2019 Noted Resolved Penile mass [N48.9] INVALID FOR*03/23/2017 Penile cancer (HCC) [C60.9] INVALID FOR* Microcytic hypochromic anemia [D50.9] INVALID FOR* Obesity (BMI 30.0-34.9) [E66.9] INVALID FOR* History of penile cancer [Z85.49] INVALID FOR* Obesity, Class II, BMI 35-39.9 [E66.9] INVALID FOR* Encounter Status:Closed by AXEL ALEXANDER MD on 01/06/19 Normal [facility] CT PELVIS W IVCONon 01-06-20 CT PELVIS W IVCON * * *Final Report* * * DATE OF EXAM: Jan 06 2019 9:11AM [facility] [place]EL[place] W IVCON / PROCEDURE REASON: Disorder of penis, unspecified * * * * Physician Interpretation * * * * EXAMINATION: CT PELVIS WITH IV CONTRAST CLINICAL HISTORY: 37 year old male with history of urinary retention 2/2 phimosis and 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 Last seen 05/06/18. TECHNIQUE: CT of the pelvis was performed using standard technique. Contrast: IV: 150 ml of Omnipaque 300 Oral: 900 ml of 50ML Omnipaque [address] Radiation dose: Integrated Dose-length product (DLP) for this visit = 244 mGy*cm. CT Dose Reduction Employed: Automated exposure control (AEC) COMPARISON: 01/30/2018 RESULT: GI tract: No dilation or wall thickening. Colonic diverticulosis without diverticulitis. Lymph nodes: Stable right external iliac lymph node (series 2 image 4) measuring 1.6 x 1.3 cm, previously measuring 1.5 x 1.3 cm. Stable subcentimeter iliac chain nodes. No inguinal adenopathy. Mesentery/Peritoneu m: No ascites or mass. Retroperitoneum: No mass. Vascular: Normal caliber abdominal aorta and iliac arteries. Pelvis: The bladder is incompletely distended. Bones/Soft Tissues: Degenerative changes. Small fat-containing left inguinal hernia. Partial sacralization of the left aspect of L5 vertebral level/transverse process. IMPRESSION: STABLE EXAMINATION SINCE 01/30/2018 WITH UNCHANGED MILDLY ENLARGED RIGHT EXTERNAL ILIAC NODE. NO INGUINAL LYMPHADENOPATHY. Preparer: SABRA Transcribe Date/Time: Jan 06 2019 9:58A Dictated by : CHRISTIANO SCHAEFFER MD This examination was interpreted and the report reviewed and electronically signed by: SOCORRO SCHMIDT MD on Jan 06 2019 11:54AM EST [id number] Normal [facility] PROGRESSon 01-06-2019 Protein mass conc HNO ID: [id number] Author: Axel Alexander Service: (none) Author Type: Physician Type: Progress Notes Filed: 01/06/2019 11:08 AM Note Text: HPI: 38 year old male with history of urinary retention 2/2 phimosis and 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 Last seen 09/04/18. He returns to clinic today for follow up and CT pelvis He has been doing well since his last visit. He mentions some slight discomfort in the left groin in the past few months. No new lumps/bumps in the groin. No other pain Voiding without difficulty. PAST MEDICAL HISTORY Diagnosis Date - Iron deficiency anemia 2017 - Obesity (BMI 30.0-34.9) 01/29/2017 - Penile cancer (HCC) 01/10/2017 PAST SURGICAL HISTORY Procedure Laterality Date - OTHER 02/01/2017 Partial penectomy w skin graft - PAST SURGICAL HISTORY OF 2017 Circumcision Social History Marital status: Single Spouse name: Years of education: Number of children: Social History Main Topics Smoking status: Never Smoker Smokeless tobacco: Never Used Alcohol use: No Drug use: No Sexual activity: Not Currently Current Outpatient Prescriptions on File Prior to Visit: naproxen (NAPROSYN) 500 mg tablet Take 1 tablet by mouth twice daily as needed (for pain). gabapentin (NEURONTIN) 300 mg capsule Take 300 mg by mouth three times daily. diphenhydrAMINE (ALLERGY) 25 mg tablet Take 25 mg by mouth every 6 hours as needed. IRON,CARB/VIT C/VIT B12/FOLIC (IRON 100 PLUS ORAL) Take 1 tablet by mouth once daily. ACETAMINOPHEN (TYLENOL EXTRA STRENGTH ORAL) Take 1 tablet by mouth as needed. No current facility-administer ed medications on file prior to visit. ROS: Constitutional: negative Gastrointestinal: negative Ce Valencia RN DATA/OR LABS TO BE REVIEWED: (Simple=1 data point; Complex= 2 or more) No results found for: PSA Creatinine (mg/dL) Date Value 02/03/2017 0.87 02/01/2017 0.66 02/01/2017 0.78 01/29/2017 0.77 12/15/2016 0.82 Creatinine (POCT) (mg/dL) Date Value 03/23/2017 0.8 No results found for: TESTOST PHYSICIAN NOTE OF PERSONAL INVOLVEMENT IN CARE: I have interviewed the patient and have confirmed and edited PFSH and ROS obtained by the RN. I have performed the Physical Examination, Assessment and Plan as noted below. 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 He continues to do well, notes minor discomfort left testicle but no other sx. Voiding without difficulty. PHYSICAL EXAM: BP 142/84 (BP Site: Left Arm, BP Position: Sitting, BP Cuff Size: Large Adult) Pulse 74 Temp 36.7 ?C (98.1 ?F) (Tympanic) Ht 167.6 cm (5' 6 ) Wt 95.3 kg (210 lb) BMI 33.89 kg/m? GENERAL: Wnl nutrition, no deformities, healthy appearing ABDOMEN: Soft, nontender, nondistended, no masses. GENITOURINARY: MALE EXAM: No palpable inguinal adenopathy on either side. No evidence of local recurrence, meatus patent. UA: neg PVR: 0 ASSESSMENT/PLAN: 1. History of penile cancer - ICD9: V10.49, ICD10: Z85.49 (primary diagnosis) Doing well, remains ANICETO, will check CT report when available and arrange follow-up. Questions were answered and patient agrees with plan. 2. Obesity (BMI 30.0-34.9) - ICD9: 278.00, ICD10: E66.9 Patient problem(s) are managed medically and do not require further evaluation at present Signature: Axel Alexander MD Normal [facility] Protein mass conc HNO ID: [id number] Author: Carlotta Omalley Service: (none) Author Type: (none) Type: Progress Notes Filed: 01/06/2019 9:12 AM Note Text: Radiology Service Progress Note PATIENT NAME: Delvin Mcmanus DATE OF SERVICE: January 06, 2019 TIME: 9:01 AM PATIENT IDENTITY VERIFICATION COMPLETED USING TWO (2) METHODS: Patient confirmed name verbally and ID band matches.. PATIENT GENDER DATA: Male PATIENT RELEVANT IMPLANT DATA REVIEWED: Yes RADIOLOGY DEPARTMENT: CT; Exam(s) Completed: Pelvis PERIPHERAL IV DATA: Site assessment: Clean,Dry and Intact, Site disposition Discontinued SIGNED BY: Carlotta Omalley January 06, 2019 9:01 AM [facility] Protein mass conc HNO ID: [id number] Author: Hesham (Rn) MATTHEW Samuels Service: Radiology Author Type: Registered Nurse Type: Progress Notes Filed: 01/06/2019 8:40 AM Note Text: Radiology Service Progress Note PATIENT NAME: Delvin Mcmanus DATE OF SERVICE: January 06, 2019 TIME: 8:40 AM PATIENT WEIGHT: 210 LBS PATIENT IDENTITY VERIFICATION COMPLETED USING TWO (2) METHODS: Patient confirmed name verbally and ID band matches.. PATIENT GENDER DATA: Male CONTRAST INDUCED NEPHROPATHY RISK FACTORS: Not applicable CREATININE: Creatinine Date Value Ref Range Status 02/03/2017 0.87 0.73 - 1.22 mg/dL Final 02/01/2017 0.66 (L) 0.73 - 1.22 mg/dL Final 02/01/2017 0.78 0.73 - 1.22 mg/dL Final Creatinine (POCT) Date Value Ref Range Status 03/23/2017 0.8 0.7 - 1.4 mg/dL Final Comment: Meter ID: [id number] Location: [facility] [address] [place] [address] Meter ID: [id number] eGFR-All Other Races Date Value Ref Range Status 02/03/2017 >60 . Final Comment: eGFR (Estimated GFR) Units of measure: mL/min/1.73 meters squared eGFR is derived from the reexpressed MDRD Study equation using the following parameters: serum creatinine, age, gender and race. The creatinine assay has been calibrated to be traceable to IDMS. An eGFR <60 mL/min/1.73m2 for >3 months is consistent with chronic kidney disease. Refer to KDOQI guidelines for clinical interpretation. In patients with unstable renal function, e.g. those with acute kidney injury, the eGFR may not accurately reflect actual GFR. eGFR- Date Value Ref Range Status 02/03/2017 >60 Final P.O.C.T. RESULTS: N/A January 06, 2019 TREATMENT: No Hydration needed. ALLERGIES: Reviewed and unchanged CONTRAST ALLERGY: NO. IV SITE: Ambulatory: A peripheral IV was started in the Right antecubital site with a Angio cath: 20 gauge. and A Saline lock was inserted per protocol IV SITE APPEARANCE: Clean,Dry and Intact SIGNED BY: Hesham Samuels RN January 06, 2019 8:40 AM Normal [facility] Urinalysison 01-06-2019 Bilirubin, Urine Negative Normal Negative [facility] Comment on above: Performed By: #### U A ####[address] [phone] Clarity Nom (U) Clear Normal Clear [facility] Comment on above: Performed By: #### U A ####[address] [phone] Color Nom (U) Yellow Normal Yellow [facility] Comment on above: Performed By: #### U A ####[address] [phone] Comments SEE COMMENT Normal [facility] Comment on above: Result Comment: Micr oscopic not warranted Performed By: #### U A ####[address] [phone] Glucose Ql (U) Negative Normal Negative [facility] Comment on above: Performed By: #### U A ####[place] [address] [address] [place] [phone] Hemoglobin/Blood,Ur Negative Normal Negative [facility] Comment on above: Performed By: #### U A ####[place] [address] [place] [place] [phone] Ketones Ql (U) Negative Normal Negative [facility] Comment on above: Performed By: #### U A ####[place] [address] [place] [place] [phone] Leukest Negative Normal Negative [facility] Comment on above: Performed By: #### U A ####[place] [address] [place] [place] [phone] Nitrite Ql (U) Negative Normal Negative [facility] Comment on above: Performed By: #### U A ####[place] [address] [address] [place] [phone] pH (Bld) 7.0 Normal 4.5-8.0 [facility] Comment on above: Performed By: #### U A ####[place] [phone] Protein mass conc (U) Negative Normal Negative [facility] Comment on above: Performed By: #### U A ####[place] [address] [place] [phone] Specific Isabella, Ur 1.035 High 1.005-1.030 [facility] Comment on above: Performed By: #### U A ####[place] [address] [place] [phone] Urine Shravan Comment SEE COMMENT Normal [facility] Comment on above: Result Comment: N/A Performed By: #### U A ####[facility] [place], [place] [phone] Urobilinogen Qn (U) Normal Normal Normal [facility] [place] [facility] Comment on above: Performed By: #### U A ####[facility] [place], [place] [phone] CNOVon 09-04-2018 CNOV Office Visit (UROLMN) ---- DELVIN LLOYD ([id number]) 1980 [facility] Date Time Provider Department 09/04/18 7:45 AM AXEL ALEXANDER During your visit today, we recorded the following information about you: Temperature Pulse Blood pressure Height 96.8 degrees 55/minute 129/77 1.676 m Axel Alexander MD 09/04/2018 9:37 AM Signed HPI: 37 year old male with history of urinary retention 2/2 phimosis and 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 Last seen 05/06/18. He returns to clinic today for follow up. He has been doing well. No pain. Voiding without difficulty. PAST MEDICAL HISTORY Diagnosis Date - Iron deficiency anemia 2017 - Obesity (BMI 30.0-34.9) 01/29/2017 - Penile cancer (HCC) 01/10/2017 PAST SURGICAL HISTORY Procedure Laterality Date - OTHER 02/01/2017 Partial penectomy w skin graft - PAST SURGICAL HISTORY OF 2017 Circumcision Social History Marital status: Single Spouse name: Years of education: Number of children: Social History Main Topics Smoking status: Never Smoker Smokeless tobacco: Never Used Alcohol use: No Drug use: No Sexual activity: Not Currently Current Outpatient Prescriptions on File Prior to Visit: naproxen (NAPROSYN) 500 mg tablet Take 1 tablet by mouth twice daily as needed (for pain). gabapentin (NEURONTIN) 300 mg capsule Take 300 mg by mouth three times daily. diphenhydrAMINE (ALLERGY) 25 mg tablet Take 25 mg by mouth every 6 hours as needed. IRON,CARB/VIT C/VIT B12/FOLIC (IRON 100 PLUS ORAL) Take 1 tablet by mouth once daily. ACETAMINOPHEN (TYLENOL EXTRA STRENGTH ORAL) Take 1 tablet by mouth as needed. No current facility-administer ed medications on file prior to visit. ROS: Constitutional: negative Gastrointestinal: negative Ce Valencia RN DATA/OR LABS TO BE REVIEWED: (Simple=1 data point; Complex= 2 or more) No results found for: PSA Creatinine (mg/dL) Date Value 02/03/2017 0.87 02/01/2017 0.66 02/01/2017 0.78 01/29/2017 0.77 12/15/2016 0.82 Creatinine (POCT) (mg/dL) Date Value 03/23/2017 0.8 No results found for: TESTOST PHYSICIAN NOTE OF PERSONAL INVOLVEMENT IN CARE: I have interviewed the patient and have confirmed and edited PFSH and ROS obtained by the RN. I have performed the Physical Examination, Assessment and Plan as noted below. 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 Last seen 05/06/18. He returns to clinic today for follow up, has been doing well. No pain. Voiding without difficulty. Disease Specificity: Acuity: Chronic Anatomic Site: Penis, Laterality: Not applicable Underlying Condition/Causal Agent: Primary Associated Conditions/Manifest ations: N/A PHYSICAL EXAM: BP 129/77 (BP Site: Left Arm, BP Position: Sitting, BP Cuff Size: Large Adult) Pulse (!) 55 Temp 36 ?C (96.8 ?F) (Tympanic) Ht 167.6 cm (5' 6 ) BMI 35.51 kg/m? GENERAL: Wnl nutrition, no deformities, healthy appearing ABDOMEN: Soft, nontender, nondistended, no palp inguinal adenopathy GENITOURINARY: MALE EXAM: No evidence of local recurrence, patent urethrostomy UA neg ASSESSMENT/PLAN: 1. History of penile cancer - ICD9: V10.49, ICD10: Z85.49 (primary diagnosis) ANICETO, RTC [address] pelvis, and if all ok can then forego further imaging and follow with PE q 6 months. Questions were answered and patient agrees with plan. 3. Obesity (BMI 30.0-34.9) - ICD9: 278.00, ICD10: E66.9 Patient problem(s) are managed medically and do not require further evaluation at present Signature: Axel Alexander MD Referring Provider: AXEL ALEXANDER [[id number]] Allergies As of Date: 09/04/2018 (No Known Allergies) Date Reviewed: 09/04/2018 Reviewed by: Axel Alexander - Fully Assessed Primary Visit Diagnosis:History of penile cancer [Z85.49] Other Visit Diagnoses:Screening for genitourinary condition [Z13.89] Obesity (BMI 30.0-34.9) [E66.9] Obesity, Class II, BMI 35-39.9 [E66.9] Disorder of penis, unspecified [N48.9] Order(s):UA CHEMSTRIP ONLY [SQUA] Order #: [id number] FUTURE UA CHEMSTRIP ONLY [SQUA] Order #: [id number]. #:[id number] CT PELVIS W IVCON [[id number]] Order #: [id number] FUTURE iv contrast (will be provided with radiology test)CT PELVIS W -Inject, intravenously, once for 1 dose.No IV access, insert saline lock prior to the beginning of sedation, infusion, injection of imaging exam. Discontinue saline lock post exam. If Pt. has a central line or IVAD, may access for administration according to line specific nursing protocol. Once exam is complete flush line and de-access according to line specific nursing protocol in the CT contrast administration guidelines link.Disp: 1 EachRfl: 0 enteric contrast (will be provided with radiology test)For CT PELVIS W IVCON order Administer, As Directed One Time Only, via Oral, Rectal, both Oral and Rectal, Enteric Tube, Stoma or Indwelling Catheter, Enteric Contrast as designated per enteric contrast guidelinesDisp: 1 EachRfl: 0 Prescriptions as of 09/04/2018 Sig: DIPHENHYDRAMINE 25 MG TABLET Take 25 mg by mouth every 6 h* TYLENOL EXTRA STRENGTH ORAL Take 1 tablet by mouth as nee* IV CONTRAST (RADIOLOGY PROCED* CT PELVIS W -Inject, intraven* ENTERIC CONTRAST (RADIOLOGY P* For CT PELVIS W IVCON order A* NAPROXEN 500 MG TABLET Take 1 tablet by mouth twice * GABAPENTIN 300 MG CAPSULE Take 300 mg by mouth three ti* IRON 100 PLUS ORAL Take 1 tablet by mouth once d* Problem List As Of Date 09/04/2018 Noted Resolved Penile mass [N48.9] INVALID FOR*03/23/2017 Penile cancer (HCC) [C60.9] INVALID FOR* Microcytic hypochromic anemia [D50.9] INVALID FOR* Obesity (BMI 30.0-34.9) [E66.9] INVALID FOR* History of penile cancer [Z85.49] INVALID FOR* Obesity, Class II, BMI 35-39.9 [E66.9] INVALID FOR* Prescriptions ordered this encounter Disp Refills Start End IV CONTRAST (RADIOLOGY PROCEDURE) 1 Ea* 0 09/04/2018 09/05/2018 Class: In Office Sig: CT PELVIS W -Inject, intravenously, once for 1 dose.No IV access, insert saline lock prior to the beginning of sedation, infusion, injection of imaging exam. Discontinue saline lock post exam. If Pt. has a central line or IVAD, may access for administration according to line specific nursing protocol. Once exam is complete flush line and de-access according to line specific nursing protocol in the CT contrast administration guidelines link. ENTERIC CONTRAST (RADIOLOGY PROCEDUR* 1 Ea* 0 09/04/2018 09/05/2018 Class: In Office Sig: For CT PELVIS W IVCON order Administer, As Directed One Time Only, via Oral, Rectal, both Oral and Rectal, Enteric Tube, Stoma or Indwelling Catheter, Enteric Contrast as designated per enteric contrast guidelines Disposition: Return in 4 months (on 01/05/2019) for Office visit and CT pelvis with contrast. Follow-up and Disposition History Recorded Encounter Status:Closed by AXEL ALEXANDER MD on 09/04/18 Normal [facility] PROGRESSon 09-04-2018 Protein mass conc HNO ID: [id number] Author: Axel Alexander Service: (none) Author Type: Physician Type: Progress Notes Filed: 09/04/2018 9:37 AM Note Text: HPI: 37 year old male with history of urinary retention 2/2 phimosis and 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 Last seen 05/06/18. He returns to clinic today for follow up. He has been doing well. No pain. Voiding without difficulty. PAST MEDICAL HISTORY Diagnosis Date - Iron deficiency anemia 2017 - Obesity (BMI 30.0-34.9) 01/29/2017 - Penile cancer (HCC) 01/10/2017 PAST SURGICAL HISTORY Procedure Laterality Date - OTHER 02/01/2017 Partial penectomy w skin graft - PAST SURGICAL HISTORY OF 2017 Circumcision Social History Marital status: Single Spouse name: Years of education: Number of children: Social History Main Topics Smoking status: Never Smoker Smokeless tobacco: Never Used Alcohol use: No Drug use: No Sexual activity: Not Currently Current Outpatient Prescriptions on File Prior to Visit: naproxen (NAPROSYN) 500 mg tablet Take 1 tablet by mouth twice daily as needed (for pain). gabapentin (NEURONTIN) 300 mg capsule Take 300 mg by mouth three times daily. diphenhydrAMINE (ALLERGY) 25 mg tablet Take 25 mg by mouth every 6 hours as needed. IRON,CARB/VIT C/VIT B12/FOLIC (IRON 100 PLUS ORAL) Take 1 tablet by mouth once daily. ACETAMINOPHEN (TYLENOL EXTRA STRENGTH ORAL) Take 1 tablet by mouth as needed. No current facility-administer ed medications on file prior to visit. ROS: Constitutional: negative Gastrointestinal: negative Ce Valencia RN DATA/OR LABS TO BE REVIEWED: (Simple=1 data point; Complex= 2 or more) No results found for: PSA Creatinine (mg/dL) Date Value 02/03/2017 0.87 02/01/2017 0.66 02/01/2017 0.78 01/29/2017 0.77 12/15/2016 0.82 Creatinine (POCT) (mg/dL) Date Value 03/23/2017 0.8 No results found for: TESTOST PHYSICIAN NOTE OF PERSONAL INVOLVEMENT IN CARE: I have interviewed the patient and have confirmed and edited PFSH and ROS obtained by the RN. I have performed the Physical Examination, Assessment and Plan as noted below. 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 Last seen 05/06/18. He returns to clinic today for follow up, has been doing well. No pain. Voiding without difficulty. Disease Specificity: Acuity: Chronic Anatomic Site: Penis, Laterality: Not applicable Underlying Condition/Causal Agent: Primary Associated Conditions/Manifest ations: N/A PHYSICAL EXAM: BP 129/77 (BP Site: Left Arm, BP Position: Sitting, BP Cuff Size: Large Adult) Pulse (!) 55 Temp 36 ?C (96.8 ?F) (Tympanic) Ht 167.6 cm (5' 6 ) BMI 35.51 kg/m? GENERAL: Wnl nutrition, no deformities, healthy appearing ABDOMEN: Soft, nontender, nondistended, no palp inguinal adenopathy GENITOURINARY: MALE EXAM: No evidence of local recurrence, patent urethrostomy UA neg ASSESSMENT/PLAN: 1. History of penile cancer - ICD9: V10.49, ICD10: Z85.49 (primary diagnosis) ANICETO, RTC [address] pelvis, and if all ok can then forego further imaging and follow with PE q 6 months. Questions were answered and patient agrees with plan. 3. Obesity (BMI 30.0-34.9) - ICD9: 278.00, ICD10: E66.9 Patient problem(s) are managed medically and do not require further evaluation at present Signature: Axel Alexander MD Normal [facility] Urinalysison 09-04-2018 Bilirubin, Urine Negative Normal Negative [facility] Comment on above: Performed By: #### U A ####[place] [address] [place] [address] [phone] Clarity Nom (U) Clear Normal Clear [facility] Comment on above: Performed By: #### U A ####[place] [address] [place] [address] [place] [phone] Color Nom (U) Yellow Normal Yellow [facility] Comment on above: Performed By: #### U A ####[place] [address] [place] [address] [place] [phone] Comments SEE COMMENT Normal [facility] Comment on above: Result Comment: Micr oscopic not warranted Performed By: #### U A ####[place] [address] [place] [address] [place] [phone] Glucose Ql (U) Negative Normal Negative [facility] Comment on above: Performed By: #### U A ####[place] [address] [place] [address] [place] [phone] Hemoglobin/Blood,Ur Negative Normal Negative [facility] [place] [facility] Comment on above: Performed By: #### U A ####[place] [address] [place] [address] [place] [phone] Ketones Ql (U) Negative Normal Negative [facility] Comment on above: Performed By: #### U A ####[facility] [place] [address] [place] [phone] Leukest Negative Normal Negative [facility] Comment on above: Performed By: #### U A ####[facility] [place] [address] [place] [phone] Nitrite Ql (U) Negative Normal Negative [facility] Comment on above: Performed By: #### U A ####[facility] [place], [place] [phone] pH (Bld) 6.0 Normal 4.5-8.0 [facility] Comment on above: Performed By: #### U A ####[address] [phone] Protein mass conc (U) Negative Normal Negative [facility] Comment on above: Performed By: #### U A ####[address] [phone] Specific Isabella, Ur 1.018 Normal 1.005-1.030 [facility] Comment on above: Performed By: #### U A ####[address] [phone] Urine Shravan Comment SEE COMMENT Normal [facility] Comment on above: Result Comment: N/A Performed By: #### U A ####[address] [phone] Urobilinogen Qn (U) Normal Normal Normal [facility] [place] [facility] Comment on above: Performed By: #### U A ####[facility] [place], [place] [phone] Мария 05-06-2018 CNOV Office Visit (UROLMN) ---- DELVIN LLOYD ([id number]) 1980 [facility] Date Time Provider Department 05/06/18 1:15 PM AXEL ALEXANDER URODANIEL During your visit today, we recorded the following information about you: Temperature Pulse Blood pressure 97.5 degrees 62/minute 124/80 Axel Alexander MD 05/06/2018 6:08 PM Signed HPI: 37yo M h/o urinary retention 2/2 phimosis and 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 Last seen 01/2018. Pt w/o complaints currently. Feels well. Denies lymphadenopathy, LUTS, hematuria, weight loss, fevers. PAST MEDICAL HISTORY Diagnosis Date - Iron deficiency anemia 2017 - Obesity (BMI 30.0-34.9) 01/29/2017 - Penile cancer (HCC) 01/10/2017 PAST SURGICAL HISTORY Procedure Laterality Date - OTHER 02/01/2017 Partial penectomy w skin graft - PAST SURGICAL HISTORY OF 2017 Circumcision Social History Marital status: Single Spouse name: Years of education: Number of children: Social History Main Topics Smoking status: Never Smoker Smokeless tobacco: Never Used Alcohol use: No Drug use: No Sexual activity: Not Currently Current Outpatient Prescriptions on File Prior to Visit: diphenhydrAMINE (ALLERGY) 25 mg tablet Take 25 mg by mouth every 6 hours as needed. IRON,CARB/VIT C/VIT B12/FOLIC (IRON 100 PLUS ORAL) Take 1 tablet by mouth once daily. ACETAMINOPHEN (TYLENOL EXTRA STRENGTH ORAL) Take 1 tablet by mouth as needed. gabapentin (NEURONTIN) 300 mg capsule Take 300 mg by mouth three times daily. No current facility-administer ed medications on file prior to visit. ROS: Constitutional: negative Gastrointestinal: negative PHYSICAL EXAM: BP 124/80 (BP Site: Left Arm, BP Position: Sitting, BP Cuff Size: Large Adult) Pulse 62 Temp 36.4 ?C (97.5 ?F) (Tympanic) GENERAL: Wnl nutrition, no deformities, healthy appearing ABDOMEN: Soft, nontender, nondistended, no masses. RLQ scar well healed EXTREMITIES: Extremities normal. No deformities, edema, clubbing or skin discoloration. GENITOURINARY: MALE EXAM: Well healed penis w/o mass or lesion. Testes normal No palpable inguinal adenopathy DATA/OR LABS TO BE REVIEWED: (Simple=1 data point; Complex= 2 or more) No results found for: PSA Creatinine (mg/dL) Date Value 02/03/2017 0.87 02/01/2017 0.66 02/01/2017 0.78 01/29/2017 0.77 12/15/2016 0.82 Creatinine (POCT) (mg/dL) Date Value 03/23/2017 0.8 No results found for: TESTOST A/P: 37yo M w/ [id number] penile cancer s/p partial penectomy 01/2018 w/ ANICETO 15 months post-op. Feeling well. Penis well-healed, no palpable inguinal adenopathy. Last CT 01/2018 stable w/o new findings. - F/u in 3 months Victoriano Gramajo MD Attending Note I evaluated the patient and personally participated in the anton components. I agree with the resident's findings and plan as documented and have discussed the case and management of the patient's care with the resident. Patient doing very well clinically - no voiding complaints UA negative On exam, there is no palpable inguinal adenopathy and no evidence of local recurrence. Urethral opening patent. ASSESSMENT/PLAN: 1. History of penile cancer - ICD9: V10.49, ICD10: Z85.49 (primary diagnosis) Clinically remains ANICETO, RTC 3-4 months for repeat exam. Questions were answered and patient agrees with plan. 2. Obesity (BMI 30.0-34.9) - ICD9: 278.00, ICD10: E66.9 Patient problem(s) are managed medically and do not require further evaluation at present Signature: Axel Alexander MD Date: 05/06/2018 Time: 6:04 PM Axel Alexander MD 05/06/2018 6:08 PM Signed z Referring Provider: AXEL ALEXANDER [[id number]] Allergies As of Date: 05/06/2018 (No Known Allergies) Date Reviewed: 05/06/2018 Reviewed by: Axel Alexander - Fully Assessed Primary Visit Diagnosis:History of penile cancer [Z85.49] Other Visit Diagnoses:Screening for genitourinary condition [Z13.89] Obesity (BMI 30.0-34.9) [E66.9] Order(s):UA CHEMSTRIP ONLY [SQUA] Order #: [id number] FUTURE UA CHEMSTRIP ONLY [SQUA] Order #: [id number]. #:[id number] Prescriptions as of 05/06/2018 Sig: DIPHENHYDRAMINE 25 MG TABLET Take 25 mg by mouth every 6 h* IRON 100 PLUS ORAL Take 1 tablet by mouth once d* TYLENOL EXTRA STRENGTH ORAL Take 1 tablet by mouth as nee* GABAPENTIN 300 MG CAPSULE Take 300 mg by mouth three ti* Problem List As Of Date 05/06/2018 Noted Resolved Penile mass [N48.9] INVALID FOR*03/23/2017 Penile cancer (HCC) [C60.9] INVALID FOR* Microcytic hypochromic anemia [D50.9] INVALID FOR* Obesity (BMI 30.0-34.9) [E66.9] INVALID FOR* History of penile cancer [Z85.49] INVALID FOR* Disposition: Return in 4 months (on 09/05/2018). 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 Last seen 01/2018. Pt w/o complaints currently. Feels well. Denies lymphadenopathy, LUTS, hematuria, weight loss, fevers. PAST MEDICAL HISTORY Diagnosis Date - Iron deficiency anemia 2017 - Obesity (BMI 30.0-34.9) 01/29/2017 - Penile cancer (HCC) 01/10/2017 PAST SURGICAL HISTORY Procedure Laterality Date - OTHER 02/01/2017 Partial penectomy w skin graft - PAST SURGICAL HISTORY OF 2017 Circumcision Social History Marital status: Single Spouse name: Years of education: Number of children: Social History Main Topics Smoking status: Never Smoker Smokeless tobacco: Never Used Alcohol use: No Drug use: No Sexual activity: Not Currently Current Outpatient Prescriptions on File Prior to Visit: diphenhydrAMINE (ALLERGY) 25 mg tablet Take 25 mg by mouth every 6 hours as needed. IRON,CARB/VIT C/VIT B12/FOLIC (IRON 100 PLUS ORAL) Take 1 tablet by mouth once daily. ACETAMINOPHEN (TYLENOL EXTRA STRENGTH ORAL) Take 1 tablet by mouth as needed. gabapentin (NEURONTIN) 300 mg capsule Take 300 mg by mouth three times daily. No current facility-administer ed medications on file prior to visit. ROS: Constitutional: negative Gastrointestinal: negative PHYSICAL EXAM: BP 124/80 (BP Site: Left Arm, BP Position: Sitting, BP Cuff Size: Large Adult) Pulse 62 Temp 36.4 ?C (97.5 ?F) (Tympanic) GENERAL: Wnl nutrition, no deformities, healthy appearing ABDOMEN: Soft, nontender, nondistended, no masses. RLQ scar well healed EXTREMITIES: Extremities normal. No deformities, edema, clubbing or skin discoloration. GENITOURINARY: MALE EXAM: Well healed penis w/o mass or lesion. Testes normal No palpable inguinal adenopathy DATA/OR LABS TO BE REVIEWED: (Simple=1 data point; Complex= 2 or more) No results found for: PSA Creatinine (mg/dL) Date Value 02/03/2017 0.87 02/01/2017 0.66 02/01/2017 0.78 01/29/2017 0.77 12/15/2016 0.82 Creatinine (POCT) (mg/dL) Date Value 03/23/2017 0.8 No results found for: TESTOST A/P: 37yo M w/ [id number] penile cancer s/p partial penectomy 01/2018 w/ ANICETO 15 months post-op. Feeling well. Penis well-healed, no palpable inguinal adenopathy. Last CT 01/2018 stable w/o new findings. - F/u in 3 months Victoriano Gramajo MD Attending Note I evaluated the patient and personally participated in the anton components. I agree with the resident's findings and plan as documented and have discussed the case and management of the patient's care with the resident. Patient doing very well clinically - no voiding complaints UA negative On exam, there is no palpable inguinal adenopathy and no evidence of local recurrence. Urethral opening patent. ASSESSMENT/PLAN: 1. History of penile cancer - ICD9: V10.49, ICD10: Z85.49 (primary diagnosis) Clinically remains ANICETO, RTC 3-4 months for repeat exam. Questions were answered and patient agrees with plan. 2. Obesity (BMI 30.0-34.9) - ICD9: 278.00, ICD10: E66.9 Patient problem(s) are managed medically and do not require further evaluation at present Signature: Axel Alexander MD Date: 05/06/2018 Time: 6:04 PM Normal [facility] Urinalysison 05-06-2018 Bilirubin, Urine Negative Normal [facility] Comment on above: Performed By: #### U A #### [facility] [address] [facility] [address], [place] [address] Clarity Nom (U) Clear Normal Clear [facility] Comment on above: Performed By: #### U A #### [facility] [address] [place], [place] [address] Color Nom (U) Yellow Normal Yellow [facility] Comment on above: Performed By: #### U A #### [facility] [address] [place], [place] [address] Comments SEE COMMENT Normal [facility] Comment on above: Result Comment: Micr oscopic not warranted Performed By: #### U A #### [facility] [address] [place], [place] [address] Glucose Ql (U) Negative Normal Negative [facility] Comment on above: Performed By: #### U A #### [facility] [address] [place], [place] [address] Hemoglobin/Blood,Ur Negative Normal Negative [facility] [place] [facility] Comment on above: Performed By: #### U A #### [place] [id number] [place] [phone] Ketones Ql (U) Negative Normal Negative [facility] Comment on above: Performed By: #### U A #### [place] [id number] [place] [address] Leukest Negative Normal Negative [facility] Comment on above: Performed By: #### U A #### [place] [address] Nitrite Ql (U) Negative Normal Negative [facility] Comment on above: Performed By: #### U A #### [place] [id number] [place] [phone] pH (Bld) 7.5 Normal 4.5-8.0 [facility] Comment on above: Performed By: #### U A #### [place] [id number] [place] [phone] Protein mass conc (U) Negative Normal Negative [facility] Comment on above: Performed By: #### U A #### [place] [id number] [place], [place] [address] Specific Isabella, Ur 1.013 Normal 1.005-1.030 [facility] Comment on above: Performed By: #### U A #### [place] [id number] [place], [place] [address] Urine Shravan Comment SEE COMMENT Normal [facility] Comment on above: Result Comment: N/A Performed By: #### U A #### [facility] [address] [place], [place] [address] Urobilinogen Qn (U) Normal Normal Normal [facility] [place] [facility] Comment on above: Performed By: #### U A #### [facility] [address] [place], [place] [address] CNOVon 01-30-2018 CNOV Office Visit (UROLMN) ---- DELVIN LLOYD ([id number]) 1980 M [place] Date Time Provider Department 01/30/18 10:45 AM AXEL ALEXANDER During your visit today, we recorded the following information about you: Temperature Pulse Blood pressure 97.3 degrees 67/minute 141/88 Axel Alexander MD 01/30/2018 11:14 AM Signed HPI: 37 year old male with history of urinary retention 2/2 phimosis, found to have invasive SCC of the penis. Now s/p partial penectomy in the form of total glansectomy with STSG from the abdomen on 02/01/17. CT pelvis 01/30/18: IMPRESSION: Stable exam compared to 06/13/2017, with a few small, unchanged pelvic lymph nodes. He returns to clinic today for follow up No pain, feeling well. Denies any lymphadenopathy Voiding without difficulty. PAST MEDICAL HISTORY Diagnosis Date - Iron deficiency anemia 2017 - Obesity (BMI 30.0-34.9) 01/29/2017 - Penile cancer (HCC) 01/10/2017 PAST SURGICAL HISTORY Procedure Laterality Date - OTHER 02/01/2017 Partial penectomy w skin graft - PAST SURGICAL HISTORY OF 2017 Circumcision Social History Marital status: Single Spouse name: Years of education: Number of children: Social History Main Topics Smoking status: Never Smoker Smokeless status: Never Used Alcohol use: No Drug use: No Sexual activity: Not Currently Current Outpatient Prescriptions on File Prior to Visit: diphenhydrAMINE (ALLERGY) 25 mg tablet Take 25 mg by mouth every 6 hours as needed. IRON,CARB/VIT C/VIT B12/FOLIC (IRON 100 PLUS ORAL) Take 1 tablet by mouth once daily. ACETAMINOPHEN (TYLENOL EXTRA STRENGTH ORAL) Take 1 tablet by mouth as needed. No current facility-administer ed medications on file prior to visit. ROS: Constitutional: negative Gastrointestinal: negative DATA/OR LABS TO BE REVIEWED: (Simple=1 data point; Complex= 2 or more) No results found for: PSA Creatinine (mg/dL) Date Value 02/03/2017 0.87 02/01/2017 0.66 02/01/2017 0.78 01/29/2017 0.77 12/15/2016 0.82 Creatinine (POCT) (mg/dL) Date Value 03/23/2017 0.8 No results found for: DINESH Valencia RN PHYSICIAN NOTE OF PERSONAL INVOLVEMENT IN CARE: I have interviewed the patient and have confirmed and edited PFSH and ROS obtained by the RN. I have performed the Physical Examination, Assessment and Plan as noted below. HPI: History of urinary retention 2/2 phimosis, found to have invasive SCC of the penis. Underwent partial penectomy in the form of total glansectomy with STSG from the abdomen on 02/01/17. Pathology well diff SCC invasive with pushing borders, cuniculatum variant, margins negative, no LVI or PNI. He has been ANICETO since that time. Returns today for follow-up. CT pelvis 01/30/18: IMPRESSION: Stable exam compared to 06/13/2017, with a few small, unchanged pelvic lymph nodes. No pain, feeling well, good activity level. Denies any lymphadenopathy Voiding without difficulty, no hematuria or dysuria. Disease Specificity: Acuity: Chronic Anatomic Site: Penis, Laterality: Not applicable Underlying Condition/Causal Agent: Primary Associated Conditions/Manifest ations: N/A PHYSICAL EXAM: BP 141/88 (BP Site: Left Arm, BP Position: Sitting, BP Cuff Size: Large Adult) Pulse 67 Temp 36.3 ?C (97.3 ?F) (Tympanic) GENERAL: Wnl nutrition, no deformities, healthy appearing ABDOMEN: Soft, nontender, nondistended, no masses, no palpable inguinal adenopathy GENITOURINARY: MALE EXAM: Penis healed, no evidence of local recurrence. Testicles normal. ASSESSMENT/PLAN: 1. Penile cancer (HCC) - ICD9: 187.4, ICD10: C60.9 (primary diagnosis) Remains ANICETO 1 year postop, RTC 3 months for repeat exam. Questions were answered and patient agrees with plan. Signature: Axel Alexander MD Referring Provider: AXEL ALEXANDER [[id number]] Allergies As of Date: 01/30/2018 (No Known Allergies) Date Reviewed: 01/30/2018 Reviewed by: Axel Alexander - Fully Assessed Primary Visit Diagnosis:Penile cancer (HCC) [C60.9] Other Visit Diagnosis:Screening for genitourinary condition [Z13.89] Order(s):UA CHEMSTRIP ONLY [SQUA] Order #: [id number] FUTURE UA CHEMSTRIP ONLY [SQUA] Order #: [id number]. #:[id number] Prescriptions as of 01/30/2018 Sig: GABAPENTIN 300 MG CAPSULE Take 300 mg by mouth three ti* DIPHENHYDRAMINE 25 MG TABLET Take 25 mg by mouth every 6 h* IRON 100 PLUS ORAL Take 1 tablet by mouth once d* TYLENOL EXTRA STRENGTH ORAL Take 1 tablet by mouth as nee* Medication notes this encounter GABAPENTIN 300 MG CAPSULE >> Salvatore Mercedes Ma 01/30/2018 10:20 AM >> SALVATORE MERCEDES MA SunJan 30, 2018 10:20 AM Received from: External Pharmacy Received Sig: TAKE 1 CAPSULE THREE TIMES DAILY Problem List As Of Date 01/30/2018 Noted Resolved Penile mass [N48.9] INVALID FOR*03/23/2017 Penile cancer (HCC) [C60.9] INVALID FOR* Microcytic hypochromic anemia [D50.9] INVALID FOR* Obesity (BMI 30.0-34.9) [E66.9] INVALID FOR* History of penile cancer [Z85.49] INVALID FOR* Disposition: Return in 3 months (on 05/02/2018). Follow-up and Disposition History Recorded Encounter Status:Closed by AXEL ALEXANDER MD on 01/30/18 Normal [facility] CT PELVIS W IVCONon 01-31-[address] PELVIS W IVCON * * *Final Report* * * DATE OF EXAM: Jan 30 2018 9:31AM [facility] [place] IVCON / PROCEDURE REASON: multiple diagnoses * * * * Physician Interpretation * * * * EXAMINATION: CT PELVIS WITH IV CONTRAST CLINICAL HISTORY: 37-year-old man with a history of urinary retention secondary to phimosis, found to have invasive SCC of the penis. Now status post partial penectomy in the form of total glansectomy with STSG from the abdomen on 02/01/17. TECHNIQUE: CT of the pelvis was performed using standard technique, scanning from just above the iliac crests to the symphysis pubis. Contrast: IV: 100 ml of Omnipaque 300 Oral: 850 ml of 50ML Omnipaque [address] Radiation dose: Integrated Dose-length product (DLP) for this visit = 772 mGy*cm. CT Dose Reduction Employed: Automated exposure control (AEC) COMPARISON: CT pelvis 06/13/2017 RESULT: GI tract: No dilation or wall thickening. Normal appendix. Lymph nodes: There are a few small/borderline enlarged pelvic lymph nodes, not significant changed compared to the prior exam; for example, a right external iliac lymph node measures 1.6 x 1.0 cm (series 3, image 44), previously 1.9 x 1.0 cm. Mesentery/Peritoneu m: No ascites or mass. Vasculature: No abdominal aortic or iliac artery aneurysm. Pelvis: No mass, ascites or fluid collection. The prostate is mildly enlarged. The bladder is incompletely distended. Bones/Soft Tissues: No significant finding. IMPRESSION: Stable exam compared to 06/13/2017, with a few small, unchanged pelvic lymph nodes. Preparer: PSCB Transcribe Date/Time: Jan 30 2018 9:45A Dictated by : LUNA MARQUEZ MD This examination was interpreted and the report reviewed and electronically signed by: LUNA MARQUEZ MD on Jan 30 2018 9:51AM EST [id number] Normal [facility] PROGRESSon 01-30-2018 Protein mass conc HNO ID: [id number] Author: Axel Alexander Service: (none) Author Type: Physician Type: Progress Notes Filed: 01/30/2018 11:14 AM Note Text: HPI: 37 year old male with history of urinary retention 2/2 phimosis, found to have invasive SCC of the penis. Now s/p partial penectomy in the form of total glansectomy with STSG from the abdomen on 02/01/17. CT pelvis 01/30/18: IMPRESSION: Stable exam compared to 06/13/2017, with a few small, unchanged pelvic lymph nodes. He returns to clinic today for follow up No pain, feeling well. Denies any lymphadenopathy Voiding without difficulty. PAST MEDICAL HISTORY Diagnosis Date - Iron deficiency anemia 2017 - Obesity (BMI 30.0-34.9) 01/29/2017 - Penile cancer (HCC) 01/10/2017 PAST SURGICAL HISTORY Procedure Laterality Date - OTHER 02/01/2017 Partial penectomy w skin graft - PAST SURGICAL HISTORY OF 2017 Circumcision Social History Marital status: Single Spouse name: Years of education: Number of children: Social History Main Topics Smoking status: Never Smoker Smokeless status: Never Used Alcohol use: No Drug use: No Sexual activity: Not Currently Current Outpatient Prescriptions on File Prior to Visit: diphenhydrAMINE (ALLERGY) 25 mg tablet Take 25 mg by mouth every 6 hours as needed. IRON,CARB/VIT C/VIT B12/FOLIC (IRON 100 PLUS ORAL) Take 1 tablet by mouth once daily. ACETAMINOPHEN (TYLENOL EXTRA STRENGTH ORAL) Take 1 tablet by mouth as needed. No current facility-administer ed medications on file prior to visit. ROS: Constitutional: negative Gastrointestinal: negative DATA/OR LABS TO BE REVIEWED: (Simple=1 data point; Complex= 2 or more) No results found for: PSA Creatinine (mg/dL) Date Value 02/03/2017 0.87 02/01/2017 0.66 02/01/2017 0.78 01/29/2017 0.77 12/15/2016 0.82 Creatinine (POCT) (mg/dL) Date Value 03/23/2017 0.8 No results found for: DINESH Valencia RN PHYSICIAN NOTE OF PERSONAL INVOLVEMENT IN CARE: I have interviewed the patient and have confirmed and edited PFSH and ROS obtained by the RN. I have performed the Physical Examination, Assessment and Plan as noted below. HPI: History of urinary retention 2/2 phimosis, found to have invasive SCC of the penis. Underwent partial penectomy in the form of total glansectomy with STSG from the abdomen on 02/01/17. Pathology well diff SCC invasive with pushing borders, cuniculatum variant, margins negative, no LVI or PNI. He has been ANICETO since that time. Returns today for follow-up. CT pelvis 01/30/18: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
--- OUTSIDE RECORDS SUMMARY | 2024-03-30 15:50 | XMS_ITS | CCD ---
Author Organization [facility] Care Team Providers Care Drilling Foreman Name Role Phone AXEL ALEXANDER Referring Unavailabl [...] gap [Moles/Vol] 15 mmol/L Normal 10-20 [facility] Comment on above: Performed By: #### C H8 #### [facility] [address] [place] [address], Calcium [Mass/Vol] 7.9 mg/dL Low 8.6-10.3 [facility] Comment on above: Performed By: #### C H8 #### [facility] [address] [place] [address], Chloride [Moles/Vol] 105 mmol/L Normal 98-107 The [facility] Comment on above: Performed By: #### C H8 #### [facility] [address] [place] [address], CO2 [Moles/Vol] 19 mmol/L Low 21-31 [facility] Comment on above: Performed By: #### C H8 #### [facility] [address] [place] [address], Creatinine [Mass/Vol] 0.80 mg/dL Normal 0.70-1.30 The [facility] Comment on above: Performed By: #### C H8 #### [facility] [address] [place] [address], ESTIMATED GFR (CKD-EPI) 112 mL/min/1.73sqm Normal >=60 [...] Inclusion of Race in Diagnosing Kidney Disease. [place] Journal of Kidney Diseases 2021;79(2):268-88.e1. 2. N Engl J Med 1 Vol. 385 Issue 19 Pages 9210-6147 Performed By: #### C H8 #### [facility] [address] [place] [address], Glucose [Mass/Vol] 235 mg/dL High 74-109 [facility] Comment on above: Performed By: #### C H8 #### [facility] [address] [place] [address], Potassium [Moles/Vol] 3.9 mmol/L Normal 3.5-5.0 [facility] Comment on above: Performed By: #### C H8 #### [facility] [address] [place] [address], Sodium [Moles/Vol] 135 mmol/L Low 136-145 The [facility] Comment on above: Performed By: #### C H8 #### [facility] [address] [place] [address], Urea nitrogen [Mass/Vol] 15 mg/dL Normal 7-25 [facility] Comment on above: Performed By: #### C H8 #### [facility] [address] [place] [address], Basic metabolic 2000 panelon 03-27-2024 Anion gap [Moles/Vol] 15 mmol/L 10 - 20 [facility] Calcium [Mass/Vol] 7.9 mg/dL Low 8.6 - 10. 3 mg/dL [facility] Chloride [Moles/Vol] 105 mmol/L 98 - 107 mmol/L [facility] CO2 [Moles/Vol] 19 mmol/L Low 21 - 31 mmol/L [facility] Creatinine [Mass/Vol] 0.80 mg/dL 0.70 - 1.30 mg/dL [facility] GFR/1.73 sq M.predicted CKD-EPI (S/P/Bld) [Vol rate/Area] 112 - PINF [facility] Comment on above: 2020 CKD EPI Equatio [...] Inclusion of Race in Diagnosing Kidney Disease. [place] Journal of Kidney Diseases 202;79(2):268-88.e1. 2. N Engl J Med 1 Vol. 385 Issue 19 Pages 8363-2350 Glucose [Mass/Vol] 235 mg/dL High 74 - 109 mg/dL [facility] Interpretation and review of laboratory results Abnormal [facility] Potassium [Moles/Vol] 3.9 mmol/L 3.5 - 5.0 mmol/L [facility] Sodium [Moles/Vol] 135 mmol/L Low 136 - 145 mmol/L [facility] Urea nitrogen [Mass/Vol] 15 mg/dL 7 - 25 mg/dL [facility] CBC WITH DIFFERENTIALon Basophils (Bld) [#/Vol] 0.06 10*3/uL Normal 0.00-0.20 The [facility] Comment on above: Performed By: #### h iv1 hiv2 agab scrn #### [facility] [address] [facility] [address] [place], [place], Basophils/100 WBC (Bld) 1.0 % Normal <=1.9 [facility] Comment on above: Performed By: #### h iv1 hiv2 agab scrn #### [facility] [address] [place] [address], Eosinophils (Bld) [#/Vol] 0.11 10*3/uL Normal 0.00-0.70 [facility] Comment on above: Performed By: #### h iv1 hiv2 agab scrn #### [facility] [address] [place] [address], Eosinophils/100 WBC (Bld) 2.1 % Normal 0.1-4.0 [facility] Comment on above: Performed By: #### h iv1 hiv2 agab scrn #### [facility] [address] [place] [address], Erythrocyte distribution width (RBC) [Ratio] 18.9 % High 11.5-14.5 [facility] Comment on above: Performed By: #### h iv1 hiv2 agab scrn #### [facility] [address] [place] [address], Hematocrit (Bld) [Volume fraction] 25.3 % Low 41.0-53.0 [facility] Comment on above: Performed By: #### h iv1 hiv2 agab scrn #### [facility] [address] [place] [address], Hemoglobin (Bld) [Mass/Vol] 7.4 g/dL Low 13.9-16.3 The [facility] Comment on above: Performed By: #### h iv1 hiv2 agab scrn #### [facility] [address] [place] [address], Lymphocytes (Bld) [#/Vol] 0.90 10*3/uL Low 1.00-4.80 [facility] Comment on above: Performed By: #### h iv1 hiv2 agab scrn #### [facility] [address] [place] [address], Lymphocytes/100 WBC (Bld) 16.6 % Low 24.0-44.0 [facility] Comment on above: Performed By: #### h iv1 hiv2 agab scrn #### [facility] [address] [place] [address], MCH (RBC) [Entitic mass] 20.6 pg Low 26.0-34.0 [facility] Comment on above: Performed By: #### h iv1 hiv2 agab scrn #### [facility] [address] [place] [address], MCHC (RBC) [Mass/Vol] 29.1 g/dL Low 32.0-35.9 [facility] Comment on above: Performed By: #### h iv1 hiv2 agab scrn #### [facility] [address] [place] [address], MCV (RBC) [Entitic vol] 71 fL Low 80-100 The [facility] Comment on above: Performed By: #### h iv1 hiv2 agab scrn #### [facility] [address] [place] [address], MONOCYTE DISTRIBUTION WIDTH 16 Normal <=20 The [facility] Comment on above: Performed By: #### h iv1 hiv2 agab scrn #### [facility] [address] [place] [address], Monocytes (Bld) [#/Vol] 0.44 10*3/uL Normal 0.20-1.00 The [facility] Comment on above: Performed By: #### h iv1 hiv2 agab scrn #### [facility] [address] [place] [address], Monocytes/100 WBC (Bld) 8.1 % Normal 2.0-11.0 The [facility] Comment on above: Performed By: #### h iv1 hiv2 agab scrn #### [facility] [address] [place] [address], Neutrophils (Bld) [#/Vol] 3.92 10*3/uL Normal 1.50-8.00 The [facility] Comment on above: Performed By: #### h iv1 hiv2 agab scrn #### [facility] [address] [place] [address], Neutrophils/100 WBC (Bld) 72.2 % Normal 31.0-76.0 [facility] Comment on above: Performed By: #### tressa iv1 hiv2 agab scrn #### [facility] [address] [place] [address], Platelet mean volume (Bld) [Entitic vol] 8.9 fL Normal 7.5-11.2 [facility] Comment on above: Performed By: #### h iv1 hiv2 agab scrn #### [facility] [address] [place] [address], Platelets (Bld) [#/Vol] 129 10*3/uL Low 150-400 [facility] Comment on above: Performed By: #### h iv1 hiv2 agab scrn #### [facility] [address] [place] [address], RBC (Bld) [#/Vol] 3.57 10*6/uL Low 4.50-5.90 [facility] Comment on above: Performed By: #### h iv1 hiv2 agab scrn #### [facility] [address] [place] [address], WBC (Bld) [#/Vol] 5.4 10*3/uL Normal 4.5-11.5 [facility] Comment on above: Performed By: #### tressa iv1 hiv2 agab scrn #### [facility] [address] [place] [address], Basophils (Bld) [#/Vol] 0.06 10*3/uL 0.00 - [...] right lower extremity. MACRO: None Normal [email or web address] ED Provider Noteson 03-27-20 Charge Poster Authentication Interface Message Text EMERGENCY DEPARTMENT - [...] [MS] ED Course User Index [MS] Thang Garlnad MD Medical Decision Making: Please see full [...] and precautions listed on the discharge paperwork. Thnag Garland MD PGY-3 Emergency Medicine ATTENDING NOTE I saw and evaluated the patient. I personally obtained the anton and critical portions of the history and physical exam. I reviewed the resident's documentation and discussed the patient with the resident. I agree with the resident's medical decision making as documented in the resident's note. Dago Simon MD Normal [email or web address] Charge Poster Authentication Interface Message Text SHIREEN 43M h/o [...] visit summary. Aj Aviles MD Normal [facility] HIGH SENSITIVITY TROPONIN Io n 03-27-2024 HS TROPONIN I 19 ng/L High <=15 [facility] Comment on above: Order Comment: High Sensitivity Cardiac Troponin I (hsTnI) assay has replaced the conventional troponin assay at [facility]. All results are reported in whole numbers representing ng/L. Repeat test times for ruling out acute coronary syndrome (ACS) are every 2 hours instead of every 6-8 hours. Dmrpt-xk-uecr conventional troponin (I-stat) will remain available in the [facility] [place] [facility] ??? results obtained by different labs [...] points). Performed By: #### H STRP #### [facility] [address] [place] [address], Troponin I.cardiac DL <= 0.01 ng/mL [Mass/Vol] 19 ng/L High NINF - 15 ng/L [facility] HS TROPONIN I 19 ng/L High <=15 [facility] Comment on above: Order Comment: HIV Information: ???[place] Rev. code 3701.243(E): This information has been [...] hiv2 agab scrn #### [facility] [address] [place] [address], Troponin I.cardiac DL <= 0.01 ng/mL [Mass/Vol] 19 ng/L High NINF - 15 ng/L [facility] Troponin I.cardiac DL <= 0.0 1 ng/mL [Mass/Vol]on 03-27-2024 Interpretation and review of laboratory results Abnormal [facility] High Sensitivity Cardiac Troponin I (hsTnI) assay has replaced the conventional troponin assay at [facility]. All results are reported in whole numbers representing ng/L. Repeat test times for ruling out acute coronary syndrome (ACS) are every 2 hours instead of every 6-8 hours. Vuznp-xc-wado conventional troponin (I-stat) will remain available in the [facility] [place] [facility] results obtained by different labs or [...] >45 ng/L = 2 points). [facility] Interpretation and review of laboratory results Abnormal [facility] High Sensitivity Cardiac Troponin I (hsTnI) assay has replaced the conventional troponin assay at [facility]. All results are reported in whole numbers representing ng/L. Repeat test times for ruling out acute coronary syndrome (ACS) are every 2 hours instead of every 6-8 hours. Pynzx-ky-kpdi conventional troponin (I-stat) will remain available in the [facility] ED results obtained by different labs or [...] >45 ng/L = 2 points). [facility] ABO RH TYPEon 03-26-2024 [facility] ABO and Rh group Nom (Bld) Blood group O Rh(D) positive Normal [facility] Comment on above: Performed By: #### h iv1 hiv2 agab scrn #### [facility] [address] [place] [address], [id number] ANTIBODY ID - LAB USE ONLYon 03-26-2024 Antibody Identification Anti-M [facility] Comment on above: In Gel. RUDY is nega tive. ABID Anti-M Normal The [facility] Comment on above: Result Comment: In G el. RUDY is negative. Performed By: #### A BID, TS, AG PAT #### [facility] [address] [place] [address], ANTIGEN TYPING PATIENTon M Ag Ql (RBC) Negative [facility] Patient Antigen Interp Completed [facility] M ANTIGEN (MONOCLONAL) Negative Normal e [facility] Comment on above: Performed By: #### h iv1 hiv2 agab scrn #### [facility] [address] [place] [address], PATIENT ANTIGEN INTERP Completed Normal e [facility] Comment on above: Performed By: #### h iv1 hiv2 agab scrn #### [facility] [address] [place] [address], BASIC METABOLIC PANELon Anion gap [Moles/Vol] 15 mmol/L Normal 10-20 The [facility] Comment on above: Performed By: #### C H8, ETOH #### [facility] [address] [place] [address], Calcium [Mass/Vol] 7.9 mg/dL Low 8.6-10.3 The [facility] Comment on above: Performed By: #### C H8, ETOH #### [facility] [address] [place] [address], Chloride [Moles/Vol] 108 mmol/L High 98-107 [facility] Comment on above: Performed By: #### C H8, ETOH #### [facility] [address] [place] [address], CO2 [Moles/Vol] 20 mmol/L Low 21-31 The [facility] Comment on above: Performed By: #### C H8, ETOH #### S [facility] [address] [place] [address], Creatinine [Mass/Vol] 1.03 mg/dL Normal 0.70-1.30 The [facility] Comment on above: Performed By: #### C H8, ETOH #### [facility] [address] [place] [address], ESTIMATED GFR (CKD-EPI) 92 mL/min/1.73sqm Normal >=60 [facility] Comment on above: Result Comment: 2020 [...] Inclusion of Race in Diagnosing Kidney Disease. [place] Journal of Kidney Diseases 2021;79(2):268-88.e1. 2. N Engl J Med 2020 Vol. 385 Issue 19 Pages 4923-0341 Performed By: #### C H8, ETOH #### [facility] [address] [place] [address], Glucose [Mass/Vol] 193 mg/dL High 74-109 [facility] Comment on above: Performed By: #### C H8, ETOH #### [facility] [address] [place] [address], Potassium [Moles/Vol] 3.6 mmol/L Normal 3.5-5.0 [facility] Comment on above: Performed By: #### C H8, ETOH #### [facility] [address] [place] [address], Sodium [Moles/Vol] 139 mmol/L Normal 136-145 [facility] Comment on above: Performed By: #### C H8, ETOH #### [facility] [address] [place] [address], Urea nitrogen [Mass/Vol] 18 mg/dL Normal 7-25 [facility] Comment on above: Performed By: #### C H8, ETOH #### [facility] [address] [place] [address], Basic metabolic 2000 panelon 03-26-2024 Anion gap [Moles/Vol] 15 mmol/L 10 - 20 [facility] Calcium [Mass/Vol] 7.9 mg/dL Low 8.6 - 10. 3 mg/dL [facility] Chloride [Moles/Vol] 108 mmol/L High 98 - 107 mmol/L [facility] CO2 [Moles/Vol] 20 mmol/L Low 21 - 31 mmol/L [facility] Creatinine [Mass/Vol] 1.03 mg/dL 0.70 - 1.30 mg/dL [facility] GFR/1.73 sq M.predicted CKD-EPI (S/P/Bld) [Vol rate/Area] 92 - PINF [facility] Comment on above: 2020 CKD EPI Equatio [...] Inclusion of Race in Diagnosing Kidney Disease. [place] Journal of Kidney Diseases 2021;79(2):268-88.e1. 2. N Engl J Med 2020 Vol. 385 Issue 19 Pages 9693-4002 Glucose [Mass/Vol] 193 mg/dL High 74 - 109 mg/dL [facility] Interpretation and review of laboratory results Abnormal [facility] Potassium [Moles/Vol] 3.6 mmol/L 3.5 - 5.0 mmol/L [facility] Sodium [Moles/Vol] 139 mmol/L 136 - 145 mmol/L [facility] Urea nitrogen [Mass/Vol] 18 mg/dL 7 - 25 mg/dL [facility] CBC WITH DIFFERENTIALon 05-0 Basophils (Bld) [#/Vol] 0.07 10*3/uL Normal 0.00-0.20 [facility] Comment on above: Performed By: #### C H8, ETOH #### S [facility] [address] [place] [address], Basophils/100 WBC (Bld) 1.4 % Normal <=1.9 [facility] Comment on above: Performed By: #### C H8, ETOH #### [facility] [address] [place] [address], Eosinophils (Bld) [#/Vol] 0.23 10*3/uL Normal 0.00-0.70 [facility] Comment on above: Performed By: #### C H8, ETOH #### [facility] [address] [place], [place], Eosinophils/100 WBC (Bld) 4.8 % High 0.1-4.0 [facility] Comment on above: Performed By: #### C H8, ETOH #### [facility] [address] [place] [address], Erythrocyte distribution width (RBC) [Ratio] 19.1 % High 11.5-14.5 [facility] Comment on above: Performed By: #### C H8, ETOH #### [facility] [address] [place] [address], Hematocrit (Bld) [Volume fraction] 26.0 % Low 41.0-53.0 [facility] Comment on above: Performed By: #### Pierre H8, ETOH #### [facility] [address] [place] [address], Hemoglobin (Bld) [Mass/Vol] 7.7 g/dL Low 13.9-16.3 [facility] Comment on above: Performed By: #### Pierre H8, ETOH #### [facility] [address] [place] [address], Lymphocytes (Bld) [#/Vol] 1.52 10*3/uL Normal 1.00-4.80 [facility] Comment on above: Performed By: #### C H8, ETOH #### [facility] [address] [place], [place], Lymphocytes/100 WBC (Bld) 31.4 % Normal 24.0-44.0 [facility] Comment on above: Performed By: #### C H8, ETOH #### [facility] [address] [place] [address], MCH (RBC) [Entitic mass] 21.1 pg Low 26.0-34.0 [facility] Comment on above: Performed By: #### C H8, ETOH #### [facility] [address] [place] [address], MCHC (RBC) [Mass/Vol] 29.4 g/dL Low 32.0-35.9 [facility] Comment on above: Performed By: #### C H8, ETOH #### S [facility] [address] [place], [place], MCV (RBC) [Entitic vol] 72 fL Low 80-100 [facility] Comment on above: Performed By: #### C H8, ETOH #### [facility] [address] [place], [place], MONOCYTE DISTRIBUTION WIDTH 15 Normal <=20 [facility] Comment on above: Performed By: #### C H8, ETOH #### [facility] [address] [place], [place], Monocytes (Bld) [#/Vol] 0.47 10*3/uL Normal 0.20-1.00 [facility] Comment on above: Performed By: #### C H8, ETOH #### [facility] [address] [place], [place], Monocytes/100 WBC (Bld) 9.7 % Normal 2.0-11.0 [facility] Comment on above: Performed By: #### C H8, ETOH #### [facility] [address] [place], [place], Neutrophils (Bld) [#/Vol] 2.56 10*3/uL Normal 1.50-8.00 [facility] Comment on above: Performed By: #### C H8, ETOH #### [facility] [address] [place], [place], Neutrophils/100 WBC (Bld) 52.7 % Normal 31.0-76.0 [facility] Comment on above: Performed By: #### C H8, ETOH #### [facility] [address] [place], [place], Platelet mean volume (Bld) [Entitic vol] 8.5 fL Normal 7.5-11.2 [facility] Comment on above: Performed By: #### C H8, ETOH #### [facility] [address] [place], [place], Platelets (Bld) [#/Vol] 142 10*3/uL Low 150-400 [facility] Comment on above: Performed By: #### C H8, ETOH #### S [facility] [address] [place], [place], RBC (Bld) [#/Vol] 3.63 10*6/uL Low 4.50-5.90 [facility] Comment on above: Performed By: #### C H8, ETOH #### S [facility] [address] [place], [place], WBC (Bld) [#/Vol] 4.9 10*3/uL Normal 4.5-11.5 [facility] Comment on above: Performed By: #### C H8, ETOH #### [facility] [address] [place], [place], CBC WITH DIFFERENTIALOrdered By: Margareth Linder [...] acute intracranial abnormality. MACRO: None Normal [facility] CT Head WO contrastOrdered B y: Rashad Godfrey on 03-26-2024 CT DLP 1325.7 (mGy.cm) [facility] Work Phone: CT Series Head [facility] Work Phone: CTDI VOL 67.5 (mGy) [facility] Work Phone: PHANTOM TYPE IEC Head Dosimetry Phantom [facility] Work Phone: [facility] Work Phone: CT Head WO contraston 2023 [...] IMPRESSION: No acute intracranial abnormality. MACRO: None [facility] Radiology Study observation (narrative) [facility] ED Noteson 03-26-2024 Charge Poster Authentication Interface Message Text Dr. BUSH notified of critical LACTATE value of 3.5. Hard copy of results given to Dr. BUSH. Normal [facility] Provider Noteson 03-26-20 Charge Poster Authentication Interface Message Text HISTORY OF PRESENT [...] at the ED. Interpretive services were used, instructor flying #[id number]. REVIEW OF SYSTEMS Review of Systems Constitutional: [...] al (more content not included)... Normal [facility] ED Triage Noteson 03-26-2024 Charge Poster Authentication Interface Message Text See EMS runsheet Normal [facility] ETHANOL, SERUMon 03-26-2024 Ethanol [Mass/Vol] mg/dL Normal None Detected [facility] Comment on above: Performed By: #### C H8, ETOH #### [facility] [address] [place] [address], [phone] Ethanol [Mass/Vol] mg/dL None Dete cted mg/dL [facility] Interpretation and review of laboratory results Normal [facility] H AND [place] 03-26-2024 Charge Poster Authentication Interface Message Text ---- Attestation signed [...] and Emergency General Surgery Department of Surgery [facility] [phone] ---- [facility] Department of Surgery Division of Trauma Surgery, Acute Care Surgery, Critical Care, and Bae TRAUMA SURGERY HISTORY AND PHYSICAL Delvin Dubon [phone] BASIC INJURY INFORMATION: Level of activation: Category 2 Trauma Mode of transport: Ambulance: EMS Mechanism of injury: Metal pole from leg Complicating features: [place] speaking, AMS Protective measures: Not applicable Date [...] use: No Living status: Home Primary language: Nicaraguan Functional status: Independent Impairments: Unknown Assistive Devices [...] RADIOLOG (more content not included)... Normal [facility] HIV 1 and 2 Ab and HIV 1 p24 Ag panel IAon 03-26-2024 HIV 1+2 Ab+HIV1 p24 Ag IA Ql Non-Reactive Non-Reactive [facility] Comment on above: No laboratory eviden ce for HIV Infection. Negative result does not rule out acute HIV infection. If acute HIV infection is suspected, recommend ordering an HIV-1 RNA quanitification test. Interpretation and review of laboratory results Normal [facility] HIV Information: [place] Rev. code 3701.243(E): This information has been [...] release of HIV test results or diagnoses. [facility] HIV1 HIV2 AGAB SCRNon 2023 HIV AG-AB SCREEN Non-Reactive Normal Non-Reactive [facility] Comment on above: Order Comment: HIV Information: ???[place] Rev. code 3701.243(E): This information has been [...] #### h iv1 hiv2 agab scrn #### [facility]ORY [address] [place] [address], LACTIC ACIDon 03-26-2024 CR LACT 3.5 mmol/L Critically high 0.5-1.6 [facility] Comment on above: Performed By: #### L ACT #### [facility] [address] [place] [address], LACTIC ACIDOrdered By: Mg Hooper on 03-26-2024 Interpretation and review of laboratory results Abnormal [facility] Lactate [Moles/Vol] 3.5 mmol/L Critically high 0.5 - 1.6 mmol/L [facility] Laboratory - Blood bankon ABO and Rh group Nom (Bld) Blood group O Rh(D) positive [facility] MANUAL DIFF AND MORPHon CELLS COUNTED TOTAL # IN BLOOD Normal [facility] Comment on above: Performed By: #### C H8, ETOH #### S PATHOLOGY LABORATORY [address] [place] [address], HYPOCHROMASIA Marked Normal [facility] Comment on above: Performed By: #### C H8, ETOH #### S PATHOLOGY LABORATORY [address] [place] [address], MICROCYTOSIS Slight Normal [facility] Comment on above: Performed By: #### C H8, ETOH #### S PATHOLOGY LABORATORY [address] [place] [address], OVALOCYTES Few Normal [facility] Comment on above: Performed By: #### C H8, ETOH #### S PATHOLOGY LABORATORY [address] [place] [address], Cells Counted Total (Bld) [#] [facility] Microcytes Ql (Bld) Slight [facility] Ovalocytes LM Ql (Bld) Few [facility] RBC.hypochromic/100 RBC Auto (Bld) Marked [facility] No Panel Informationon 03-26 [facility] Radiology Study observation (narrative) [facility] No Panel InformationOrdered By: Margareth Linder on 03-26-2024 [facility] PARTIAL THROMBOPLASTIN TIMEo n 03-26-2024 aPTT Coag (Bld) [Time] s Low 25-37 Th e [facility] Comment on above: Performed By: #### P T, APTT #### S PATHOLOGY LABORATORY [address] [place], [place], aPTT Coag (Bld) [Time] Low [facility] Interpretation and review of laboratory results Abnormal [facility] PROTHROMBIN TIME AND INRon 0 03-26-2024 INR Coag (PPP) [Relative time] 1.11 {INR} High 0.90-1.10 [facility] Comment on above: Performed By: #### P T, APTT #### [facility] [address] [place], [place], PT Coag (PPP) [Time] 12.4 s Normal 9.7-12.9 [facility] Comment on above: Performed By: #### P T, APTT #### [facility] [address] [place], [place], INR Coag (PPP) [Relative time] 1.11 {INR} High 0.90 - 1.10 [facility] Interpretation and review of laboratory results Abnormal [facility] PT Coag (PPP) [Time] 12.4 s [facility] Progress Noteson 03-26-2024 Charge Poster Authentication Interface Message Text CAT 3 was [...] was called 911. Pt friend Ene Castro [phone] says that Pt called her to let [...] D/C unknown at this time Briseida Platt, CRUISE STAFF MEMBER, BARREL LATHE OPERATOR ED Social Work Normal [facility] TYPE AND SCREENon 03-26-2024 ABO and Rh group Nom (Bld) Blood group O Rh(D) positive [facility] ABO and Rh group Nom (Bld) No Previous Results [facility] Blood group antibody screen Ql Positive [facility] ABO and Rh group Nom (Bld) Blood group O Rh(D) positive Normal [facility] Comment on above: Performed By: #### A JANELLE JASSO AG PAT #### [facility] [address] [place] [address], ABO and Rh group Nom (Bld) No Previous Results Normal [facility] Comment on above: Performed By: #### A JANELLE JASSO AG PAT #### [facility] [address] [place] [address], ABSC INT Positive Normal [facility] Comment on above: Performed By: #### A JANELLE JASSO AG PAT #### [facility] [address] [place] [address], XR ANKLE RIGHT 3 VIEWSon XR ANKLE [...] body. Right ankle MACRO: None Normal [facility] XR Ankle - right 3 Viewson [...] radiopaque foreign body. Right ankle MACRO: None [facility] XR FEMUR RIGHT MINIMUM 2 VIE WSon [...] CT Right femur MACRO: None Normal [facility] XR Femur - right 2 Viewson [...] dislocation. Right knee MACRO: None Normal [facility] XR Knee - right Viewson EXAMINATION: [...] tibia and fibula MACRO: None Normal [facility] XR Tibia and Fibula - right [...] CT Right tibia and fibula MACRO: None [facility] XR Tibia and Fibula - right ViewsOrdered By: Julio Cesar Simpson on 03-26-2024 [facility] Work Phone: CBC W Auto Differential pane l (Bld)on 12-11-2022 Basophils (Bld) [#/Vol] 0.06 10*3/uL Normal <0.[address] [facility] Comment on above: Order Comment: Speci men Type: BLOOD SPECIMEN Ordering Facility: [facility] Address: [address] [place] [address] Performed By: #### 5 7021-8 #### [facility] CLIA [id number] [address] [place] [address] [place] Basophils/100 WBC (Bld) 1.3 % Normal [facility] Comment on above: Order Comment: Speci men Type: BLOOD SPECIMEN Ordering Facility: [facility] Address: [address] [place] [address] Performed By: #### 5 7021-8 #### [facility] CLIA [id number] [address] [place] [address] [place] Differential cell count method Nom (Bld) Auto Normal [facility] Comment on above: Order Comment: Speci men Type: BLOOD SPECIMEN Ordering Facility: [facility] Address: [address] [address] Performed By: #### 5 7021-8 #### [facility] CLIA [id number] [facility] [place] [address] [place] Eosinophils (Bld) [#/Vol] 0.21 10*3/uL Normal <0.[address] [facility] Comment on above: Order Comment: Speci men Type: BLOOD SPECIMEN Ordering Facility: [facility] Address: [address] [address] Performed By: #### 5 7021-8 #### [facility] CLIA [id number] [address] [place] [address] [place] Eosinophils/100 WBC (Bld) 4.5 % Normal [facility] Comment on above: Order Comment: Speci men Type: BLOOD SPECIMEN Ordering Facility: [facility] Address: [address] [address] Performed By: #### 5 7021-8 #### [facility] IA [id number] [address] [place] [address] [place] Erythrocyte distribution width (RBC) [Ratio] 18.9 % High 11.5-15.[address] [facility] Comment on above: Order Comment: Speci men Type: BLOOD SPECIMEN Ordering Facility: [facility] Address: [address] Performed By: #### 5 7021-8 #### [facility] CLIA [id number] [address] [place] [address] [place] Hematocrit (Bld) [Volume fraction] 39.1 % Normal 39.0-51.[address] [facility] Comment on above: Order Comment: Speci men Type: BLOOD SPECIMEN Ordering Facility: [facility] Address: [address] Performed By: #### 5 7021-8 #### [facility] CLIA [id number] [address] [place], [place] [address] [place] Hemoglobin (Bld) [Mass/Vol] 11.6 g/dL Low 13.0-17.[address] [facility] Comment on above: Order Comment: Speci men Type: BLOOD SPECIMEN Ordering Facility: [facility] Address: [address] [place] [address] Performed By: #### 5 7021-8 #### [facility] CLIA [id number] [address] [place], [place] [address] [place] Immature granulocytes (Bld) [#/Vol] 10*3/uL Normal <0.[address] [facility] Comment on above: Order Comment: Speci men Type: BLOOD SPECIMEN Ordering Facility: [facility] Address: [address] [place] [address] Performed By: #### 5 7021-8 #### [facility] IA [id number] [address] [place] [address] [place] Immature granulocytes/100 WBC (Bld) 0.2 % Normal [facility] Comment on above: Order Comment: Speci men Type: BLOOD SPECIMEN Ordering Facility: [facility] Address: [address] [place] [address] Performed By: #### 5 7021-8 #### [facility] IA [id number] [address] [place], [place] [address] [place] Lymphocytes (Bld) [#/Vol] 1.24 10*3/uL Normal 1.00-4.[address] [facility] Comment on above: Order Comment: Speci men Type: BLOOD SPECIMEN Ordering Facility: [facility] Address: [address] [place], [place] [address] Performed By: #### 5 7021-8 #### [facility] CLIA [id number] [address] [place], [place] [address] [place] Lymphocytes/100 WBC (Bld) 26.7 % Normal [facility] Comment on above: Order Comment: Speci men Type: BLOOD SPECIMEN Ordering Facility: [facility] Address: [address] [address] Performed By: #### 5 7021-8 #### [facility] CLIA [id number] [address] [place] [address] [place] MCH (RBC) [Entitic mass] 22.3 pg Low 26.0-34.[address] [facility] Comment on above: Order Comment: Speci men Type: BLOOD SPECIMEN Ordering Facility: [facility] Address: [address] Performed By: #### 5 7021-8 #### [facility] CLIA [id number] [address] [place] [address] [place] MCHC (RBC) [Mass/Vol] 29.7 g/dL Low 30.5-36.0 [facility] Comment on above: Order Comment: Speci men Type: BLOOD SPECIMEN Ordering Facility: [facility] Address: [address] [address] Performed By: #### 5 7021-8 #### [facility] IA [id number] [address] [place] [address] [place] MCV (RBC) [Entitic vol] 75.0 fL Low 80.0-100.[address] [facility] Comment on above: Order Comment: Speci men Type: BLOOD SPECIMEN Ordering Facility: [facility] Address: [address] Performed By: #### 5 7021-8 #### [facility] CLIA [id number] [address] [place] [address] [place] Monocytes (Bld) [#/Vol] 0.47 10*3/uL Normal <0.[address] [facility] Comment on above: Order Comment: Speci men Type: BLOOD SPECIMEN Ordering Facility: [facility] Address: [address] [place], [place] [address] Performed By: #### 5 7021-8 #### [facility] CLIA [id number] [address] [place] [address] [place] Monocytes/100 WBC (Bld) 10.1 % Normal [facility] Comment on above: Order Comment: Speci men Type: BLOOD SPECIMEN Ordering Facility: [facility] Address: [address] [place] [address] Performed By: #### 5 7021-8 #### [facility] CLIA [id number] [facility] [place] [address] [place] Neutrophils (Bld) [#/Vol] 2.65 10*3/uL Normal 1.45-7.[address] [facility] Comment on above: Order Comment: Speci men Type: BLOOD SPECIMEN Ordering Facility: [facility] Address: [address] [place] [address] Performed By: #### 5 7021-8 #### [facility] IA [id number] [address] [place] [address] [place] Neutrophils/100 WBC (Bld) 57.2 % Normal [facility] Comment on above: Order Comment: Speci men Type: BLOOD SPECIMEN Ordering Facility: [facility] Address: [address] [place], [place] [address] Performed By: #### 5 7021-8 #### [facility] IA [id number] [address] [place], [place] [address] [place] Nucleated RBC (Bld) [#/Vol] 10*3/uL Normal <0.[address] [facility] Comment on above: Order Comment: Speci men Type: BLOOD SPECIMEN Ordering Facility: [facility] Address: [address] [place], [place] [address] Performed By: #### 5 7021-8 #### [facility] CLIA [id number] [address] [place], [place] [address] [place] Nucleated RBC/100 WBC (Bld) [Ratio] 0.0 /[address] [facility] Comment on above: Order Comment: Speci men Type: BLOOD SPECIMEN Ordering Facility: [facility] Address: [address] [place] [address] Performed By: #### 5 7021-8 #### [facility] CLIA [id number] [address] [place] [address] [place] Platelet mean volume (Bld) [Entitic vol] 10.7 fL Normal 9.0-12.[address] [facility] Comment on above: Order Comment: Speci men Type: BLOOD SPECIMEN Ordering Facility: [facility] Address: [address] [place] [address] Performed By: #### 5 7021-8 #### [facility] CLIA [id number] [address] [place] [address] [place] Platelets (Bld) [#/Vol] 135 10*3/uL Low 150-[address] [facility] Comment on above: Order Comment: Speci men Type: BLOOD SPECIMEN Ordering Facility: [facility] Address: [address] [place] [address] Result Comment: No c lot detected. Performed By: #### 5 7021-8 #### [facility] CLIA [id number] [address] [place] [address] [place] RBC (Bld) [#/Vol] 5.21 10*6/uL Normal 4.20-6.00 [facility] Comment on above: Order Comment: Speci men Type: BLOOD SPECIMEN Ordering Facility: [facility] Address: [address] [place] [address] Performed By: #### 5 7021-8 #### [facility] CLIA [id number] [address] [place] [address] [place] WBC (Bld) [#/Vol] 4.64 10*3/uL Normal 3.70-11.00 [facility] Comment on above: Order Comment: Speci men Type: BLOOD SPECIMEN Ordering Facility: [facility] Address: [address] [place] [address] Performed By: #### 5 7021-8 #### [facility] CLIA [id number] [address] [place] [address] Comprehensive metabolic 2000 panelon 12-11-2022 Albumin [Mass/Vol] 4.7 g/dL Normal 3.9-4.9 [facility] Comment on above: Order Comment: Speci men Type: BLOOD SPECIMEN Ordering Facility: [facility] Address: [address] [place] [address] Performed By: #### H STNT, 38559-9, #### [facility] CLIA [id number] [address] [place] [address] ALP [Catalytic activity/Vol] 73 U/L Normal 38-[address] [facility] Comment on above: Order Comment: Speci men Type: BLOOD SPECIMEN Ordering Facility: [facility] Address: [address] [place] [address] Performed By: #### H STNT, 69719-9, #### [facility] IA [id number] [address] [place] [address] ALT [Catalytic activity/Vol] 16 U/L Normal 10-[address] [facility] Comment on above: Order Comment: Speci men Type: BLOOD SPECIMEN Ordering Facility: [facility] Address: [address] [place], [place] [address] Performed By: #### H STNT, 13773-4, 85041-6 #### [facility] CLIA [id number] [address] [place], [place] [address] [facility] Anion gap [Moles/Vol] 8 mmol/L Low 9-18 [facility] Comment on above: Order Comment: Speci men Type: BLOOD SPECIMEN Ordering Facility: [facility] Address: [address] [place] [address] Performed By: #### H STNT, 62599-9, 06220-3 #### [facility] CLIA [id number] [address] [place] [address] [place] AST [Catalytic activity/Vol] 18 U/L Normal 14-[address] [facility] Comment on above: Order Comment: Speci men Type: BLOOD SPECIMEN Ordering Facility: [facility] Address: [address] [place] [address] Performed By: #### H STNT, , #### [facility] CLIA [id number] [facility] [place] [address] [place] Bilirubin [Mass/Vol] 0.3 mg/dL Normal 0.2-1.3 [facility] Comment on above: Order Comment: Speci men Type: BLOOD SPECIMEN Ordering Facility: [facility] Address: [address] [place] [address] Performed By: #### H STNT, , #### [facility] CLIA [id number] [address] [place], [place] [address] [place] Calcium [Mass/Vol] 9.0 mg/dL Normal 8.5-10.2 [facility] Comment on above: Order Comment: Speci men Type: BLOOD SPECIMEN Ordering Facility: [facility] Address: [address] [place] [address] Performed By: #### H STNT, , #### [facility] CLIA [id number] [address] [place], [place] [address] [place] Chloride [Moles/Vol] 104 mmol/L Normal 97-105 [facility] Comment on above: Order Comment: Speci men Type: BLOOD SPECIMEN Order[facility] Facility[facility] Address: [address] [place] [address] Performed By: #### H STNT, , #### [facility] CLIA [id number] [facility] [place] [id number] [place] CO2 [Moles/Vol] 27 mmol/L Normal 22-[address] [facility] Comment on above: Order Comment: Speci deanna Type: BLOOD SPECIMEN Ordering Facility: [facility] Address: [address] [id number] Performed By: #### H STNT, , #### [facility] CLIA [id number] [address] [place] [address] [place] Creatinine [Mass/Vol] 0.70 mg/dL Low 0.73-1.22 [facility] Comment on above: Order Comment: Speci men Type: BLOOD SPECIMEN Ordering Facility: [facility] Address: [address] [address] Performed By: #### H STNT, , #### [facility] CLIA [id number] [address] [place] [address] [facility] ESTIMATED GLOMERULAR FILTRATION RATE 117 mL/min/1.73m??? Normal >=[address] [facility] Comment on above: Order Comment: Speci men Type: BLOOD SPECIMEN Ordering Facility: [facility] Address: [address] Result Comment: Belen mated Glomerular Filtration [...] Performed By: #### H STNT, , #### [facility] CLIA [id number] [address] [place], [place] [address] [place] Glucose [Mass/Vol] 120 mg/dL High 74-99 [facility] Comment on above: Order Comment: Speci men Type: BLOOD SPECIMEN Order[facility] Facility[facility] Address: [address] [phone] Result Comment: The [place] [employer] (ADA) provides guidance for cutoff [...] Standards of Medical Care in Diabetes 2016, [place] [employer]. Diabetes Care. 2016.39(Suppl 1). Performed By: #### H STNT, , #### [facility] CLIA [id number] [address] [place] [address] [place] Potassium [Moles/Vol] 4.3 mmol/L Normal 3.7-5.1 [facility] Comment on above: Order Comment: Speci men Type: BLOOD SPECIMEN Ordering Facility: [facility] Address: [address] [place] [address] Performed By: #### H STNT, , #### [facility] IA [id number] [address] [place] [address] [place] Protein [Mass/Vol] 7.4 g/dL Normal 6.3-8.0 [facility] Comment on above: Order Comment: Speci men Type: BLOOD SPECIMEN Ordering Facility: [facility] Address: [address] [place] [address] Performed By: #### H STNT, , #### [facility] CLIA [id number] [address] [place], [place] [address] [place] Sodium [Moles/Vol] 139 mmol/L Normal 136-144 [facility] Comment on above: Order Comment: Speci men Type: BLOOD SPECIMEN Order[facility] Facility: [facility] Address: [address] [place] [address] Performed By: #### H STNT, 40057-8, 50658-1 #### [facility] CLIA [id number] [address] [place], [place] [address] [facility] Urea nitrogen [Mass/Vol] 9 mg/dL Normal 9-[address] [facility] Comment on above: Order Comment: Speci men Type: BLOOD SPECIMEN Order[facility] Facility[facility] Address: [place] [address] Performed By: #### H STNT, 12755-3, 03734-0 #### [facility] CLIA [id number] [facility] [address] ECG COMPLETEon 12-11-2022 ECG COMPLETE Ventricular Rate : 67 BPM Atrial Rate : 66 BPM P-R Interval : 190 ms QRS Duration : 86 ms Q-T Interval : 390 ms QTC Calculation(Bazett) : 412 ms Calculated P [place] : 30 degrees Calculated R [place] : 35 degrees Calculated T [place] : 34 degrees Sinus rhythm Probable left atrial enlargement ST elev, probable normal early repol pattern Borderline ECG No Stemi BILL @ 1138 Confirmed by MD KHAN ANDREW ([id number]), staff editor BRENT MEADE ([id number]) on 12/13/2022 10:32:30 AM NAME : DELVIN LLOYD PID : [id number] : 1980 Gender : Male Race : ORD : [id number] Procedure Date : Dec 11 2022 11:23:15 Edit Date : Dec 13 2022 10:32:34 Diagnosis: Sinus rhythm Probable left atrial enlargement ST elev, probable normal early repol pattern Borderline ECG No Stemi BILL @ 1138 Confirmed by MD KHAN ANDREW ([id number]), staff editor BRENT MEADE ([id number]) on 12/13/2022 10:32:30 AM Test Reason : Chest Pain Location : 502 : LUED IT2 Overread By : MD KHAN ANDREW Edited By : BRENT MEADE Referred By : , Acquired by : Layne FIELD [facility] ED NOTEon 12-11-2022 ED NOTE HNO ID: [id number] Author: Francisco Javier Patel RN Service: ? Author Type: Registered Nurse Type: ED Notes Filed: 12/11/2022 11:26 AM Note Text: Pt reports to the ED with co occipital headache that sometimes radiates to eyes and chest pain for past 2 weeks. Endorses periodical sob. Unsure aggravating factors. Has been taking ASA, APAP with min relief. Denies any recent falls, injuries [facility] ED PROV NOTEon 12-11-2022 ED PROV NOTE HNO ID: [id number] Author: Arcadio Pabon PA-C Service: Emergency Medicine Author Type: Physician Data Entry Assistant Type: ED Provider Notes Filed: 12/11/2022 1:35 PM Note Text: ED Provider Note Patient Name: Delvin Mcmanus : 1980 SERVICE DATE: 12/11/22 History Patient presents with: Head Pain CC: Headache, neck pain, shoulder pain The history is provided by the patient through straight ruling machine operator. This is a 42 year old male [...] 34.0 pg (more content not included)... Normal [facility] HIGH SENSITIVITY TROPONIN To n 12-11-2022 HIGH SENSITIVITY TR <6 Normal <12 [facility] Comment on above: Order Comment: Dwayne huerta Type: BLOOD SPECIMEN [facility] Address: [address] [id number] Result Comment: When assessing risk for acute [...] 30 day MACE. Performed By: #### [facility] #### [facility] CLIA [id number] [address] [place] [address] OF [facility] HIGH SENSITIVITY TR <6 Normal <12 [facility] Comment on above: Order Comment: Dwayne huerta Type: BLOOD SPECIMEN Order[facility] Facility[facility] Address: [address] [place] [address] Result Comment: When assessing risk for acute [...] day MACE. Performed By: #### H STNT, 405[address]-1, #### [facility] CLIA [id number] [facility] [place] [id number] [facility] Magnesium SerPl-mCncon 12-11 Magnesium [Mass/Vol] 1.8 mg/dL Normal 1.7-2.3 [facility] Comment on above: Order Comment: Speci men Type: BLOOD SPECIMEN Ordering Facility: [facility] Address: [address] [place] [phone] Performed By: #### H STNT, 72622-1, #### [facility] CLIA [id number] [address] [place], [place] [id number] [facility] XR CHEST 2V FRONTAL/LATon XR CHEST 2V [...] tissues: Unremarkable. IMPRESSION: No acute radiographic abnormality. Video Player Mechanic: PSCB Transcribe Date/Time: Dec 11 2022 12:21P Dictated by : HESHAM CHOU MD This examination was interpreted and the report reviewed and electronically signed by: HESHAM CHOU MD on Dec 11 2022 12:22PM EST [id number] Normal [facility] ED NOTEon 11-05-2022 ED NOTE HNO ID: [id number] Author: Marissa Aguilar RN Service: ? Author Type: Registered Nurse Type: ED Notes Filed: 11/05/2022 8:20 PM Note Text: Pt received written and verbal discharge instructions. Instructed pt to follow up with PCP or follow-up DR. Instructed to come back to Emergency Room if symptoms worsen. Pt verbalized understanding. [facility] ED NOTE HNO ID: [id number] Author: JESUS MANUEL Corrigan Service: ? Author Type: Clinical Air Dispatcher Type: ED Notes Filed: 11/05/2022 7:27 PM Note Text: Pt presents to ED for flu like symptoms x4days. Pt states he has had a fever for x2days. Pt states he took ibuprofen yesterday and today for the fever. [facility] ED PROV NOTEon 11-05-2022 ED PROV NOTE HNO ID: [id number] Author: Brie Ward PA-C Service: Emergency Medicine Author Type: Physician Data Entry Assistant Type: ED Provider Notes Filed: 11/11/2022 9:45 [...] infection Acute cough COVID-19 test performed per [facility] [place] policy for suspected COVID community exposure. MDM [...] time o (more content not included)... Normal [facility] GROUP A STREPTOCOCCUS BY PCR on 11-05-2022 S. pyogenes DNA SHAHANA+probe Ql (Throat) Negative Normal Negative for Group A Streptococcus by PCR [facility] Comment on above: Order Comment: Speci men Type: SPECIMEN FROM THROAT Ordering Facility: [facility] Address: [address] [address] Performed By: #### S TAPCR #### [facility] CLIA [id number] [address] [place] [address] [place] #### GASPCR #### [facility] CLIA [id number] [address] [place] RAPID GROUP A STREP RFLX TO PCRon 11-05-2022 S. pyogenes Ag Ql (Throat) Negative Normal Negative Group A Strep Screen [facility] Comment on above: Order Comment: Speci men Type: SPECIMEN FROM THROAT Ordering Facility: [facility] Address: [address] [address] Performed By: #### S TAPCR #### [facility] CLIA [id number] [address] [place] [address] [place] #### GASPCR #### [facility] CLIA [id number] [address] [place] [address] [place] [id number] [facility] [place] CNOVon 01-06-2019 CNOV Office Visit (UROLMN) ---- DELVIN LLOYD ([id number]) 1980 M [facility] Date Time Provider Department 01/06/19 9:45 [...] Axel Alexander MD Referring Provider: AXEL ALEXANDER [[id number]] Allergies As of Date: 01/06/2019 (No Known Allergies) Date Reviewed: 01/06/2019 Reviewed by: Salvatore Mercedes Ma - Fully Assessed 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 #:[id number] Prescriptions as of 01/06/2019 Sig: TYLENOL EXTRA [...] by AXEL ALEXANDER MD on 01/06/[address] [facility] CT PELVIS W IVCONon 01-06-20 CT PELVIS W IVCON * * *Final Report* * * DATE OF EXAM: Jan 06 2019 9:11AM [facility] [place] PELVIS W IVCON / [...] RIGHT EXTERNAL ILIAC NODE. NO INGUINAL LYMPHADENOPATHY. Video Player Mechanic: SABRA Transcribe Date/Time: Jan 06 2019 9:58A Dictated by : CHRISTIANO SCHAEFFER MD This examination was interpreted and the report reviewed and electronically signed by: SOCORRO SCHMIDT MD on Jan 06 2019 11:54AM EST [id number] Normal [facility] PROGRESSon 01-06-2019 Protein mass conc HNO ID: [id number] Author: Axel Alexander Service: (none) Author Type: [...] at present Signature: Axel Alexander MD Normal [facility] Protein mass conc HNO ID: [id number] Author: Carlotta Omalley Service: (none) Author Type: [...] Carlotta Omalley January 06, 2019 9:01 AM [facility] Protein mass conc HNO ID: [id number] Author: Hesham (Rn) MATTHEW Samuels Service: Radiology [...] - 1.4 mg/dL Final Comment: Meter ID: [id number] Location: [facility] Radiology [address] [place] [address] Meter ID: [id number] eGFR-All Other Races Date Value Ref Range [...] RN January 06, 2019 8:40 AM Normal [facility] Urinalysison 01-06-2019 Bilirubin, Urine Negative Normal [facility] Comment on above: Performed By: #### U A ####[address] [phone] Clarity Nom (U) Clear Normal Clear [facility] Comment on above: Performed By: #### U A ####[address] [phone] Color Nom (U) Yellow Normal Yellow [facility] Comment on above: Performed By: #### U A ####[address] [phone] Comments SEE COMMENT Normal [facility] Comment on above: Result Comment: Micr oscopic not warranted Performed By: #### U A ####[address] [phone] Glucose Ql (U) Negative Normal Negative [facility] Comment on above: Performed By: #### U A ####[place] [address] [place] [address] [place] [phone] Hemoglobin/Blood,Ur Negative Normal Negative [facility] Comment on above: Performed By: #### U A ####[place] [address] [place] [phone] Ketones Ql (U) Negative Normal Negative [facility] Comment on above: Performed By: #### U A ####[place] [address] [place] [phone] Leukest Negative Normal Negative [facility] Comment on above: Performed By: #### U A ####[place] [address] [place] [phone] Nitrite Ql (U) Negative Normal Negative [facility] Comment on above: Performed By: #### U A ####[place] [address] [place] [phone] pH (Bld) 7.0 Normal 4.5-8.[address] [facility] Comment on above: Performed By: #### U A ####[place] [phone] Protein mass conc (U) Negative Normal Negative [facility] Comment on above: Performed By: #### U A ####[place] [address] [place] [phone] Specific [place], Ur 1.035 High 1.005-1.030 [facility] Comment on above: Performed By: #### U A ####[place] [address] [place] [phone] Urine Shravan Comment SEE COMMENT Normal [facility] Comment on above: Result Comment: N/A Performed By: #### U A ####[facility] [place], [place] [phone] Urobilinogen Qn (U) Normal Normal Normal [facility] Comment on above: Performed By: #### U A ####[facility] [place], [place] [phone] CNOVon 09-04-2018 CNOV Office Visit (UROLMN) ---- DELVIN LLOYD ([id number]) 1980 M [facility] Date Time Provider Department 09/04/18 7:45 [...] Axel Alexander MD Referring Provider: AXEL ALEXANDER [[id number]] Allergies As of Date: 09/04/2018 (No Known Allergies) Date Reviewed: 09/04/2018 Reviewed by: Axel Alexander - Fully Assessed 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 #:[id number] CT PELVIS W IVCON [[id number]] Order #: [id number] FUTURE iv contrast (will be provided with [...] by AXEL ALEXANDER MD on 09/04/[address] [facility] PROGRESSon 09-04-2018 Protein mass conc HNO ID: [id number] Author: Axel Alexander Service: (none) Author Type: [...] at present Signature: Axel Alexander MD Normal [facility] Urinalysison 09-04-2018 Bilirubin, Urine Negative Normal Negative [facility] Comment on above: Performed By: #### U A ####[place] [address] [place] [address] [place] [phone] Clarity Nom (U) Clear Normal Clear [facility] Comment on above: Performed By: #### U A ####[place] [address] [place] [address] [phone] Color Nom (U) Yellow Normal Yellow [facility] Comment on above: Performed By: #### U A ####[place] [address] [place] [address] [phone] Comments SEE COMMENT Normal [facility] Comment on above: Result Comment: Micr oscopic not warranted Performed By: #### U A ####[place] [address] [place] [address] [phone] Glucose Ql (U) Negative Normal Negative [facility] Comment on above: Performed By: #### U A ####[place] [address] [place] [address] [phone] Hemoglobin/Blood,Ur Negative Normal Negative [facility] Comment on above: Performed By: #### U A ####[place] [address] [place] [address] [phone] Ketones Ql (U) Negative Normal Negative [facility] Comment on above: Performed By: #### U A ####[facility] [place] [address] [phone] Leukest Negative Normal Negative [facility] Comment on above: Performed By: #### U A ####[facility] [place] [address] [phone] Nitrite Ql (U) Negative Normal Negative [facility] Comment on above: Performed By: #### U A ####[facility] [place], [place] [phone] pH (Bld) 6.0 Normal 4.5-8.[address] [facility] Comment on above: Performed By: #### U A ####[address] [phone] Protein mass conc (U) Negative Normal Negative [facility] Comment on above: Performed By: #### U A ####[address] [phone] Specific [place], Ur 1.018 Normal 1.005-1.030 [facility] Comment on above: Performed By: #### U A ####[address] [phone] Urine Shravan Comment SEE COMMENT Normal [facility] Comment on above: Result Comment: N/A Performed By: #### U A ####[address] [phone] Urobilinogen Qn (U) Normal Normal Normal [facility] Comment on above: Performed By: #### U A ####[facility] [place], [place] [phone] Мария 05-06-2018 CNOV Office Visit (UROLMN) ---- DELVIN LLOYD ([id number]) 1980 M [facility] Date Time Provider Department 05/06/18 1:15 [...] found for: TESTOST A/P: 37yo M w/ [id number] penile cancer s/p partial penectomy 01/2018 w/ [...] PM Signed z Referring Provider: AXEL ALEXANDER [[id number]] Allergies As of Date: 05/06/2018 (No Known Allergies) Date Reviewed: 05/06/2018 Reviewed by: Axel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
[2024-03-30] MEDS: ACETAMINOPHEN 325 MG TABLET 650 MG PO (18:41)
[2024-03-30 20:35] LABS: Hemoglobin 8.3 g/dL (14.0-18.0)
[2024-03-31] VITALS (7 sets, daily range): BP systolic 125–126; BP diastolic 69–74; PULSE 58–70; TEMP 36.7–36.8; O2SAT 97
[2024-03-31 05:10] LABS: Basophils Absolute Auto 0.1 10^3/uL (0.0-0.1); Basophils Percent Auto 1.1 % (0.2-2.0); Eosinophils Absolute Auto 0.4 10^3/uL (0.0-0.7); Eosinophils Percent Auto 8.7 % (0.9-7.0); Hematocrit 29.6 % (42.0-54.0); Immature Granulocytes Abs Auto 0.01 10^3/uL (0.00-0.03); Immature Granulocytes Pct Auto 0.2 % (0.0-0.5); Lymphocytes Absolute Auto 1.2 10^3/uL (1.2-3.8); Lymphocytes Percent Auto 27.8 % (20.5-60.0); Mean Corpuscular HGB Conc 30.4 g/dL (29.9-35.2); Mean Corpuscular Hemoglobin 22.4 pg (25.9-34.0); Mean Corpuscular Volume 73.8 fL (80.0-94.0); Mean Platelet Volume 10.4 fL (9.5-13.5); Monocytes Absolute Auto 0.5 10^3/uL (0.3-0.8); Monocytes Percent Auto 12.3 % (1.7-12.0); Neutrophils Absolute Auto 2.2 10^3/uL (1.4-6.5); Neutrophils Percent Auto 49.9 % (43.0-75.0); Platelet Count 192 10^3/uL (150-450); Red Blood Count 4.01 10^6/uL (4.70-6.10); Red Cell Distribution Width 17.3 % (11.0-15.0); White Blood Count 4.4 10^3/uL (4.0-11.0)
[2024-03-31 05:36] LABS: Alanine Aminotransferase 24 U/L (16-63); Albumin Globulin Ratio 0.9; Albumin Level 3.4 g/dL (3.4-5.0); Alkaline Phosphatase 75 U/L (46-116); Anion Gap 13.8; Aspartate Amino Transferase 14 U/L (15-37); BUN Creatinine Ratio 12.5; Bilirubin Total 0.6 mg/dL (0.2-1.0); Calcium 8.9 mg/dL (8.5-10.1); Carbon Dioxide 25.3 mmol/L (21.0-32.0); Chloride 104 mmol/L (98-107); Estimated GFR (African America >60 (>=60); Estimated GFR (Non-African Ame >60 (>=60); Globulin 3.6 g/dL; Glucose 123 mg/dL (74-106); Potassium 4.1 mmol/L (3.5-5.1); Sodium 139 mmol/L (136-145)
[2024-03-31] MEDS: AMLODIPINE BESYLATE 5 MG TABLET 10 MG PO (08:35)
[2024-03-31] MEDS: PANTOPRAZOLE SODIUM 40 MG VIAL IV (08:35)
--- NOTE | 2024-03-31 08:36 | P.DS_ITS ---
DS: Providers Provider Date of admission: 03/30/24 15:40 Primary care physician: Non-Staff Physician, Discharging clinician: Angle Escobedo DS: Diagnosis Discharge Diagnosis (1) Symptomatic anemia: (2) Occult blood in stools: (3) Anemia due to acute blood loss: (4) Hypertension: Qualifiers: Hypertension type: primary hypertension Qualified Code(s): I10 - Essential (primary) hypertension (5) Laceration of right leg excluding thigh: Qualifiers: Encounter type: subsequent encounter Qualified Code(s): S81.811D - Laceration without foreign body, right lower leg, subsequent encounter DS: Summary Hospital Course Hospital Course: The patient was admitted with acute, symptomatic blood loss anemia from a recent RLE injury that bled copiously. His FOB was positive for blood, but there was no evidence of active GI bleeding, no melena or hematochezia. He was transfused with 1 un PRBCs and his hgb has stabilized at 9. The pt reports feeling much better than on admission. Labs also revealed iron deficiency anemia at baseline. The pt is being discharged home in stable condition with a prescription for iron supplementation. He needs to establish with a PCP as soon as possible and follow up regarding iron deficiency anemia. He was noted to be hypertensive on admission that improved after he was started on amlodipine and will need to follow up with PCP for it. He will also need outpatient colonoscopy for occult blood in stool to r/o colon cancer. Time Spent with Patient Time attestation: Total time spent providing and/or coordinating discharge services: Time spent: greater than 30 minutes Specific discharge activities: Physical exam, discussion of discharge plan, questions answered. Exam Constitutional Vital Signs, click to edit/add: Last Vital Signs Temp 98.2 F 03/31/24 07:45 Pulse 70 03/31/24 08:00 Resp 16 03/31/24 08:00 BP 125/69 03/31/24 07:45 Pulse Ox 97 03/31/24 07:45 O2 Del Method Room Air 03/31/24 07:45 Common normals: no apparent distress, oriented x3 and alert General appearance: cooperative Orientation/consciousness: Yes awake HENMT Common normals: normocephalic and head/scalp atraumatic Eye Common normals: PERRL, EOMs intact bilaterally, conjunctivae normal and no scleral icterus Neck & C-Spine Common normals: no JVD Respiratory Common normals: normal respiratory effort, no use of accessory muscles and clear to auscultation bilaterally Effort & inspection: able to speak in complete sentences and symmetric chest movement Cardio Common normals: no JVD, regular rate, regular rhythm, S1 normal heart sound, S2 normal heart sound, no murmurs and peripheral pulses 2+ throughout GI Common normals: Normal to inspection, nondistended, normoactive bowel sounds present, soft to palpation and non-tender Palpation: soft Bladder/kidney exam: bladder normal to palpation Extremity Common normals: normal to inspection, full ROM, normal capillary refill and no pedal edema General: no clubbing and no cyanosis Right lower extremity: lower leg (Medial calf lac, 4 sutures, D&I, no erythema/calor/drng) Neuro Common normals: moves all extremities, no focal motor deficits and no sensory deficits noted Speech: speech normal Psych Common normals: mental status grossly normal and activity/motor behavior normal DS: Data Data Completed and Pending Labs on day of discharge: Labs from last 24 hours 03/31/24 03/30/24 03/30/24 04:54 20:04 13:03 WBC 4.4 RBC 4.01 L Hgb 9.0 L 8.3 L 8.3 L Hct 29.6 L 28.0 L 27.8 L MCV 73.8 L MCH 22.4 L MCHC 30.4 RDW 17.3 H Plt Count 192 MPV 10.4 Neut % (Auto) 49.9 Lymph % (Auto) 27.8 [place] % (Auto) 12.3 H Eos % (Auto) 8.7 H Baso % (Auto) 1.1 Neut # (Auto) 2.2 Lymph # (Auto) 1.2 [place] # (Auto) 0.5 Eos # (Auto) 0.4 Baso # (Auto) 0.1 Abs Immat Gran (auto) 0.01 Imm/Tot Granulo (auto) 0.2 Sodium 139 Potassium 4.1 Chloride 104 Carbon Dioxide 25.3 Anion Gap 13.8 BUN 9.0 Creatinine 0.72 Est GFR ( Amer) >60 Est GFR (Non-Af Amer) >60 BUN/Creatinine Ratio 12.5 Glucose 123 H Calcium 8.9 Iron TIBC % Saturation Ferritin Total Bilirubin 0.6 AST 14 L ALT 24 Alkaline Phosphatase 75 Total Protein 7.0 Albumin 3.4 Globulin 3.6 Albumin/Globulin Ratio 0.9 Blood Type Antibody Screen Crossmatch 03/30/24 03/30/24 07:48 06:00 WBC RBC Hgb Hct MCV MCH MCHC RDW Plt Count MPV Neut % (Auto) Lymph % (Auto) [place] % (Auto) Eos % (Auto) Baso % (Auto) Neut # (Auto) Lymph # (Auto) [place] # (Auto) Eos # (Auto) Baso # (Auto) Abs Immat Gran (auto) Imm/Tot Granulo (auto) Sodium Potassium Chloride Carbon Dioxide Anion Gap BUN Creatinine Est GFR ( Amer) Est GFR (Non-Af Amer) BUN/Creatinine Ratio Glucose Calcium Iron 7.0 L TIBC 368.0 % Saturation 1.9 Ferritin 8.0 L Total Bilirubin AST ALT Alkaline Phosphatase Total Protein Albumin Globulin Albumin/Globulin Ratio Blood Type O Positive Antibody Screen Negative Crossmatch See Detail Discharge Plan Discharge Disposition: Home, Self-Care Condition: Good Discharge Medications: New ferrous sulfate [Iron (ferrous sulfate)] 325 mg (65 mg iron) tablet 325 mg PO BID Qty: 60 0RF amlodipine 5 mg tablet 5 mg PO DAILY Qty: 30 0RF Activity: increase activity as tolerated Diet: advance to your usual diet Print Language: Icelandic Patient Instructions: Iron Supplements (By mouth) (Duofer, Fe-20, Bifera, Eliel- Iron), Iron Rich Diet (ED), Chronic Hypertension (ED), Chronic Hypertension (DC), Anemia (ED) Activity Restrictions/Additional Instructions: - Take OTC stool softeners as needed for constipation caused by iron supplement Forms: Portal Instructions Follow Up Appointments: Patient wants to find a new PCP in [place]. Will make a follow up appointment today Discharge Date/Time: 03/31/24 09:47
--- NOTE | 2024-03-31 08:43 | CM.NOTE ---
Verified with pt about self-pay status. Pt voices he does not have insurance at this time. Called financial counselor to machine operator hop picker HCAP form that pt has completed.
--- NOTE | 2024-03-31 10:13 | CM.NOTE ---
Rounds made with Dr. Fay, pt will discharge to home today. No discharge needs identified.
--- OUTSIDE RECORDS SUMMARY | 2024-04-01 11:47 | XMS_ITS | CCD ---
Author Organization [facility] Care Team Providers Care Policy Manager Name Role Phone AXEL ALEXANDER Referring Unavailabl [...] gap [Moles/Vol] 15 mmol/L Normal 10-20 [facility] Comment on above: Performed By: #### C H8 #### [facility] [address] [place] [address], Calcium [Mass/Vol] 7.9 mg/dL Low 8.6-10.3 [facility] Comment on above: Performed By: #### C H8 #### [facility] [address] [place] [address], Chloride [Moles/Vol] 105 mmol/L Normal 98-107 [facility] Comment on above: Performed By: #### C H8 #### [facility] [address] [place] [address], CO2 [Moles/Vol] 19 mmol/L Low 21-31 [facility] Comment on above: Performed By: #### C H8 #### [facility] [address] [place] [address], Creatinine [Mass/Vol] 0.80 mg/dL Normal 0.70-1.30 [facility] Comment on above: Performed By: #### C H8 #### [facility] [address] [place] [address], ESTIMATED GFR (CKD-EPI) 112 mL/min/1.73sqm Normal >=60 [...] Inclusion of Race in Diagnosing Kidney Disease. Egyptian Journal of Kidney Diseases 2021;79(2):268-88.e1. 2. N Engl J Med 1 Vol. 385 Issue 19 Pages [phone] Performed By: #### C H8 #### [facility] [address] [place] [address], Glucose [Mass/Vol] 235 mg/dL High 74-109 [facility] Comment on above: Performed By: #### C H8 #### [facility] [address] [place] [address], Potassium [Moles/Vol] 3.9 mmol/L Normal 3.5-5.0 [facility] Comment on above: Performed By: #### C H8 #### [facility] [address] [place] [address], Sodium [Moles/Vol] 135 mmol/L Low 136-145 [facility] Comment on above: Performed By: #### C H8 #### [facility] [address] [place] [address], Urea nitrogen [Mass/Vol] 15 mg/dL Normal 7-25 [facility] Comment on above: Performed By: #### C H8 #### [facility] [address] [place] [address], Basic metabolic 2000 panelon 03-27-2024 Anion gap [Moles/Vol] 15 mmol/L 10 - 20 Met [facility] Calcium [Mass/Vol] 7.9 mg/dL Low 8.6 - 10. 3 mg/dL [facility] Chloride [Moles/Vol] 105 mmol/L 98 - 107 mmol/L [facility] CO2 [Moles/Vol] 19 mmol/L Low 21 - 31 mmol/L [facility] Creatinine [Mass/Vol] 0.80 mg/dL 0.70 - 1.30 mg/dL [facility] GFR/1.73 sq M.predicted CKD-EPI (S/P/Bld) [Vol rate/Area] 112 - PINF [facility] Comment on above: 2020 CKD EPI [...] Inclusion of Race in Diagnosing Kidney Disease. Egyptian Journal of Kidney Diseases 202;79(2):268-88.e1. 2. N Engl J Med 1 Vol. 385 Issue 19 Pages [phone] Glucose [Mass/Vol] 235 mg/dL High 74 - 109 mg/dL [facility] Interpretation and review of laboratory results Abnormal [facility] Potassium [Moles/Vol] 3.9 mmol/L 3.5 - 5.0 mmol/L [facility] Sodium [Moles/Vol] 135 mmol/L Low 136 - 145 mmol/L [facility] Urea nitrogen [Mass/Vol] 15 mg/dL 7 - 25 mg/dL [facility] CBC WITH DIFFERENTIALon Basophils (Bld) [#/Vol] 0.06 10*3/uL Normal 0.00-0.20 [facility] Comment on above: Performed By: #### h iv1 hiv2 agab scrn #### [facility] [address] [place], [place], Basophils/100 WBC (Bld) 1.0 % Normal <=1.9 [facility] Comment on above: Performed By: #### h iv1 hiv2 agab scrn #### [facility] [address] [place] [address], Eosinophils (Bld) [#/Vol] 0.11 10*3/uL Normal 0.00-0.70 [facility] Comment on above: Performed By: #### h iv1 hiv2 agab scrn #### [facility] [address] [place] [address], Eosinophils/100 WBC (Bld) 2.1 % Normal 0.1-4.0 [facility] Comment on above: Performed By: #### h iv1 hiv2 agab scrn #### [facility] [address] [place] [address], Erythrocyte distribution width (RBC) [Ratio] 18.9 % High 11.5-14.5 [facility] Comment on above: Performed By: #### h iv1 hiv2 agab scrn #### [facility] [address] [place] [address], Hematocrit (Bld) [Volume fraction] 25.3 % Low 41.0-53.0 [facility] Comment on above: Performed By: #### h iv1 hiv2 agab scrn #### [facility] [address] [place] [address], Hemoglobin (Bld) [Mass/Vol] 7.4 g/dL Low 13.9-16.3 [facility] Comment on above: Performed By: #### h iv1 hiv2 agab scrn #### [facility] [address] [place] [address], Lymphocytes (Bld) [#/Vol] 0.90 10*3/uL Low 1.00-4.80 [facility] Comment on above: Performed By: #### h iv1 hiv2 agab scrn #### [facility] [address] [place] [address], Lymphocytes/100 WBC (Bld) 16.6 % Low 24.0-44.0 [facility] Comment on above: Performed By: #### h iv1 hiv2 agab scrn #### [facility] [address] [place] [address], MCH (RBC) [Entitic mass] 20.6 pg Low 26.0-34.0 [facility] Comment on above: Performed By: #### h iv1 hiv2 agab scrn #### [facility] [address] [place] [address], MCHC (RBC) [Mass/Vol] 29.1 g/dL Low 32.0-35.9 [facility] Comment on above: Performed By: #### h iv1 hiv2 agab scrn #### [facility] [address] [place] [address], MCV (RBC) [Entitic vol] 71 fL Low 80-100 [facility] Comment on above: Performed By: #### h iv1 hiv2 agab scrn #### [facility] [address] [place] [address], MONOCYTE DISTRIBUTION WIDTH 16 Normal <=20 [facility] Comment on above: Performed By: #### h iv1 hiv2 agab scrn #### [facility] [address] [place] [address], Monocytes (Bld) [#/Vol] 0.44 10*3/uL Normal 0.20-1.00 [facility] Comment on above: Performed By: #### h iv1 hiv2 agab scrn #### [facility] [address] [place] [address], Monocytes/100 WBC (Bld) 8.1 % Normal 2.0-11.0 [facility] Comment on above: Performed By: #### h iv1 hiv2 agab scrn #### [facility] [address] [place] [address], Neutrophils (Bld) [#/Vol] 3.92 10*3/uL Normal 1.50-8.00 [facility] Comment on above: Performed By: #### h iv1 hiv2 agab scrn #### [facility] [address] [place] [address], Neutrophils/100 WBC (Bld) 72.2 % Normal 31.0-76.0 [facility] Comment on above: Performed By: #### tressa iv1 hiv2 agab scrn #### [facility] [address] [place] [address], Platelet mean volume (Bld) [Entitic vol] 8.9 fL Normal 7.5-11.2 [facility] Comment on above: Performed By: #### h iv1 hiv2 agab scrn #### [facility] [address] [place] [address], Platelets (Bld) [#/Vol] 129 10*3/uL Low 150-400 [facility] Comment on above: Performed By: #### h iv1 hiv2 agab scrn #### [facility] [address] [place] [address], RBC (Bld) [#/Vol] 3.57 10*6/uL Low 4.50-5.90 [facility] Comment on above: Performed By: #### h iv1 hiv2 agab scrn #### [facility] [address] [place] [address], WBC (Bld) [#/Vol] 5.4 10*3/uL Normal 4.5-11.5 [facility] Comment on above: Performed By: #### tressa iv1 hiv2 agab scrn #### [facility] [address] [place] [address], Basophils (Bld) [#/Vol] 0.06 10*3/uL 0.00 - [...] right lower extremity. MACRO: None Normal [facility] Provider Noteson 03-27-20 [employer] Authentication Interface Message Text EMERGENCY DEPARTMENT - [...] reviewed: Sinus rhythm [MS] 0301 BMP without mariteta or clinically significant electrolyte abnormalities contributing to [...] resident's note. Dago Simon MD Normal [facility] [employer] Authentication Interface Message Text SHIREEN 43M h/o [...] visit summary. Aj Aviles MD Normal [facility] HIGH SENSITIVITY TROPONIN Io n 03-27-2024 HS TROPONIN I 19 ng/L High <=15 [facility] Comment on above: Order Comment: High Sensitivity Cardiac Troponin I (hsTnI) assay has replaced the conventional troponin assay at [facility]. All results are reported in whole numbers representing ng/L. Repeat test times for ruling out acute coronary syndrome (ACS) are every 2 hours instead of every 6-8 hours. Txban-ar-hibd conventional troponin (I-stat) will remain available in the [facility] ??? results obtained by different labs [...] points). Performed By: #### H STRP #### [facility] [address] [place] [address], Troponin I.cardiac DL <= 0.01 ng/mL [Mass/Vol] 19 ng/L High NINF - 15 ng/L [facility] HS TROPONIN I 19 ng/L High <=15 [facility] Comment on above: Order Comment: HIV Information: ???[place] Rev. code 3701.243(E): This information has been [...] hiv2 agab scrn #### [facility] [address] [place] [address], Troponin I.cardiac DL <= 0.01 ng/mL [Mass/Vol] 19 ng/L High NINF - 15 ng/L [facility] Trop[facility] I.cardiac DL <= 0.0 1 ng/mL [Mass/Vol]on 03-27-2024 Interpretation and review of laboratory results Abnormal [facility] High Sensitivity Cardiac Troponin I (hsTnI) assay has replaced the conventional troponin assay at [facility]. All results are reported in whole numbers representing ng/L. Repeat test times for ruling out acute coronary syndrome (ACS) are every 2 hours instead of every 6-8 hours. Kwzji-hr-ybni conventional troponin (I-stat) will remain available in the [facility] [place] [facility] results obtained by different labs or [...] 1 points, >45 ng/L = 2 points). [facility] Interpretation and review of laboratory results Abnormal [facility] High Sensitivity Cardiac Troponin I (hsTnI) assay has replaced the conventional troponin assay at [facility]. All results are reported in whole numbers representing ng/L. Repeat test times for ruling out acute coronary syndrome (ACS) are every 2 hours instead of every 6-8 hours. Cjicq-sn-fayc conventional troponin (I-stat) will remain available in the [facility] ED results obtained by different [...] 1 points, >45 ng/L = 2 points). [facility] ABO RH TYPEon 03-26-2024 [facility] ABO and Rh group Nom (Bld) Blood group O Rh(D) positive Normal [facility] Comment on above: Performed By: #### h iv1 hiv2 agab scrn #### [facility] [address] [place] [address], [id number] ANTIBODY ID - LAB USE ONLYon 03-26-2024 Antibody Identification Anti-M [facility] Comment on above: In Gel. RUDY is nega tive. ABID Anti-M Normal [facility] Comment on above: Result Comment: In G el. RUDY is negative. Performed By: #### A BID, TS, AG PAT #### [facility] [address] [place] [address], ANTIGEN TYPING PATIENTon M Ag Ql (RBC) Negative [facility] Patient Antigen Interp Completed [facility] M ANTIGEN (MONOCLONAL) Negative Normal e [facility] Comment on above: Performed By: #### h iv1 hiv2 agab scrn #### [facility] [address] [place] [address], PATIENT ANTIGEN INTERP Completed Normal e [facility] Comment on above: Performed By: #### h iv1 hiv2 agab scrn #### [facility] [address] [place] [address], BASIC METABOLIC PANELon Anion gap [Moles/Vol] 15 mmol/L Normal 10-20 [facility] Comment on above: Performed By: #### C H8, ETOH #### [facility] [address] [place] [address], Calcium [Mass/Vol] 7.9 mg/dL Low 8.6-10.3 [facility] Comment on above: Performed By: #### C H8, ETOH #### [facility] [address] [place] [address], Chloride [Moles/Vol] 108 mmol/L High 98-107 [facility] Comment on above: Performed By: #### C H8, ETOH #### [facility] [address] [place] [address], CO2 [Moles/Vol] 20 mmol/L Low 21-31 [facility] Comment on above: Performed By: #### C H8, ETOH #### S [facility] [address] [place] [address], Creatinine [Mass/Vol] 1.03 mg/dL Normal 0.70-1.30 [facility] Comment on above: Performed By: #### C H8, ETOH #### [facility] [address] [place] [address], ESTIMATED GFR (CKD-EPI) 92 mL/min/1.73sqm Normal >=60 [facility] Comment on above: Result Comment: [...] Inclusion of Race in Diagnosing Kidney Disease. [place] Journal of Kidney Diseases 2021;79(2):268-88.e1. 2. N Engl J Med 2020 Vol. 385 Issue 19 Pages 8210-8449 Performed By: #### C H8, ETOH #### [facility] [address] [place] [address], Glucose [Mass/Vol] 193 mg/dL High 74-109 [facility] Comment on above: Performed By: #### C H8, ETOH #### [facility] [address] [place] [address], Potassium [Moles/Vol] 3.6 mmol/L Normal 3.5-5.0 [facility] Comment on above: Performed By: #### C H8, ETOH #### [facility] [address] [place] [address], Sodium [Moles/Vol] 139 mmol/L Normal 136-145 [facility] Comment on above: Performed By: #### C H8, ETOH #### [facility] [address] [place] [address], Urea nitrogen [Mass/Vol] 18 mg/dL Normal 7-25 [facility] Comment on above: Performed By: #### C H8, ETOH #### [facility] [address] [place] [address], Basic metabolic 2000 panelon 03-26-2024 Anion gap [Moles/Vol] 15 mmol/L 10 - 20 Met [facility] Calcium [Mass/Vol] 7.9 mg/dL Low 8.6 - 10. 3 mg/dL [facility] Chloride [Moles/Vol] 108 mmol/L High 98 - 107 mmol/L [facility] CO2 [Moles/Vol] 20 mmol/L Low 21 - 31 mmol/L [facility] Creatinine [Mass/Vol] 1.03 mg/dL 0.70 - 1.30 mg/dL [facility] GFR/1.73 sq M.predicted CKD-EPI (S/P/Bld) [Vol rate/Area] 92 - PINF [facility] Comment on above: 2020 CKD EPI [...] Inclusion of Race in Diagnosing Kidney Disease. [place] Journal of Kidney Diseases 2021;79(2):268-88.e1. 2. N Engl J Med 2020 Vol. 385 Issue 19 Pages [phone] Glucose [Mass/Vol] 193 mg/dL High 74 - 109 mg/dL [facility] Interpretation and review of laboratory results Abnormal [facility] Potassium [Moles/Vol] 3.6 mmol/L 3.5 - 5.0 mmol/L [facility] Sodium [Moles/Vol] 139 mmol/L 136 - 145 mmol/L [facility] Urea nitrogen [Mass/Vol] 18 mg/dL 7 - 25 mg/dL [facility] CBC WITH DIFFERENTIALon 05-0 Basophils (Bld) [#/Vol] 0.07 10*3/uL Normal 0.00-0.20 [facility] Comment on above: Performed By: #### C H8, ETOH #### [facility] [address] [place] [address], Basophils/100 WBC (Bld) 1.4 % Normal <=1.9 [facility] Comment on above: Performed By: #### C H8, ETOH #### [facility] [address] [place] [address], Eosinophils (Bld) [#/Vol] 0.23 10*3/uL Normal 0.00-0.70 [facility] Comment on above: Performed By: #### C H8, ETOH #### [facility] [address] [place], [place], Eosinophils/100 WBC (Bld) 4.8 % High 0.1-4.0 [facility] Comment on above: Performed By: #### C H8, ETOH #### [facility] [address] [place] [address], Erythrocyte distribution width (RBC) [Ratio] 19.1 % High 11.5-14.5 [facility] Comment on above: Performed By: #### C H8, ETOH #### [facility] [address] [place] [address], Hematocrit (Bld) [Volume fraction] 26.0 % Low 41.0-53.0 [facility] Comment on above: Performed By: #### Pierre H8, ETOH #### [facility] [address] [place] [address], Hemoglobin (Bld) [Mass/Vol] 7.7 g/dL Low 13.9-16.3 [facility] Comment on above: Performed By: #### Pierre H8, ETOH #### [facility] [address] [place] [address], Lymphocytes (Bld) [#/Vol] 1.52 10*3/uL Normal 1.00-4.80 [facility] Comment on above: Performed By: #### C H8, ETOH #### [facility] [address] [place], [place], Lymphocytes/100 WBC (Bld) 31.4 % Normal 24.0-44.0 [facility] Comment on above: Performed By: #### C H8, ETOH #### [facility] [address] [place] [address], MCH (RBC) [Entitic mass] 21.1 pg Low 26.0-34.0 [facility] Comment on above: Performed By: #### C H8, ETOH #### [facility] [address] [place] [address], MCHC (RBC) [Mass/Vol] 29.4 g/dL Low 32.0-35.9 [facility] Comment on above: Performed By: #### C H8, ETOH #### S [facility] [address] [place], [place], MCV (RBC) [Entitic vol] 72 fL Low 80-100 [facility] Comment on above: Performed By: #### C H8, ETOH #### [facility] [address] [place], [place], MONOCYTE DISTRIBUTION WIDTH 15 Normal <=20 [facility] Comment on above: Performed By: #### C H8, ETOH #### [facility] [address] [place], [place], Monocytes (Bld) [#/Vol] 0.47 10*3/uL Normal 0.20-1.00 [facility] Comment on above: Performed By: #### C H8, ETOH #### [facility] [address] [place], [place], Monocytes/100 WBC (Bld) 9.7 % Normal 2.0-11.0 [facility] Comment on above: Performed By: #### C H8, ETOH #### [facility] [address] [place], [place], Neutrophils (Bld) [#/Vol] 2.56 10*3/uL Normal 1.50-8.00 [facility] Comment on above: Performed By: #### C H8, ETOH #### [facility] [address] [place], [place], Neutrophils/100 WBC (Bld) 52.7 % Normal 31.0-76.0 [facility] Comment on above: Performed By: #### C H8, ETOH #### [facility] [address] [place], [place], Platelet mean volume (Bld) [Entitic vol] 8.5 fL Normal 7.5-11.2 [facility] Comment on above: Performed By: #### C H8, ETOH #### [facility] [address] [place], [place], Platelets (Bld) [#/Vol] 142 10*3/uL Low 150-400 [facility] Comment on above: Performed By: #### C H8, ETOH #### [facility] [address] [place], [place], RBC (Bld) [#/Vol] 3.63 10*6/uL Low 4.50-5.90 [facility] Comment on above: Performed By: #### C H8, ETOH #### [facility] [address] [place], [place], WBC (Bld) [#/Vol] 4.9 10*3/uL Normal 4.5-11.5 [facility] Comment on above: Performed By: #### C H8, ETOH #### [facility] [address] [place], [place], CBC WITH DIFFERENTIALOrdered By: Margareth Linder [...] acute intracranial abnormality. MACRO: None Normal [facility] CT Head WO contrastOrdered B y: Rashad Godfrey on 03-26-2024 CT DLP 1325.7 (mGy.cm) [facility] Work Phone: CT Series Head [facility] Work Phone: CTDI VOL 67.5 (mGy) [facility] Phone: PHANTOM TYPE IEC Head Dosimetry Phantom [facility] Work Phone: [facility] Work Phone: CT Head WO contraston [...] IMPRESSION: No acute intracranial abnormality. MACRO: None [facility] Radiology Study observation (narrative) [facility] ED Noteson 03-26-2024 [employer] Authentication Interface Message Text Dr. BUSH notified of critical LACTATE value of 3.5. Hard copy of results given to Dr. BUSH. Normal [facility] Provider Noteson 03-26-20 [employer] Authentication Interface Message Text HISTORY OF PRESENT [...] at the ED. Interpretive services were used, manager of medical #[id number]. REVIEW OF SYSTEMS Review of Systems Constitutional: [...] al (more content not included)... Normal [facility] [employer] [facility] ED Triage Noteson 03-26-2024 [employer] Authentication Interface Message Text See EMS runsheet Normal [facility] [employer] [facility] ETHANOL, SERUMon 03-26-2024 Ethanol [Mass/Vol] mg/dL Normal None Detected [facility] Comment on above: Performed By: #### C H8, ETOH #### [facility] [address] [place] [address], [phone] Ethanol [Mass/Vol] mg/dL None Dete cted mg/dL [facility] Interpretation and review of laboratory results Normal [facility] H AND [place] 03-26-2024 [employer] Authentication Interface Message Text ---- Attestation signed [...] and Emergency General Surgery Department of Surgery [facility] [phone] ---- [facility] Department of Surgery Division of Trauma Surgery, Acute Care Surgery, Critical Care, and Bae TRAUMA SURGERY HISTORY AND PHYSICAL Delvin Dubon [phone] BASIC INJURY INFORMATION: Level of activation: Category 2 Trauma Mode of transport: Ambulance: EMS Mechanism of injury: Metal pole from leg Complicating features: Moroccan speaking, AMS Protective measures: Not applicable Date [...] use: No Living status: Home Primary language: Moroccan Functional status: Independent Impairments: Unknown Assistive Devices [...] RADIOLOG (more content not included)... Normal [facility] HIV 1 and 2 Ab and HIV 1 p24 Ag panel IAon 03-26-2024 HIV 1+2 Ab+HIV1 p24 Ag IA Ql Non-Reactive Non-Reactive [facility] Comment on above: No laboratory eviden ce for HIV Infection. Negative result does not rule out acute HIV infection. If acute HIV infection is suspected, recommend ordering an HIV-1 RNA quanitification test. Interpretation and review of laboratory results Normal [facility] HIV Information: [place] Rev. code 3701.243(E): This information has been [...] release of HIV test results or diagnoses. [facility] HIV1 HIV2 AGAB SCRNon 2023 HIV AG-AB SCREEN Non-Reactive Normal Non-Reactive [facility] Comment on above: Order Comment: HIV Information: ???[place] Rev. code 3701.243(E): This information has been [...] #### h iv1 hiv2 agab scrn #### [facility] PATHOLOGY LABORATORY [address] [place] [address], LACTIC ACIDon 03-26-2024 CR LACT 3.5 mmol/L Critically high 0.5-1.6 [facility] Comment on above: Performed By: #### L ACT #### [facility]ORY [address] [place] [address], LACTIC ACIDOrdered By: Mg Hooper on 03-26-2024 Interpretation and review of laboratory results Abnormal [facility] Lactate [Moles/Vol] 3.5 mmol/L Critically high 0.5 - 1.6 mmol/L [facility] Laboratory - Blood bankon ABO and Rh group Nom (Bld) Blood group O Rh(D) positive [facility] MANUAL DIFF AND MORPHon CELLS COUNTED TOTAL # IN BLOOD Normal [facility] Comment on above: Performed By: #### C H8, ETOH #### S PATHOLOGY LABORATORY [address] [place] [address], HYPOCHROMASIA Marked Normal [facility] Comment on above: Performed By: #### C H8, ETOH #### S PATHOLOGY LABORATORY [address] [place] [address], MICROCYTOSIS Slight Normal [facility] Comment on above: Performed By: #### C H8, ETOH #### S PATHOLOGY LABORATORY [address] [place] [address], OVALOCYTES Few Normal [facility] Comment on above: Performed By: #### C H8, ETOH #### S PATHOLOGY LABORATORY [address] [place] [address], Cells Counted Total (Bld) [#] [facility] Microcytes Ql (Bld) Slight [facility] Ovalocytes LM Ql (Bld) Few [facility] RBC.hypochromic/100 RBC Auto (Bld) Marked [facility] No Panel Informationon 03-26 [facility] Radiology Study observation (narrative) [facility] No Panel InformationOrdered By: Margareth Linder on 03-26-2024 [facility] PARTIAL THROMBOPLASTIN TIMEo n 03-26-2024 aPTT Coag (Bld) [Time] s Low 25-37 Th [facility] Comment on above: Performed By: #### P T, APTT #### S PATHOLOGY LABORATORY [address] [place], [place], aPTT Coag (Bld) [Time] Low [facility] Interpretation and review of laboratory results Abnormal [facility] PROTHROMBIN TIME AND INRon 0 03-26-2024 INR Coag (PPP) [Relative time] 1.11 {INR} High 0.90-1.10 [facility] Comment on above: Performed By: #### P T, APTT #### [facility] [address] [place], [place], PT Coag (PPP) [Time] 12.4 s Normal 9.7-12.9 [facility] Comment on above: Performed By: #### P T, APTT #### [facility] [address] [place], [place], INR Coag (PPP) [Relative time] 1.11 {INR} High 0.90 - 1.10 [facility] Interpretation and review of laboratory results Abnormal [facility] PT Coag (PPP) [Time] 12.4 s [facility] Progress Noteson 03-26-2024 [employer] Authentication Interface Message Text CAT 3 was [...] was called 911. Pt friend Ene Castro [phone] says that Pt called her to let [...] D/C unknown at this time Briseida Platt, CHILD CARE PROVIDER, FAMILY PRACTICE MEDICAL DOCTOR ED Social Work Normal [facility] TYPE AND SCREENon 03-26-2024 ABO and Rh group Nom (Bld) Blood group O Rh(D) positive [facility] ABO and Rh group Nom (Bld) No Previous Results [facility] Blood group antibody screen Ql Positive [facility] ABO and Rh group Nom (Bld) Blood group O Rh(D) positive Normal [facility] Comment on above: Performed By: #### A JANELLE JASSO AG PAT #### [facility] [address] [place] [address], ABO and Rh group Nom (Bld) No Previous Results Normal [facility] Comment on above: Performed By: #### A JANELLE JASSO AG PAT #### [facility] [address] [place] [address], ABSC INT Positive Normal [facility] Comment on above: Performed By: #### A JANELLE JASSO AG PAT #### [facility] [address] [place] [address], XR ANKLE RIGHT 3 VIEWSon XR ANKLE [...] body. Right ankle MACRO: None Normal [facility] XR Ankle - right 3 Viewson [...] radiopaque foreign body. Right ankle MACRO: None [facility] XR FEMUR RIGHT MINIMUM 2 VIE WSon [...] CT Right femur MACRO: None Normal [facility] XR Femur - right 2 Viewson [...] dislocation. Right knee MACRO: None Normal [facility] XR Knee - right Viewson EXAMINATION: [...] tibia and fibula MACRO: None Normal [facility] XR Tibia and Fibula - right [...] CT Right tibia and fibula MACRO: None [facility] XR Tibia and Fibula - right ViewsOrdered By: Julio Cesar Simpson on 03-26-2024 [facility] Work Phone: CBC W Auto Differential pane l (Bld)on 12-11-2022 Basophils (Bld) [#/Vol] 0.06 10*3/uL Normal <0.11 [place] Comment on above: Order Comment: Speci men Type: BLOOD SPECIMEN Ordering Facility: [facility] Address: [address] [place] [address] Performed By: #### 5 7021-8 #### [facility] CLIA [id number] [address] [place] [address] [place] Basophils/100 WBC (Bld) 1.3 % Normal [place] Comment on above: Order Comment: Speci men Type: BLOOD SPECIMEN Ordering Facility: [facility] Address: [address] [place] [address] Performed By: #### 5 7021-8 #### [facility] CLIA [id number] [address] [place] [address] [place] Differential cell count method Nom (Bld) Auto Normal [place] Comment on above: Order Comment: Speci men Type: BLOOD SPECIMEN Ordering Facility: [facility] Address: [address] [address] Performed By: #### 5 7021-8 #### [facility] CLIA [id number] [facility] [place] [address] [place] Eosinophils (Bld) [#/Vol] 0.21 10*3/uL Normal <0.46 [place] Comment on above: Order Comment: Speci men Type: BLOOD SPECIMEN Ordering Facility: [facility] Address: [address] [address] Performed By: #### 5 7021-8 #### [facility] CLIA [id number] [address] [place] [address] [place] Eosinophils/100 WBC (Bld) 4.5 % Normal [place] Comment on above: Order Comment: Speci men Type: BLOOD SPECIMEN Ordering Facility: [facility] Address: [address] [address] Performed By: #### 5 7021-8 #### [facility] [place] [id number] [address] [place] [address] [place] Erythrocyte distribution width (RBC) [Ratio] 18.9 % High 11.5-15.0 [place] Comment on above: Order Comment: Speci men Type: BLOOD SPECIMEN Ordering Facility: [facility] Address: [address] Performed By: #### 5 7021-8 #### [facility] CLIA [id number] [address] [place] [address] [place] Hematocrit (Bld) [Volume fraction] 39.1 % Normal 39.0-51.0 [place] Comment on above: Order Comment: Speci men Type: BLOOD SPECIMEN Ordering Facility: [facility] Address: [address] Performed By: #### 5 7021-8 #### [facility] CLIA [id number] [address] [place], [place] [address] [place] Hemoglobin (Bld) [Mass/Vol] 11.6 g/dL Low 13.0-17.0 [place] Comment on above: Order Comment: Speci men Type: BLOOD SPECIMEN Ordering Facility: [facility] Address: [address] [place] [address] Performed By: #### 5 7021-8 #### [facility] CLIA [id number] [address] [place], [place] [address] [place] Immature granulocytes (Bld) [#/Vol] 10*3/uL Normal <0.10 [place] Comment on above: Order Comment: Speci men Type: BLOOD SPECIMEN Ordering Facility: [facility] Address: [address] [place] [address] Performed By: #### 5 7021-8 #### [facility] [place] [id number] [address] [place] [address] [place] Immature granulocytes/100 WBC (Bld) 0.2 % Normal [place] Comment on above: Order Comment: Speci men Type: BLOOD SPECIMEN Ordering Facility: [facility] Address: [address] [place] [address] Performed By: #### 5 7021-8 #### [facility] [place] [id number] [address] [place], [place] [address] [place] Lymphocytes (Bld) [#/Vol] 1.24 10*3/uL Normal 1.00-4.00 [place] Comment on above: Order Comment: Speci men Type: BLOOD SPECIMEN Ordering Facility: [facility] Address: [address] [place], [place] [address] Performed By: #### 5 7021-8 #### [facility] CLIA [id number] [address] [place], [place] [address] [place] Lymphocytes/100 WBC (Bld) 26.7 % Normal [place] Comment on above: Order Comment: Speci men Type: BLOOD SPECIMEN Ordering Facility: [facility] Address: [address] [address] Performed By: #### 5 7021-8 #### [facility] CLIA [id number] [address] [place] [address] [place] MCH (RBC) [Entitic mass] 22.3 pg Low 26.0-34.0 [place] Comment on above: Order Comment: Speci men Type: BLOOD SPECIMEN Ordering Facility: [facility] Address: [address] Performed By: #### 5 7021-8 #### [facility] CLIA [id number] [address] [place] [address] [place] MCHC (RBC) [Mass/Vol] 29.7 g/dL Low 30.5-36.0 [facility] Comment on above: Order Comment: Speci men Type: BLOOD SPECIMEN Ordering Facility: [facility] Address: [address] [address] Performed By: #### 5 7021-8 #### [facility] [place] [id number] [address] [place] [address] [place] MCV (RBC) [Entitic vol] 75.0 fL Low 80.0-100.0 [place] Comment on above: Order Comment: Speci men Type: BLOOD SPECIMEN Ordering Facility: [facility] Address: [address] Performed By: #### 5 7021-8 #### [facility] CLIA [id number] [address] [place] [address] [place] Monocytes (Bld) [#/Vol] 0.47 10*3/uL Normal <0.87 [place] Comment on above: Order Comment: Speci men Type: BLOOD SPECIMEN Ordering Facility: [facility] Address: [address] [place], [place] [address] Performed By: #### 5 7021-8 #### [facility] CLIA [id number] [address] [place] [address] [place] Monocytes/100 WBC (Bld) 10.1 % Normal [place] Comment on above: Order Comment: Speci men Type: BLOOD SPECIMEN Ordering Facility: [facility] Address: [address] [place] [address] Performed By: #### 5 7021-8 #### [facility] CLIA [id number] [facility] [place] [address] [place] Neutrophils (Bld) [#/Vol] 2.65 10*3/uL Normal 1.45-7.50 [place] Comment on above: Order Comment: Speci men Type: BLOOD SPECIMEN Ordering Facility: [facility] Address: [address] [place] [address] Performed By: #### 5 7021-8 #### [facility] [place] [id number] [address] [place] [address] [place] Neutrophils/100 WBC (Bld) 57.2 % Normal [place] Comment on above: Order Comment: Speci men Type: BLOOD SPECIMEN Ordering Facility: [facility] Address: [address] [place], [place] [address] Performed By: #### 5 7021-8 #### [facility] [place] [id number] [address] [place], [place] [address] [place] Nucleated RBC (Bld) [#/Vol] 10*3/uL Normal <0.01 [place] Comment on above: Order Comment: Speci men Type: BLOOD SPECIMEN Ordering Facility: [facility] Address: [address] [place], [place] [address] Performed By: #### 5 7021-8 #### [facility] CLIA [id number] [address] [place], [place] [address] [place] Nucleated RBC/100 WBC (Bld) [Ratio] 0.0 /100 WBC Normal [place] Comment on above: Order Comment: Speci men Type: BLOOD SPECIMEN Ordering Facility: [facility] Address: [address] [place] [address] Performed By: #### 5 7021-8 #### [facility] CLIA [id number] [address] [place] [address] [place] Platelet mean volume (Bld) [Entitic vol] 10.7 fL Normal 9.0-12.7 [place] Comment on above: Order Comment: Speci men Type: BLOOD SPECIMEN Ordering Facility: [facility] Address: [address] [place] [address] Performed By: #### 5 7021-8 #### [facility] CLIA [id number] [address] [place] [address] [place] Platelets (Bld) [#/Vol] 135 10*3/uL Low 150-400 [place] Comment on above: Order Comment: Speci men Type: BLOOD SPECIMEN Ordering Facility: [facility] Address: [address] [place] [address] Result Comment: No c lot detected. Performed By: #### 5 7021-8 #### [facility] CLIA [id number] [address] [place] [address] [place] RBC (Bld) [#/Vol] 5.21 10*6/uL Normal 4.20-6.00 [facility] Comment on above: Order Comment: Speci men Type: BLOOD SPECIMEN Ordering Facility: [facility] Address: [address] [place] [address] Performed By: #### 5 7021-8 #### [facility] CLIA [id number] [address] [place] [address] [place] WBC (Bld) [#/Vol] 4.64 10*3/uL Normal 3.70-11.00 [facility] Comment on above: Order Comment: Speci men Type: BLOOD SPECIMEN Ordering Facility: [facility] Address: [address] [place] [address] Performed By: #### 5 7021-8 #### [facility] CLIA [id number] [address] [place] [address] Comprehensive metabolic 2000 panelon 12-11-2022 Albumin [Mass/Vol] 4.7 g/dL Normal 3.9-4.9 [facility] Comment on above: Order Comment: Speci men Type: BLOOD SPECIMEN Ordering Facility: [facility] Address: [address] [place] [address] Performed By: #### H STNT, 29018-3, #### [facility] CLIA [id number] [address] [place] [address] ALP [Catalytic activity/Vol] 73 U/L Normal 38-113 [place] Comment on above: Order Comment: Speci men Type: BLOOD SPECIMEN Ordering Facility: [facility] Address: [address] [place] [address] Performed By: #### H STNT, 97694-8, #### [facility] IA [id number] [address] [place] [address] ALT [Catalytic activity/Vol] 16 U/L Normal 10-54 [place] Comment on above: Order Comment: Speci men Type: BLOOD SPECIMEN Ordering Facility: [facility] Address: [address] [place], [place] [address] Performed By: #### H STNT, 77613-4, 63599-0 #### [facility] CLIA [id number] [address] [place], [place] [address] [facility] Anion gap [Moles/Vol] 8 mmol/L Low 9-18 [facility] Comment on above: Order Comment: Speci men Type: BLOOD SPECIMEN Ordering Facility: [facility] Address: [address] [place] [address] Performed By: #### H STNT, 74236-2, 10145-0 #### [facility] CLIA [id number] [address] [place] [address] [place] AST [Catalytic activity/Vol] 18 U/L Normal 14-40 [place] Comment on above: Order Comment: Speci men Type: BLOOD SPECIMEN Ordering Facility: [facility] Address: [address] [place] [address] Performed By: #### H STNT, , #### [facility] CLIA [id number] [facility] [place] [address] [place] Bilirubin [Mass/Vol] 0.3 mg/dL Normal 0.2-1.3 [facility] Comment on above: Order Comment: Speci men Type: BLOOD SPECIMEN Ordering Facility: [facility] Address: [address] [place] [address] Performed By: #### H STNT, , #### [facility] CLIA [id number] [address] [place], [place] [address] [place] Calcium [Mass/Vol] 9.0 mg/dL Normal 8.5-10.2 [facility] Comment on above: Order Comment: Speci men Type: BLOOD SPECIMEN Ordering Facility: [facility] Address: [address] [place] [address] Performed By: #### H STNT, , #### [facility] CLIA [id number] [address] [place], [place] [address] [place] Chloride [Moles/Vol] 104 mmol/L Normal 97-105 [facility] Comment on above: Order Comment: Speci men Type: BLOOD SPECIMEN Ordering Facility: [facility] Address: [address] [place] [address] Performed By: #### H STNT, , #### [facility] CLIA [id number] [facility] [address] [place] [address] [place] CO2 [Moles/Vol] 27 mmol/L Normal 22-30 [place] Comment on above: Order Comment: Speci deanna Type: BLOOD SPECIMEN Ordering Facility: [facility] Address: [address] [phone] Performed By: #### H STNT, , #### [facility] CLIA [id number] [address] [place] [address] [place] Creatinine [Mass/Vol] 0.70 mg/dL Low 0.73-1.22 [facility] Comment on above: Order Comment: Speci men Type: BLOOD SPECIMEN Ordering Facility: [facility] Address: [address] [address] Performed By: #### H STNT, , #### [facility] CLIA [id number] [address] [place] [address] STATES [facility] ESTIMATED GLOMERULAR FILTRATION RATE 117 mL/min/1.73m??? Normal >=60 [place] Comment on above: Order Comment: Speci men Type: BLOOD SPECIMEN Ordering Facility: [facility] Address: [address] Result Comment: Belen mated Glomerular Filtration [...] Performed By: #### H STNT, , #### [facility] CLIA [id number] [address] [place], [place] [address] [place] Glucose [Mass/Vol] 120 mg/dL High 74-99 [facility] Comment on above: Order Comment: Speci men Type: BLOOD SPECIMEN Ordering Facility: [facility] Address: [address] [phone] Result Comment: The [place] Diabetes Association (ADA) provides guidance for cutoff [...] Standards of Medical Care in Diabetes 2016, [place] Diabetes Association. Diabetes Care. 2016.39(Suppl 1). Performed By: #### H STNT, , #### [facility] CLIA [id number] [address] [place] [address] [place] Potassium [Moles/Vol] 4.3 mmol/L Normal 3.7-5.1 [facility] Comment on above: Order Comment: Speci men Type: BLOOD SPECIMEN Ordering Facility: [facility] Address: [address] [place] [phone] Performed By: #### H STNT, , #### [facility] IA [id number] [address] [place] [address] [place] Protein [Mass/Vol] 7.4 g/dL Normal 6.3-8.0 [facility] Comment on above: Order Comment: Speci men Type: BLOOD SPECIMEN Ordering Facility: [facility] Address: [address] [place] [address] Performed By: #### H STNT, , #### [facility] CLIA [id number] [address] [place], [place] [address] [place] Sodium [Moles/Vol] 139 mmol/L Normal 136-144 [facility] Comment on above: Order Comment: Speci men Type: BLOOD SPECIMEN Ordering Facility: [facility] Address: [address] [place] [phone] Performed By: #### H STNT, 76137-2, 42818-2 #### [facility] CLIA [id number] [address] [place], [place] [address] [facility] Urea nitrogen [Mass/Vol] 9 mg/dL Normal 9-24 [place] Comment on above: Order Comment: Speci men Type: BLOOD SPECIMEN Ordering Facility: [facility] Address: [place] [address] Performed By: #### H STNT, 36779-2, 64904-3 #### [facility] CLIA [id number] [facility] [address] ECG COMPLETEon 12-11-2022 ECG COMPLETE Ventricular Rate : 67 BPM Atrial Rate : 66 BPM P-R Interval : 190 ms QRS Duration : 86 ms Q-T Interval : 390 ms QTC Calculation(Bazett) : 412 ms Calculated P Magness : 30 degrees Calculated R Magness : 35 degrees Calculated T Magness : 34 degrees Sinus rhythm Probable left atrial enlargement ST elev, probable normal early repol pattern Borderline ECG No Stemi BILL @ 1138 Confirmed by MD KHAN ANDREW ([id number]), photography editor BRENT MEADE ([id number]) on 12/13/2022 10:32:30 AM NAME : DELVIN LLOYD PID : [id number] : 1980 Gender : Male Race : ORD : [id number] Procedure Date : Dec 11 2022 11:23:15 Edit Date : Dec 13 2022 10:32:34 Diagnosis: Sinus rhythm Probable left atrial enlargement ST elev, probable normal early repol pattern Borderline ECG No Stemi BILL @ 1138 Confirmed by MD KHAN ANDREW ([id number]), photography editor BRENT MEADE ([id number]) on 12/13/2022 10:32:30 AM Test Reason : Chest Pain Location : 502 : LUED IT2 Overread By : MD KHAN ANDREW Edited By : BRENT MEADE Referred By : , Acquired by : Layne FIELD [place] ED NOTEon 12-11-2022 ED NOTE HNO ID: [id number] Author: Francisco Javier Patel RN Service: ? Author Type: Registered Nurse Type: ED Notes Filed: 12/11/2022 11:26 AM Note Text: Pt reports to the ED with co occipital headache that sometimes radiates to eyes and chest pain for past 2 weeks. Endorses periodical sob. Unsure aggravating factors. Has been taking ASA, APAP with min relief. Denies any recent falls, injuries [facility] ED PROV NOTEon 12-11-2022 ED PROV NOTE HNO ID: [id number] Author: Arcadio Pabon PA-C Service: Emergency Medicine Author Type: Physician Wine Steward Type: ED Provider Notes Filed: 12/11/2022 1:35 PM Note Text: ED Provider Note Patient Name: Delvin Mcmanus : 1980 SERVICE DATE: 12/11/22 History Patient presents with: Head Pain CC: Headache, neck pain, shoulder pain The history is provided by the patient through inbound ingredient logistics specialist. This is a 42 year old male [...] 34.0 pg (more content not included)... Normal [place] HIGH SENSITIVITY TROPONIN To n 12-11-2022 HIGH SENSITIVITY TR <6 Normal <12 [facility] Comment on above: Order Comment: Dwayne huerta Type: BLOOD SPECIMEN Ordering Facility: [facility] Address: [address] [phone] Result Comment: When assessing risk for acute [...] 30 day MACE. Performed By: #### [facility] #### [facility] CLIA [id number] [address] [place] [address] OF [facility] HIGH SENSITIVITY TR <6 Normal <12 [facility] Comment on above: Order Comment: Dwayne huerta Type: BLOOD SPECIMEN Ordering Facility: [facility] Address: [address] [place] [address] Result Comment: When assessing risk for acute [...] day MACE. Performed By: #### H STNT, 46602-4, #### [facility] CLIA [id number] [facility] [place] [address] [facility] Magnesium SerPl-mCncon 12-11 Magnesium [Mass/Vol] 1.8 mg/dL Normal 1.7-2.3 [facility] Comment on above: Order Comment: Speci men Type: BLOOD SPECIMEN Ordering Facility: [facility] Address: [address] [place] [phone] Performed By: #### H STNT, 67403-6, #### [facility] CLIA [id number] [address] [place], [place] [address] [facility] XR CHEST 2V FRONTAL/LATon XR CHEST [...] tissues: Unremarkable. IMPRESSION: No acute radiographic abnormality. Bisque Ware Dipper: PSCB Transcribe Date/Time: Dec 11 2022 12:21P Dictated by : HESHAM CHOU MD This examination was interpreted and the report reviewed and electronically signed by: HESHAM CHOU MD on Dec 11 2022 12:22PM EST [id number] Normal [place] ED NOTEon 11-05-2022 ED NOTE HNO ID: [id number] Author: Marissa Aguilar RN Service: ? Author Type: Registered Nurse Type: ED Notes Filed: 11/05/2022 8:20 PM Note Text: Pt received written and verbal discharge instructions. Instructed pt to follow up with PCP or follow-up DR. Instructed to come back to Emergency Room if symptoms worsen. Pt verbalized understanding. [facility] ED NOTE HNO ID: [id number] Author: JESUS MANUEL Corrigan Service: ? Author Type: Clinical Senior Master Scheduler Type: ED Notes Filed: 11/05/2022 7:27 PM Note Text: Pt presents to ED for flu like symptoms x4days. Pt states he has had a fever for x2days. Pt states he took ibuprofen yesterday and today for the fever. [facility] ED PROV NOTEon 11-05-2022 ED PROV NOTE HNO ID: [id number] Author: Brie Ward PA-C Service: Emergency Medicine Author Type: Physician Wine Steward Type: ED Provider Notes Filed: 11/11/2022 9:45 [...] infection Acute cough COVID-19 test performed per [facility] [place] policy for suspected COVID community exposure. MDM [...] time o (more content not included)... Normal [place] GROUP A STREPTOCOCCUS BY PCR on 11-05-2022 S. pyogenes DNA SHAHANA+probe Ql (Throat) Negative Normal Negative for Group A Streptococcus by PCR [place] Comment on above: Order Comment: Speci men Type: SPECIMEN FROM THROAT Ordering Facility: [facility] Address: [address] [address] Performed By: #### S TAPCR #### [facility] CLIA [id number] [address] [place] [address] [place] #### GASPCR #### [facility] CLIA [id number] [address] [place] RAPID GROUP A STREP RFLX TO PCRon 11-05-2022 S. pyogenes Ag Ql (Throat) Negative Normal Negative Group A Strep Screen [place] Comment on above: Order Comment: Speci men Type: SPECIMEN FROM THROAT Ordering Facility: [facility] Address: [address] [address] Performed By: #### S TAPCR #### [facility] CLIA [id number] [address] [place] [address] [place] #### GASPCR #### [facility] CLIA [id number] [address] [place] [address] [address] [place] [id number] [facility] CNOVon 01-06-2019 CNOV Office Visit (UROLMN) ---- DELVIN LLOYD ([id number]) 1980 M [facility] Date Time Provider Department 01/06/19 9:45 AM [...] Axel Alexander MD Referring Provider: AXEL ALEXANDER [[id number]] Allergies As of Date: 01/06/2019 (No Known Allergies) Date Reviewed: 01/06/2019 Reviewed by: Salvatore Mercedes Ma - Fully Assessed 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 #:[id number] Prescriptions as of 01/06/2019 Sig: TYLENOL EXTRA [...] by AXEL ALEXANDER MD on 01/06/19 Normal [facility] CT PELVIS W IVCONon 01-06-20 CT PELVIS W IVCON * * *Final Report* * * DATE OF EXAM: Jan 06 2019 9:11AM [facility] [place]ELVIS W IVCON / [...] RIGHT EXTERNAL ILIAC NODE. NO INGUINAL LYMPHADENOPATHY. Bisque Ware Dipper: SABRA Transcribe Date/Time: Jan 06 2019 9:58A Dictated by : CHRISTIANO SCHAEFFER MD This examination was interpreted and the report reviewed and electronically signed by: SOCORRO SCHMIDT MD on Jan 06 2019 11:54AM EST [id number] Normal [facility] PROGRESSon 01-06-2019 Protein mass conc HNO ID: [id number] Author: Axel Alexander Service: (none) Author Type: [...] at present Signature: Axel Alexander MD Normal [facility] Protein mass conc HNO ID: [id number] Author: Carlotta Omalley Service: (none) Author Type: [...] Carlotta Omalley January 06, 2019 9:[address] [facility] Protein mass conc HNO ID: [id number] Author: Hesham (Rn) MATTHEW Samuels Service: Radiology [...] - 1.4 mg/dL Final Comment: Meter ID: [id number] Location: [facility] Radiology [address] [place] [address] Meter ID: [id number] eGFR-All Other Races Date Value Ref Range [...] RN January 06, 2019 8:40 AM Normal [facility] Urinalysison 01-06-2019 Bilirubin, Urine Negative Normal Negative [facility] Comment on above: Performed By: #### U A ####[address] [phone] Clarity Nom (U) Clear Normal Clear [facility] Comment on above: Performed By: #### U A ####[address] [phone] Color Nom (U) Yellow Normal Yellow [facility] Comment on above: Performed By: #### U A ####[address] [phone] Comments SEE COMMENT Normal [facility] Comment on above: Result Comment: Micr oscopic not warranted Performed By: #### U A ####[address] [phone] Glucose Ql (U) Negative Normal Negative [facility] Comment on above: Performed By: #### U A ####[address] [address] [address] [phone] Hemoglobin/Blood,Ur Negative Normal Negative [facility] Comment on above: Performed By: #### U A ####[address] [address] [address] [phone] Ketones Ql (U) Negative Normal Negative [facility] Comment on above: Performed By: #### U A ####[address] [phone] Leukest Negative Normal Negative [facility] Comment on above: Performed By: #### U A ####[address] [phone] Nitrite Ql (U) Negative Normal Negative [facility] Comment on above: Performed By: #### U A ####[address] [phone] pH (Bld) 7.0 Normal 4.5-8.0 [facility] Comment on above: Performed By: #### U A ####[address] [phone] Protein mass conc (U) Negative Normal Negative [facility] Comment on above: Performed By: #### U A ####[address] [address] [address] [phone] Specific [place], Ur 1.035 High 1.005-1.030 [facility] Comment on above: Performed By: #### U A ####[address] [address] [address] [phone] Urine Shravan Comment SEE COMMENT Normal [facility] Comment on above: Result Comment: N/A Performed By: #### U A ####[facility] [place], [place] [phone] Urobilinogen Qn (U) Normal Normal Normal [facility] Comment on above: Performed By: #### U A ####[facility] [place], [place] [phone] CNOVon 09-04-2018 CNOV Office Visit (UROLMN) ---- DELVIN LLOYD ([id number]) 1980 M [facility] Date Time Provider Department 09/04/18 7:45 AM [...] Axel Alexander MD Referring Provider: AXEL ALEXANDER [[id number]] Allergies As of Date: 09/04/2018 (No Known Allergies) Date Reviewed: 09/04/2018 Reviewed by: Axel Alexander - Fully Assessed Primary Visit Diagnosis: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 #:[id number] CT PELVIS W IVCON [[id number]] Order #: [id number] FUTURE iv contrast (will be provided with [...] by AXEL ALEXANDER MD on 09/04/18 Normal [facility] PROGRESSon 09-04-2018 Protein mass conc HNO ID: [id number] Author: Axel Alexander Service: (none) Author Type: [...] at present Signature: Axel Alexander MD Normal [facility] Urinalysison 09-04-2018 Bilirubin, Urine Negative Normal Negative [facility] Comment on above: Performed By: #### U A ####[address] [address] [address] [phone] Clarity Nom (U) Clear Normal Clear [facility] Comment on above: Performed By: #### U A ####[address] [address] [address] [phone] Color Nom (U) Yellow Normal Yellow [facility] Comment on above: Performed By: #### U A ####[address] [address] [address] [phone] Comments SEE COMMENT Normal [facility] Comment on above: Result Comment: Micr oscopic not warranted Performed By: #### U A ####[address] [address] [address] [phone] Glucose Ql (U) Negative Normal Negative [facility] Comment on above: Performed By: #### U A ####[address] [address] [phone] Hemoglobin/Blood,Ur Negative Normal Negative [facility] Comment on above: Performed By: #### U A ####[address] [address] [address] [phone] Ketones Ql (U) Negative Normal Negative [facility] Comment on above: Performed By: #### U A ####[facility] [phone] Leukest Negative Normal Negative [facility] Comment on above: Performed By: #### U A ####[facility] [phone] Nitrite Ql (U) Negative Normal Negative [facility] Comment on above: Performed By: #### U A ####[facility], [place] [phone] pH (Bld) 6.0 Normal 4.5-8.0 [facility] Comment on above: Performed By: #### U A ####[address] [phone] Protein mass conc (U) Negative Normal Negative [facility] Comment on above: Performed By: #### U A ####[address] [phone] Specific [place], Ur 1.018 Normal 1.005-1.030 [facility] Comment on above: Performed By: #### U A ####[address] [phone] Urine Shravan Comment SEE COMMENT Normal [facility] Comment on above: Result Comment: N/A Performed By: #### U A ####[address] [phone] Urobilinogen Qn (U) Normal Normal Normal [facility] Comment on above: Performed By: #### U A ####[facility] [place], [place] [phone] Мария 05-06-2018 CNOV Office Visit (UROLMN) ---- DELVIN LLOYD ([id number]) 1980 M [facility] Date Time Provider Department 05/06/18 1:15 PM [...] found for: TESTOST A/P: 37yo M w/ [id number] penile cancer s/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 #:[id number] Prescriptions as of 05/06/2018 Sig: DIPHENHYDRAMINE 25 [...] by AXEL ALEXANDER MD on 05/06/18 Normal [facility] PROGRESSon 05-06-2018 Protein mass conc HNO ID: [id number] Author: Axel Alexander Service: (none) Author Type: Physician Type: Progress Notes Filed: 05/06/2018 6:08 PM Note Text: z Normal [facility] Protein mass conc HNO ID: [id number] Author: Axel Alexander Service: (none) Author Type: [...] found for: TESTOST A/P: 37yo M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
== END 2024-03-31 09:47 | disposition home or self-care (01) | DRG 812 ==
LOC: ER 08:09 → MS 03-31 07:52
PROVIDERS: Internal Medicine; Admitting Provider Internal Medicine; Emergency Provider Emergency Medicine; Visit Provider Nurse Practitioner
DX: D62 Acute posthemorrhagic anemia (principal); I10 Essential (primary) hypertension; R19.5 Other fecal abnormalities; D50.9 Iron deficiency anemia, unspecified; S81.811D Laceration without foreign body, right lower leg, subsequent encounter; X58.XXXD Exposure to other specified factors, subsequent encounter
CPT/HCPCS: 36415; 36430; 71045; 80048; 80053; 82728; 83540; 83550; 84484; 85007; 85014; 85018; 85025; 85027; 85378; 86850; 86900; 86901; 93005; 96374; 96376; 99285; G0328; P9016